=== PATIENT | female | born 1940 | race Caucasian/White ===

== ENCOUNTER 2017-12-11 12:42 | Inpatient (IN) | payer OTHER, MEDICARE ==
[~2017-12-11] VITALS: Ht 165.1 cm; Wt 97.8 kg
[2017-12-11] VITALS (19 sets, daily range): BP systolic 66–130; BP diastolic 40–60; PULSE 78–124; RESP 18–32; TEMP 94.6–96.1; O2SAT 88–100
[~2017-12-11 12:42] MED LIST: HYDR-3533 PO; HYDR200T3 PO; OYST500T77 PO; ST JTAB PO; TAB-TAB PO; UNKNOWN MED
[2017-12-11] MEDS ORDERED: SODIUM CHLOR 0.9% 1000 ML INJ 1,000 ML IV SCH ×2 (12:51→15:00)
[2017-12-11] MEDS ORDERED: SODIUM CHLORIDE 0.9% FLUSH 10 ML FLUSH IVF PRN (13:00)
[2017-12-11] MEDS ORDERED: METOCLOPRAMIDE HCL 10 MG/2 ML VIAL IV PUSH ONE (13:00)
[2017-12-11] MEDS ORDERED: MORPHINE SULFATE 4 MG/ML INJ IV PUSH ONE (13:00)
[2017-12-11] MEDS ORDERED: DIPHTH/TETANUS/ACEL PERTUSSIS (BOOSTER) 0.5 ML VIAL/PFS IM ONE (13:00)
[2017-12-11] MEDS ORDERED: fentaNYL CITRATE 250 MCG/5 ML AMP IV PUSH ONE (13:15)
[2017-12-11 13:23] LABS: AUTOMATED NEUTROPHIL # 15.9 TH/MM3 (1.8-7.7); BASOPHIL # 0.1 TH/MM3 (0-0.2); BASOPHIL % 0.3 % (0.0-2.0); EOSINOPHIL # 0.1 TH/MM3 (0-0.4); EOSINOPHIL % 0.7 % (0.0-4.0); HEMATOCRIT 31.2 % (35.0-46.0); HEMOGLOBIN 10.5 GM/DL (11.6-15.3); LYMPH % 19.4 % (9.0-44.0); MEAN CELL VOLUME 88.5 FL (80.0-100.0); MEAN CORPUSCULAR HEMOGLOBIN 29.7 PG (27.0-34.0); MEAN CORPUSCULAR HGB CONC 33.6 % (32.0-36.0); MEAN PLATELET VOLUME 8.4 FL (7.0-11.0); MONO % 3.3 % (0.0-8.0); MONOCYTE # 0.7 TH/MM3 (0-0.9); NEUT % 76.3 % (16.0-70.0); PLATELET COUNT 208 TH/MM3 (150-450); RED BLOOD COUNT 3.52 MIL/MM3 (4.00-5.30); RED CELL DISTRIBUTION WIDTH 13.6 % (11.6-17.2); WHITE BLOOD COUNT 20.8 TH/MM3 (4.0-11.0)
[2017-12-11 13:31] LABS: INTERNATIONAL NORMALIZED RATIO 1.1 RATIO; PROTHROMBIN TIME - PATIENT 11.4 SEC (9.8-11.6)
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
[2017-12-11 13:49] LABS: BICARBONATE 17.6 MEQ/L (21.0-32.0); CALCIUM 8.3 MG/DL (8.5-10.1); CREATININE 1.01 MG/DL (0.50-1.00)
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
[2017-12-11] MEDS ORDERED: IOHEXOL 350 MG/ML 10 ML VIAL (for RAD DIAG) IVCONTRAST ONE (13:56)
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
[2017-12-11] MEDS ORDERED: NOREPINEPHRINE-DEXTROSE DRIP 250 ML IV ONE (14:31)
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
[2017-12-11] MEDS ORDERED: MIDAZOLAM HCL 5 MG/ML VIAL (1 ML) ONE (14:43)
[2017-12-11] MEDS ORDERED: ROCURONIUM INJ 50 MG/5 ML VIAL ONE (14:43)
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
[2017-12-11] MEDS ORDERED: SODIUM BICARBONATE 8.4% INJ 50 MEQ/50 ML SYR ONE ×3 (16:44→18:27)
[2017-12-11] MEDS ORDERED: ALBUMIN 5% INJ 500 ML IV ONE (17:00)
--- NOTE | 2017-12-11 17:03 | ECHRPT ---
Indication: TRAUMA CONCLUSIONS Normal left ventricular size. The left ventricle is not well visualized. Moderate concentric left ventricular hypertrophy. The left ventricular systolic function is hyperdynamic with an estimated ejection fraction in the ra nge of 65- 70%. Mildly dilated descending thoracic aorta. Mitral annular calcification is present. Aortic valve sclerosis is present. Mild aortic valve regurgitation. There is trace tricuspid valve regurgitation. Mild pulmonary valve regurgitation. BP: / HR: Rhythm: MEASUREMENTS (Male / Female) Normal Values Technical Quality: 2D ECHO LV Diastolic Diameter PLAX 4.1 cm 4.2 - 5.9 / 3.9 - 5.3 cm LV Systolic Diameter PLAX 3.2 cm IVS Diastolic Thickness 1.1 cm 0.6 - 1.0 / 0.6 - 0.9 cm LVPW Diastolic Thickness 0.7 cm 0.6 - 1.0 / 0.6 - 0.9 cm LV Relative Wall Thickness 0.4 RV Internal Dim ED PLAX 1.9 cm M-MODE Aortic Root Diameter MM 3.3 cm AV Cusp Separation MM 2.0 cm DOPPLER Mitral E Point Velocity 60.7 cm/s Mitral A Point Velocity 74.0 cm/s Mitral E to A Ratio 0.8 TR Peak Velocity 337.0 cm/s TR Peak Gradient 45.4 mmHg Right Atrial Pressure 10.0 mmHg Pulmonary Artery Systolic Pressu 55.4 mmHg Right Ventricular Systolic Press 55.4 mmHg FINDINGS LEFT VENTRICLE Normal left ventricular size. The left ventricle is not well visualized. Moderate concentric left ventricular hypertrophy. The left ventricular systolic function is hyperdynamic with an estimated ejection fraction in the ra nge of 65- 70%. RIGHT VENTRICLE Normal right ventricular size and systolic function. LEFT ATRIUM The left atrial size is normal. RIGHT ATRIUM The right atrial size is normal. ATRIAL SEPTUM Normal atrial septal thickness without atrial level shunting by limited color doppler interrogation. AORTA The aortic root and proximal ascending aorta are normal in size on limited imaging. Mildly dilated descending thoracic aorta. MITRAL VALVE Mitral annular calcification is present. AORTIC VALVE Aortic valve sclerosis is present. Mild aortic valve regurgitation. TRICUSPID VALVE There is trace tricuspid valve regurgitation. PULMONARY VALVE Mild pulmonary valve regurgitation. VESSELS The inferior vena cava is normal in size. PERICARDIUM No pericardial effusion. Jose Golden MD, FACC (Electronically Signed) Final Date:11 December 2017 17:02
[2017-12-11] MEDS: VASOPRESSIN INJ 40 UNITS in DEXTROSE 5% IN WATER 100ML INJ 98 ML IV SCH ×2 (18:19)
[2017-12-11 18:25] LABS: ALBUMIN 1.7 GM/DL (3.4-5.0); CALCIUM 5.6 MG/DL (8.5-10.1); CREATININE 0.75 MG/DL (0.50-1.00); TOTAL BILIRUBIN ADULT 0.3 MG/DL (0.2-1.0); TOTAL PROTEIN 3.4 GM/DL (6.4-8.2)
[2017-12-11 18:28] LABS: CALCIUM-PROTEIN CORRECTED 7.3 MG/DL (8.5-10.1)
[2017-12-11] MEDS ORDERED: CALCIUM GLUCONATE 10% 1 GM/10 ML VIAL ONE (18:34)
[2017-12-11] MEDS ORDERED: CALCIUM GLUCONATE 10% 1 GM/10 ML VIAL IV PUSH ONE (18:40)
[2017-12-11] MEDS ORDERED: CALCIUM CHLORIDE 10% SOLN 1 GRAM/10 ML SYR IV ONE (18:40)
[2017-12-11] MEDS ORDERED: SODIUM BICARBONATE 8.4% INJ 50 MEQ/50 ML SYR IV ONE (18:40)
[2017-12-11] MEDS ORDERED: SODIUM CHLOR 0.9% 1000 ML INJ 1,000 ML IV ONE (18:45)
[2017-12-11] MEDS: SODIUM BICARBONATE 8.4% INJ 75 MEQ in SODIUM CHLOR 0.9% 1000 ML INJ 1,000 ML IV SCH (19:00)
[2017-12-11 19:11] LABS: AUTOMATED NEUTROPHIL # 8.4 TH/MM3 (1.8-7.7); BASOPHIL % 0.4 % (0.0-2.0); EOSINOPHIL % 0.2 % (0.0-4.0); HEMOGLOBIN 8.5 GM/DL (11.6-15.3); LYMPH % 7.7 % (9.0-44.0); LYMPHOCYTE # 0.8 TH/MM3 (1.0-4.8); MEAN CELL VOLUME 83.5 FL (80.0-100.0); MEAN CORPUSCULAR HEMOGLOBIN 28.3 PG (27.0-34.0); MEAN CORPUSCULAR HGB CONC 33.9 % (32.0-36.0); MEAN PLATELET VOLUME 7.2 FL (7.0-11.0); MONO % 5.3 % (0.0-8.0); MONOCYTE # 0.5 TH/MM3 (0-0.9); NEUT % 86.4 % (16.0-70.0); PLATELET COUNT 37 TH/MM3 (150-450); RED BLOOD COUNT 2.99 MIL/MM3 (4.00-5.30); RED CELL DISTRIBUTION WIDTH 19.1 % (11.6-17.2); WHITE BLOOD COUNT 9.8 TH/MM3 (4.0-11.0)
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
[2017-12-11] MEDS ORDERED: PHENYLEPHRINE HCL 10 MG/ML VIAL ONE (20:00)
[2017-12-11 20:08] LABS: BANDS 23 % (0-6); LYMPHOCYTES 2 % (9-44); METAMYELOCYTES 1 % (0-1); MONOCYTES 1 % (0-8); NEUTROPHIL # MANUAL DIFF 9.5 TH/MM3 (1.8-7.7); POLYS (SEG NEUTROPHILS) 73 % (16-70)
[2017-12-11 20:11] LABS: BURR CELLS 1+ (NORMAL); OVALOCYTES 1+ (NORMAL); TEARDROP RBCS 1+ (NORMAL)
[2017-12-11 20:44] LABS: INTERNATIONAL NORMALIZED RATIO 2.9 RATIO; PROTHROMBIN TIME - PATIENT 29.1 SEC (9.8-11.6)
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
[2017-12-11] MEDS ORDERED: PHENYLEPHRINE 40 MG in D5W 500 ML IV PRN (22:00)
[2017-12-11] MEDS ORDERED: NOREPINEPHRINE 4 MG/D5W 250 ML IV PRN (22:00)
[2017-12-11] MEDS ORDERED: SODIUM CHLOR 0.9% 1000 ML INJ 2,000 ML IV ONE (22:15)
[2017-12-11] MEDS ORDERED: NOREPINEPHRINE 8 MG/D5W 250 ML IV PRN ×2 (22:15)
[2017-12-11] MEDS ORDERED: PHENYLEPHRINE HCL 80 MG/D5W 492 ML ADMIX IV PRN ×2 (22:30)
[2017-12-11] MEDS ORDERED: SODIUM BICARBONATE 8.4% SOLN 50 MEQ/50 ML VIAL IV ONE (22:45)
[2017-12-11] MEDS ORDERED: NOREPINEPHRINE 16 MG/D5W 250 ML IV PRN ×2 (23:00)
[2017-12-11 23:09] LABS: HEMATOCRIT 26.3 % (35.0-46.0); HEMOGLOBIN 9.1 GM/DL (11.6-15.3); MEAN CELL VOLUME 87.8 FL (80.0-100.0); MEAN CORPUSCULAR HEMOGLOBIN 30.4 PG (27.0-34.0); MEAN CORPUSCULAR HGB CONC 34.6 % (32.0-36.0); MEAN PLATELET VOLUME 7.2 FL (7.0-11.0); PLATELET COUNT 311 TH/MM3 (150-450); RED CELL DISTRIBUTION WIDTH 15.6 % (11.6-17.2); WHITE BLOOD COUNT 8.8 TH/MM3 (4.0-11.0)
[2017-12-11] MEDS ORDERED: TERBUTALINE INJ 1 MG/ML AMP SQ PRN (23:15)
[2017-12-11] MEDS ORDERED: PHENYLEPHRINE HCL 160 MG/D5W 484 ML ADMIX IV PRN ×2 (23:15)
[2017-12-11] MEDS: MIDAZOLAM 50 MG/NS 50 ML DRIP Premix IV PRN (23:43)
[2017-12-12] VITALS (19 sets, daily range): BP systolic 75–159; BP diastolic 40–86; PULSE 91–182; RESP 25–36; TEMP 97–99.3; O2SAT 83–100
[2017-12-12] MEDS ORDERED: SODIUM BICARBONATE 8.4% SOLN 50 MEQ/50 ML VIAL IV SCH (02:00)
[2017-12-12 02:09] LABS: AUTOMATED NEUTROPHIL # 4.2 TH/MM3 (1.8-7.7); BASOPHIL % 0.2 % (0.0-2.0); EOSINOPHIL % 0.1 % (0.0-4.0); HEMATOCRIT 24.5 % (35.0-46.0); HEMOGLOBIN 8.2 GM/DL (11.6-15.3); LYMPH % 12.8 % (9.0-44.0); LYMPHOCYTE # 0.7 TH/MM3 (1.0-4.8); MEAN CELL VOLUME 90.2 FL (80.0-100.0); MEAN CORPUSCULAR HGB CONC 33.3 % (32.0-36.0); MEAN PLATELET VOLUME 7.1 FL (7.0-11.0); MONO % 5.4 % (0.0-8.0); MONOCYTE # 0.3 TH/MM3 (0-0.9); NEUT % 81.5 % (16.0-70.0); PLATELET COUNT 97 TH/MM3 (150-450); RED BLOOD COUNT 2.71 MIL/MM3 (4.00-5.30); RED CELL DISTRIBUTION WIDTH 15.1 % (11.6-17.2); WHITE BLOOD COUNT 5.2 TH/MM3 (4.0-11.0)
[2017-12-12 02:16] LABS: INTERNATIONAL NORMALIZED RATIO 1.5 RATIO; PROTHROMBIN TIME - PATIENT 15.1 SEC (9.8-11.6)
[2017-12-12 03:52] LABS: BANDS 26 % (0-6); LYMPHOCYTES 14 % (9-44); METAMYELOCYTES 2 % (0-1); MONOCYTES 2 % (0-8); NEUTROPHIL # MANUAL DIFF 4.4 TH/MM3 (1.8-7.7); POLYS (SEG NEUTROPHILS) 56 % (16-70)
[2017-12-12 06:30] LABS: INTERNATIONAL NORMALIZED RATIO 1.5 RATIO; PROTHROMBIN TIME - PATIENT 14.7 SEC (9.8-11.6)
[2017-12-12 08:05] LABS: BASOPHIL % 0.2 % (0.0-2.0); EOSINOPHIL % 0.2 % (0.0-4.0); HEMATOCRIT 34.8 % (35.0-46.0); HEMOGLOBIN 12.1 GM/DL (11.6-15.3); LYMPH % 10.2 % (9.0-44.0); LYMPHOCYTE # 0.7 TH/MM3 (1.0-4.8); MEAN CELL VOLUME 87.5 FL (80.0-100.0); MEAN CORPUSCULAR HEMOGLOBIN 30.4 PG (27.0-34.0); MEAN CORPUSCULAR HGB CONC 34.8 % (32.0-36.0); MEAN PLATELET VOLUME 7.2 FL (7.0-11.0); MONO % 2.8 % (0.0-8.0); MONOCYTE # 0.2 TH/MM3 (0-0.9); NEUT % 86.6 % (16.0-70.0); PLATELET COUNT 118 TH/MM3 (150-450); RED BLOOD COUNT 3.98 MIL/MM3 (4.00-5.30); RED CELL DISTRIBUTION WIDTH 14.5 % (11.6-17.2); WHITE BLOOD COUNT 6.9 TH/MM3 (4.0-11.0)
[2017-12-12 08:41] LABS: ALBUMIN 2.7 GM/DL (3.4-5.0); CALCIUM 5.4 MG/DL (8.5-10.1); CREATININE 1.62 MG/DL (0.50-1.00); TOTAL BILIRUBIN ADULT 0.9 MG/DL (0.2-1.0); TOTAL PROTEIN 5.2 GM/DL (6.4-8.2)
[2017-12-12 09:09] LABS: CALCIUM-PROTEIN CORRECTED 6.2 MG/DL (8.5-10.1)
--- NOTE | 2017-12-12 09:12 | EKG ---
Date Performed: 12/11/2017 Time Performed: 17:20:14 PTAGE: 77 years EKG: Atrial fibrillation. Incomplete RBBB Anterolateral T wave changes are nonspecific Abnormal ECG PREVIOUS TRACING : 05/25/2013 22.17 DOCTOR: Jose Golden Interpretating Date/Time 12/12/2017 09:11:32
[2017-12-12] MEDS ORDERED: CALCIUM GLUCONATE 10% 1 GM/10 ML VIAL IV PUSH ONE (09:15)
[2017-12-12] MEDS ORDERED: CALCIUM GLUCONATE 10% 1 GM/10 ML VIAL ONE (09:32)
[2017-12-12] MEDS ORDERED: POTASSIUM CHLOR 40 MEQ PREMIX 100 ML IV PRN ×2 (09:45)
[2017-12-12] MEDS ORDERED: BISACODYL 10 MG SUPP RECTAL PRN (09:45)
[2017-12-12] MEDS ORDERED: POTASSIUM PHOSPHATE MONOBASIC 500 MG TAB PO/TUBE PRN (09:45)
[2017-12-12] MEDS ORDERED: MAGNESIUM SULFATE INJ 2 GM in SODIUM CHLORIDE 0.9% INJ 96 ML IV PRN (09:45)
[2017-12-12] MEDS ORDERED: CHLORHEXIDINE GLUCONATE 2 % 1 PACK (2 CLOTHS) TOP PRN (09:45)
[2017-12-12] MEDS ORDERED: NURSING INFORMATION XX SCH (09:45)
[2017-12-12] MEDS ORDERED: GLUCAGON 1 MG/ML VIAL OTHER PRN (09:45)
[2017-12-12] MEDS ORDERED: LACTULOSE SYRUP 20 GM/30 ML CUP PO PRN (09:45)
[2017-12-12] MEDS ORDERED: MAGNESIUM SULFATE INJ 4 GM in SODIUM CHLORIDE 0.9% INJ 92 ML IV PRN (09:45)
[2017-12-12] MEDS ORDERED: POTASSIUM PHOSPHATE MONOBASIC 500 MG TAB PO PRN (09:45)
[2017-12-12] MEDS ORDERED: MAGNESIUM OXIDE 400 MG TAB PO PRN (09:45)
[2017-12-12] MEDS ORDERED: SODIUM PHOSPHATE INJ 30 MMOL in SODIUM CHLOR 0.9% 250 ML INJ 240 ML IV PRN (09:45)
[2017-12-12] MEDS ORDERED: SENNOSIDES 8.6 MG TAB PO PRN (09:45)
[2017-12-12] MEDS ORDERED: POTASSIUM PHOSPHATE INJ 30 MMOL in SODIUM CHLOR 0.9% 250 ML INJ 250 ML IV PRN (09:45)
[2017-12-12] MEDS: VASOPRESSIN INJ 40 UNITS in DEXTROSE 5% IN WATER 100ML INJ 98 ML IV SCH ×2 (10:04)
--- NOTE | 2017-12-12 11:05 | RADRPT ---
EXAM DATE: 12/12/2017 10:40 AM EDT AGE/SEX: 77 years / Female INDICATIONS: Follow-up for head injury. CLINICAL DATA: This is the patient's subsequent encounter. Patient reports that signs and symptoms h ave been present for 2 days and indicates a pain score of Nonresponsive. MEDICAL/SURGICAL HISTORY: Lupus. Hysterectomy. RADIATION DOSE: 66.03 CTDI (mGy) ;Tabletop exam ; Patient positioning COMPARISON: [facility] [place] BRAIN W/O CONTRAST, 12/11/2017. . TECHNIQUE: CT of the head without contrast. Using automated exposure control and adjustment of the mA and/or kV according to patient size, radiation dose was kept as low as reasonably achievable to ob tain optimal diagnostic quality images. FINDINGS: There is central and cortical atrophy with dilatation of ventricular and sulcal spaces. There is no parenchymal hemorrhage, acute infarction or mass lesion identified. There are no extra-axial fluid c ollections appreciated. Periventricular white matter changes are noted. The posterior fossa is unrem arkable with midline fourth ventricle. The portion of the orbits and paranasal sinuses visualized are unremarkable. CONCLUSION: Atrophy, otherwise negative for an acute process. There is no parenchymal hemorrhage. Juan R Dillard MD FACR Electronically signed by: Juan R Dillard MD 12/12/2017 11:03 AM EDT
[2017-12-12] MEDS: POTASSIUM CHLOR 20 MEQ PREMIX 100 ML IV PRN ×4 (11:30→15:00)
[2017-12-12] MEDS: MIDAZOLAM 50 MG/NS 50 ML DRIP Premix IV PRN (11:33)
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
[2017-12-12] MEDS ORDERED: CALCIUM GLUCONATE INJ 2 GM in SODIUM CHLORIDE 0.9% INJ 100 ML IV ONE (12:00)
[2017-12-12] MEDS: INSULIN ASPART SUPPLEMENTAL SCALE SQ SCH ×2 (12:00→17:49)
--- NOTE | 2017-12-12 12:10 | RADRPT ---
EXAM DATE: 12/12/2017 10:45 AM EDT AGE/SEX: 77 years / Female INDICATIONS: Follow-up for trauma. CLINICAL DATA: This is the patient's subsequent encounter. Patient reports that signs and symptoms h ave been present for 2 days and indicates a pain score of Nonresponsive. MEDICAL/SURGICAL HISTORY: Lupus. T-spine fractures, pelvic fractures. Hysterectomy. RADIATION DOSE: 10.13 CTDI (mGy) COMPARISON: [facility] [place], CT THORAX W CONTRAST, 12/11/2017. . TECHNIQUE: Multiple contiguous axial images were obtained through the chest without contrast. Image s were obtained in suspended respiration using multiple row detector helical technique. Using automa onur exposure control and adjustment of the mA and/or kV according to patient size, radiation dose was kept as low as reasonably achievable to obtain optimal diagnostic quality images. FINDINGS: There are fractures of T6, T7 and T11 with multiple bilateral lower rib fractures, similar in appeara nce to CT thoracic spine from December 11. Patient is intubated with endotracheal tube tip in proximal ri ght mainstem bronchus. This should be withdrawn about 3 cm. Over the last day there is some new perih ilar airspace consolidation and bibasilar consolidation has increased. There is placement of a right chest tube with decrease in size of right pleural effusion. Left pleural effusion has increased in si ze over the last day. There is no recurrent pneumothorax. There is development of anasarca to moderat e degree and ascites is now visualized in the upper abdomen. NG is coiled in stomach. CONCLUSION: 1. Intubation with ET tube tip in proximal right mainstem bronchus. This should be withdrawn about 3 cm. There is also a right central line with tip in superior vena cava. NG is coiled in stomach. Righ t chest tube is present without pneumothorax. 2. Increasing bilateral lung consolidation including basilar and dependent airspace disease and new consolidation anterior segment right upper lobe. 3. Decrease in right pleural effusion with chest tube placement. Increasing left pleural effusion an d basilar consolidation. 4. Development of anasarca and ascites in the upper abdomen. Electronically signed by: Addison Carmen MD 12/12/2017 12:09 PM EDT
--- NOTE | 2017-12-12 12:16 | RADRPT ---
EXAM DATE: 12/12/2017 10:47 AM EDT AGE/SEX: 77 years / Female INDICATIONS: Follow-up for trauma. CLINICAL DATA: This is the patient's subsequent encounter. Patient reports that signs and symptoms h ave been present for 2 days and indicates a pain score of Nonresponsive. MEDICAL/SURGICAL HISTORY: Lupus. T-spine fractures, pelvic fractures. Hysterectomy. RADIATION DOSE: 10.13 CTDI (mGy) ; Combined studies COMPARISON: [facility] [place], CT ABDOMEN & PELVIS W CONTRAST, 12/11/2017. . TECHNIQUE: Multiple contiguous axial images were obtained through the abdomen. Images were obtained using multiple row detector helical technique. Using dose reduction techniques, radiation dose was ke pt as low as reasonably achievable to obtain optimal diagnostic quality images. FINDINGS: Again seen are multiple thoracic spine fractures, including T6, T7 and T11 bilateral lower rib fractu res. Fracture of the right iliac bone and right sacral alar relatively stable since December 11. Indications previous exam a right chest tube has been placed with decrease in right pleural effusion. Increase in left effusion and basilar consolidation. There is development of mild to moderate anasarca since prior exam and ascites has developed, possibl y hemoperitoneum around the liver. The right-sided pelvic fracture is associated with development of a large hematoma on the right measuring up to 20.5 cm in length and 13.8 cm in diameter. There is some excretion of contrast into the gallbladder with multiple gallstones present. No definit e increase in the liver or spleen or adrenals or pancreas. There is some residual contrast in the kid neys. IVC is mildly flattened suggesting hypovolemia. There is previous anni fixation proximal right f emur. CONCLUSION: 1. Development of a large hematoma on the right centered around the right hemipelvis fractures measu ring up to 20.5 cm in length and 13.8 cm in diameter with development of mild to moderate ascites мария ecially around the liver and spleen which probably represents hemoperitoneum. 2. Development of mild to moderate anasarca. Increasing left effusion. Right chest tube with decreas e in right effusion. 3. Stable fractures of lower thoracic spine and bilateral lower ribs. Electronically signed by: Addison Carmen MD 12/12/2017 12:15 PM EDT
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
[2017-12-12 12:59] LABS: HEMATOCRIT 32.9 % (35.0-46.0); HEMOGLOBIN 11.5 GM/DL (11.6-15.3)
--- NOTE | 2017-12-12 13:28 | OTSOAPIP ---
TIME SESSION COMPLETED: AM TREATMENT TIME: 0 MINS. CHART REVIEWED. PATIENT ADMITTED WITH 1. COMMINUTED TYPE III C2 FRACTURE WITH MILD RETROPULSION. 2. C6 LEFT INFERIOR ARTICULAR FACET FRACTURE 3. [place] MILDLY TO MODERATELY DISPLACED T6-7 VERTEBRAL BODY FRACTURE WITH MILD TO MODERATE CANAL COMPROMISE. . 4. T11 INFERIOR VERTEBRAL BODY FRACTURE WITHOUT RETROPULSION PATIENT WILL NEED SURGICALLY CORRECTION WILL HOLD OCCUPATIONAL THERAPY AT THIS TIME. INTERDISCIPLINARY COMMUNICATION: CONSULTED WITH NURSING Therapist: CELI CARBONE/All Signature on file
--- NOTE | 2017-12-12 13:49 | MP ---
cc: Wayne Roberto MD DATE OF OPERATION: 12/11/2017 PREOPERATIVE DIAGNOSIS: Hemorrhagic shock, multiple traumatic injuries of the chest, abdomen and pelvis as well as spine. POSTOPERATIVE DIAGNOSIS: Hemorrhagic shock, multiple traumatic injuries of the chest, abdomen and pelvis as well as spine. OPERATIVE PROCEDURE: Intubation, placement of a triple lumen catheter and placement of the right chest tube. SURGEON: Wayne Roberto MD ANESTHESIA: General. ESTIMATED BLOOD LOSS: Minimal. INDICATIONS FOR PROCEDURE: This patient came hypotensive and somnolent to the ICU. It was clear that the patient was going to require a large amount of blood and blood products and was going to be intubated and ventilated. Therefore first intubation is carried out. The patient is sedated with some Versed and given a small amount of rocuronium in the face of her hypotension. The dentures were removed and then the patient is pre-bagged and pre-ventilated to 100% FIO2. With a bag mask, the curved blade is now inserted and vocal cords visualized. A size 8 mm endotracheal tube is placed and secured. Chest x-ray obtained. Bilateral breath sounds noted and end tidal CO2 was checked. The patient tolerated this part of the procedure well. The patient is now positioned and the right hemopneumothorax is attended. The area infiltrated with 1% Xylocaine. A small incision was made in the fifth intercostal space mid axillary line. This was deepened into the chest and then a 28-Romanian chest tube is placed and sutured in place with 0 silk connected to Pleur-Evac. About 450 mL of old blood obtained and the lung readily expands. Now, the right subclavian area was prepped and draped in usual fashion. The area infiltrated with 1% Xylocaine. A needle inserted in the right subclavian vein. Through the needle, a J-wire, dilator and triple lumen placed. The triple lumen was sutured in place with 2-0 silk and at the end of all the procedures, a chest x-ray obtained. The patient tolerated the procedures well. Wayne Roberto MD SJ/DL , 01:23 PM , 01:48 PM
[2017-12-12] MEDS: MORPHINE SULFATE 4 MG/ML INJ IV PUSH PRN ×3 (13:52→20:07)
[2017-12-12] MEDS ORDERED: FUROSEMIDE 20 MG/2 ML VIAL IV ONE (14:15)
[2017-12-12] MEDS ORDERED: SODIUM BICARBONATE 8.4% INJ 50 MEQ/50 ML SYR IV ONE (15:59)
[2017-12-12] MEDS: RESP: ALBUTEROL 2.5 MG/IPRATROPIUM 0.5 MG NEB (SCH) NEB ×2 (16:49→21:23)
[2017-12-12] MEDS: MAGNESIUM HYDROXIDE SUSP 30 ML CUP PO SCH ×2 (17:00→21:00)
[2017-12-12] MEDS: SODIUM BICARBONATE 8.4% INJ 75 MEQ in SODIUM CHLOR 0.9% 1000 ML INJ 1,000 ML IV SCH (17:03)
[2017-12-12] MEDS: DEXTROSE 50% IN WATER 50 ML SYRINGE IV PUSH PRN (17:49)
[2017-12-12 18:45] LABS: HEMATOCRIT 28.4 % (35.0-46.0); HEMOGLOBIN 9.8 GM/DL (11.6-15.3)
[2017-12-12] MEDS: CHLORHEXIDINE 0.12% (ORAL KIT) 15 ML CUP MT SCH (20:00)
[2017-12-12] MEDS: FAMOTIDINE 20 MG TAB PO SCH (21:00)
[2017-12-12] MEDS: DOCUSATE SODIUM 50 MG/SENNA 8.6 MG TAB PO SCH (21:00)
[2017-12-12 21:30] LABS: HEMATOCRIT 31.4 % (35.0-46.0); HEMOGLOBIN 10.9 GM/DL (11.6-15.3)
[2017-12-12] MEDS ORDERED: AMIODARONE 150 MG/D5W 97 ML BOLUS 10 MINUTES IV ONE ×2 (23:30)
[2017-12-12] MEDS ORDERED: AMIODARONE INJ 450 MG in D5W (EXCEL BAG) INJ 241 ML IV PRN (23:30)
[2017-12-12] MEDS: AMIODARONE INJ 450 MG in D5W (EXCEL BAG) INJ 241 ML IV PRN (23:49)
[2017-12-13] VITALS (17 sets, daily range): BP systolic 95–124; BP diastolic 54–78; PULSE 75–164; RESP 23–28; TEMP 97.2–99; O2SAT 87–100
[2017-12-13 01:39] LABS: AUTOMATED NEUTROPHIL # 12.2 TH/MM3 (1.8-7.7); BASOPHIL % 0.1 % (0.0-2.0); HEMATOCRIT 30.4 % (35.0-46.0); HEMOGLOBIN 10.4 GM/DL (11.6-15.3); LYMPH % 5.6 % (9.0-44.0); LYMPHOCYTE # 0.8 TH/MM3 (1.0-4.8); MEAN CELL VOLUME 85.1 FL (80.0-100.0); MEAN CORPUSCULAR HEMOGLOBIN 29.2 PG (27.0-34.0); MEAN CORPUSCULAR HGB CONC 34.3 % (32.0-36.0); MEAN PLATELET VOLUME 8.1 FL (7.0-11.0); MONOCYTE # 0.4 TH/MM3 (0-0.9); NEUT % 91.3 % (16.0-70.0); PLATELET COUNT 79 TH/MM3 (150-450); RED BLOOD COUNT 3.57 MIL/MM3 (4.00-5.30); RED CELL DISTRIBUTION WIDTH 14.5 % (11.6-17.2); WHITE BLOOD COUNT 13.4 TH/MM3 (4.0-11.0)
[2017-12-13 02:26] LABS: ALBUMIN 2.3 GM/DL (3.4-5.0); CALCIUM 5.7 MG/DL (8.5-10.1); CREATININE 1.55 MG/DL (0.50-1.00); MAGNESIUM 1.5 MG/DL (1.5-2.5); TOTAL BILIRUBIN ADULT 0.9 MG/DL (0.2-1.0); TOTAL PROTEIN 4.5 GM/DL (6.4-8.2)
[2017-12-13 02:28] LABS: CALCIUM-PROTEIN CORRECTED 6.9 MG/DL (8.5-10.1)
[2017-12-13] MEDS: RESP: ALBUTEROL 2.5 MG/IPRATROPIUM 0.5 MG NEB (SCH) NEB ×4 (02:40→21:22)
[2017-12-13 02:57] LABS: BANDS 24 % (0-6); CORRECTED NUCLEATED RBC 2 /100 WBC (0-0); LYMPHOCYTES 3 % (9-44); METAMYELOCYTES 2 % (0-1); MONOCYTES 2 % (0-8); NEUTROPHIL # MANUAL DIFF 12.7 TH/MM3 (1.8-7.7); NUCLEATED RED BLOOD CELL 2 (0-0); POLYS (SEG NEUTROPHILS) 69 % (16-70)
[2017-12-13 03:12] LABS: TEARDROP RBCS 1+ (NORMAL)
[2017-12-13] MEDS ORDERED: CALCIUM GLUCONATE INJ 2 GM in SODIUM CHLORIDE 0.9% INJ 100 ML IV ONE (03:15)
[2017-12-13] MEDS: METOPROLOL TARTRATE 5 MG/5 ML VIAL IV PUSH SCH ×4 (03:16→21:00)
[2017-12-13] MEDS: VASOPRESSIN INJ 40 UNITS in DEXTROSE 5% IN WATER 100ML INJ 98 ML IV SCH ×4 (03:24→21:08)
[2017-12-13] MEDS: CHLORHEXIDINE GLUCONATE 2 % 1 PACK (2 CLOTHS) TOP SCH (04:00)
--- NOTE | 2017-12-13 04:50 | RADRPT ---
EXAM DATE: 12/13/2017 4:42 AM EDT AGE/SEX: 77 years / Female INDICATIONS: Shortness of breath. CLINICAL DATA: This is the patient's subsequent encounter. Patient reports that signs and symptoms h ave been present for 2 days and indicates a pain score of Nonresponsive. MEDICAL/SURGICAL HISTORY: Non-responsive. Non-responsive. COMPARISON: [facility] [place], CHEST SINGLE AP, 12/11/2017. . FINDINGS: Single AP view the chest. Endotracheal tube and nasogastric tube, right-sided chest tube, and right s ubclavian central venous catheter remain in place. Lung volumes are low. Mild bilateral perihilar pul monary opacity no evidence of pneumothorax. CONCLUSION: 1. Low lung volumes with new perihilar opacity that may represent vascular crowding from the low vol umes or mild pulmonary edema. 2. No evidence of pneumothorax. 3. There has been apparent retraction of the endotracheal tube with the tip now approximately 5 cm a vanessa the gigi. Electronically signed by: Josué Galloway MD 12/13/2017 4:49 AM EDT
[2017-12-13 05:56] LABS: HEMOGLOBIN 10.3 GM/DL (11.6-15.3)
[2017-12-13] MEDS: INSULIN ASPART SUPPLEMENTAL SCALE SQ SCH ×4 (06:00→18:00)
[2017-12-13] MEDS ORDERED: DIGOXIN 0.5 MG/2 ML VIAL IV PUSH ONE (08:00)
[2017-12-13] MEDS: CHLORHEXIDINE 0.12% (ORAL KIT) 15 ML CUP MT SCH ×2 (08:00→20:00)
[2017-12-13] MEDS ORDERED: METOPROLOL TARTRATE 5 MG/5 ML VIAL IV PUSH ONE (08:00)
[2017-12-13] MEDS ORDERED: AMIODARONE INJ 450 MG in D5W (EXCEL BAG) INJ 241 ML IV PRN (08:15)
[2017-12-13 08:25] LABS: BICARBONATE 15.7 MEQ/L (21.0-32.0); CALCIUM 6.3 MG/DL (8.5-10.1); CREATININE 1.49 MG/DL (0.50-1.00)
[2017-12-13 08:50] LABS: CALCIUM-PROTEIN CORRECTED 7.6 MG/DL (8.5-10.1); TOTAL PROTEIN 4.4 GM/DL (6.4-8.2)
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
[2017-12-13] MEDS: MAGNESIUM HYDROXIDE SUSP 30 ML CUP PO SCH ×2 (09:12→21:00)
[2017-12-13] MEDS: DOCUSATE SODIUM 50 MG/SENNA 8.6 MG TAB PO SCH ×2 (09:12→21:00)
[2017-12-13] MEDS: FAMOTIDINE 20 MG TAB PO SCH ×2 (09:12→22:03)
--- NOTE | 2017-12-13 09:22 | RADRPT ---
EXAM DATE: 12/13/2017 8:34 AM EDT AGE/SEX: 77 years / Female INDICATIONS: Evaluate for fracture. CLINICAL DATA: This is the patient's subsequent encounter. Patient reports that signs and symptoms h ave been present for 1 day and indicates a pain score of Nonresponsive. MEDICAL/SURGICAL HISTORY: Non-responsive. Non-responsive. COMPARISON: No prior exams available for comparison. FINDINGS: Significant periarticular soft tissue swelling is noted. Cowd-xl-[id number] arthropathy is seen of the tibiotalar joint. There is joint space narrowing with mild subchondral sclerosis. Ankle mortise is we ll-maintained. Mild spurring is seen along the inferior surface of the medial malleolus. There is no evidence of acute fracture or dislocation. Spurs are identified at the Achilles tendon and plantar tendon attachment on the calcaneus. CONCLUSION: 1. Soft tissue swelling without evidence of acute fracture. 2. Mild to moderate arthropathy of the tibial talar joint 3. Calcaneal spurs. Electronically signed by: Romel Abad MD 12/13/2017 9:21 AM EDT
--- NOTE | 2017-12-13 09:24 | RADRPT ---
EXAM DATE: 12/13/2017 8:31 AM EDT AGE/SEX: 77 years / Female INDICATIONS: Evaluate for fracture. CLINICAL DATA: This is the patient's initial encounter. Patient reports that signs and symptoms have been present for 1 day and indicates a pain score of Nonresponsive. MEDICAL/SURGICAL HISTORY: Non-responsive. Non-responsive. COMPARISON: No prior exams available for comparison. FINDINGS: Soft tissue swelling is evident throughout the thigh and upper calf. Mild arthropathy of the patellofemoral joint is noted. Osseous structures are otherwise intact no evidence of acute fracture or dislocation. CONCLUSION: Soft tissue swelling without evidence of acute fracture. Mild patellofemoral arthropathy. Electronically signed by: Romel Abad MD 12/13/2017 9:22 AM EDT
--- NOTE | 2017-12-13 09:25 | RADRPT ---
EXAM DATE: 12/13/2017 8:33 AM EDT AGE/SEX: 77 years / Female INDICATIONS: Evaluate for fracture. CLINICAL DATA: This is the patient's initial encounter. Patient reports that signs and symptoms have been present for 1 day and indicates a pain score of Nonresponsive. MEDICAL/SURGICAL HISTORY: Non-responsive. Non-responsive. COMPARISON: No prior exams available for comparison. FINDINGS: Soft tissue swelling is evident throughout the lower thigh and upper calf. Bony structures are intact without evidence of acute fracture or dislocation. Significant patellofemoral degenerative disease is noted. Increased density in the suprapatellar burs a is characteristic of a joint effusion. CONCLUSION: Soft tissue swelling without evidence of acute fracture. Moderate patellofemoral degenerative joint disease. Suspect a small joint effusion. Electronically signed by: Romel Abad MD 12/13/2017 9:24 AM EDT
[2017-12-13] MEDS ORDERED: FUROSEMIDE 20 MG/2 ML VIAL IV PUSH ONE (10:15)
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
--- NOTE | 2017-12-13 11:05 | OTSOAPIP ---
TIME SESSION COMPLETED: TREATMENT TIME: MINS. CHART REVIEWED. S: PAIN: UNABLE TO RATE VENTILATED O: VIVIAN ARAUJO REQUESTS TO HOLD DUE TO UNSTABLE HR A: PATIENT RESPONSE TO TREATMENT:CONTINUE TO MONITOR P: EVALUATION WHEN STABLE _X_ PT WAS INSTRUCTED TO NOT GET OUT OF BED OR CHAIR WITHOUT ASSISTANCE. CALL SARAVIA WAS LEFT WITHIN REACH. DISABILITIES ELEMENTS SCORE - SELF-FEEDING ____ 4 = INDEPENDENT: EATS FROM A DISH AND DRINKS FROM A CUP OR GLASS PRESENTED IN THE CUSTOMARY MANNER ON TABLE OR TRAY. USES ORDINARY KNIFE, FORK, AND SPOON. ____ 3 = INDEPENDENT WITH DEVICE: USES AN ADAPTIVE OR ASSISTING DEVICE SUCH A STRAW, SPORK, OR ROCKING KNIFE OR REQUIRES MORE THAN A REASONABLE TIME TO EAT. ____ 2 = DEPENDENT - PARTIAL HELP REQUIRED: PERFORMS HALF OR MORE OF FEEDING TASKS BUT REQUIRES SUPERVISION (E.G., STANDBY, CUEING, OR COAXING), SETUP (APPLICATION OF ORTHOTICS), OR OTHER HELP. __X__ 1 = DEPENDENT - TOTAL HELP REQUIRED: EITHER PERFORMS LESS THAN HALF OF FEEDING TASKS, OR DOES NOT EAT OR DRINK FULL MEALS BY MOUTH AND RELIES AT LEAST IN PART ON OTHER MEANS OF ALIMENTATION, SUCH PARENTERAL OR GASTROSTOMY FEEDINGS. INTERDISCIPLINARY COMMUNICATION:VIVIAN ARAUJODEVELOPMENT TEAM LEAD RECOMMENDATION/ATTENTION CASE MANAGEMENT: EQUIPMENT: ___ 3-1 BEDSIDE COMMODE ___ DROP ARM COMMODE ___ SLIDING BOARD ___ SHOWER BENCH ___ NONE ___ OTHER: CONTINUED THERAPY: ___ OT AT REHAB ___ HOME WITH NO OT RECOMMENDED ___ HOME WITH HOME HEALTH OT ___ HOME WITH OUT PATIENT OT ___ REQUIRES SUPERVISION AT HOME FOR SAFETY ___ OTHER: Therapist: Elina Santiago OTR/L Signature on file
[2017-12-13] MEDS: DIGOXIN 0.5 MG/2 ML VIAL IV PUSH SCH ×2 (12:00→18:00)
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
[2017-12-13] MEDS: MIDAZOLAM 50 MG/50 ML INJ 50 ML IV PRN (13:57)
[2017-12-13 16:11] LABS: HEMATOCRIT 32.8 % (35.0-46.0); HEMOGLOBIN 11.4 GM/DL (11.6-15.3)
[2017-12-13 16:35] LABS: CALCIUM 6.5 MG/DL (8.5-10.1); CREATININE 1.45 MG/DL (0.50-1.00)
[2017-12-13 17:17] LABS: CALCIUM-PROTEIN CORRECTED 7.5 MG/DL (8.5-10.1)
[2017-12-13] MEDS: SODIUM BICARBONATE 8.4% INJ 75 MEQ in SODIUM CHLOR 0.9% 1000 ML INJ 1,000 ML IV SCH (18:23)
--- NOTE | 2017-12-13 19:00 | EKG ---
Date Performed: 12/12/2017 Time Performed: 23:13:22 PTAGE: 77 years EKG: Atrial fibrillation with uncontrolled ventricular response Possible inferior infarct - age undetermined Possible anterior infarct - age undetermined Lateral ST-T changes may be due to myocardi al ischemia Low QRS voltages in precordial leads when compared to prior EKG, patient now has rapid ve ntricular rate Abnormal ECG NO PREVIOUS TRACING DOCTOR: Zeenat Sandhu Interpretating Date/Time 12/13/2017 18:59:56
[2017-12-13 20:36] LABS: HEMATOCRIT 31.2 % (35.0-46.0); HEMOGLOBIN 10.6 GM/DL (11.6-15.3)
[2017-12-14] VITALS (18 sets, daily range): BP systolic 113–145; BP diastolic 53–67; PULSE 73–130; RESP 13–31; TEMP 97.3–98.2; O2SAT 92–99
[2017-12-14] LABS: HEMATOCRIT 30.2 % (35.0-46.0); HEMOGLOBIN 10.5 GM/DL (11.6-15.3)
[2017-12-14] MEDS: DIGOXIN 0.5 MG/2 ML VIAL IV PUSH SCH ×2 (00:07→08:20)
[2017-12-14] MEDS: METOPROLOL TARTRATE 5 MG/5 ML VIAL IV PUSH SCH ×3 (03:00→09:45)
[2017-12-14] MEDS: AMIODARONE INJ 450 MG in D5W (EXCEL BAG) INJ 241 ML IV PRN (03:02)
[2017-12-14] MEDS: CHLORHEXIDINE GLUCONATE 2 % 1 PACK (2 CLOTHS) TOP SCH (03:12)
[2017-12-14] MEDS: RESP: ALBUTEROL 2.5 MG/IPRATROPIUM 0.5 MG NEB (SCH) NEB ×4 (04:16→19:29)
--- NOTE | 2017-12-14 04:23 | RADRPT ---
EXAM DATE: 12/14/2017 4:04 AM EDT AGE/SEX: 77 years / Female INDICATIONS: Short of breath. CLINICAL DATA: This is the patient's subsequent encounter. Patient reports that signs and symptoms h ave been present for 4 - 6 days and indicates a pain score of Nonresponsive. MEDICAL/SURGICAL HISTORY: Non-responsive. Non-responsive. COMPARISON: [facility] [place], CHEST SINGLE AP, 12/13/2017. . FINDINGS: The ET tube, NG tube and right subclavian line are well placed. There is a right-sided chest tube. A pneumothorax is not seen. The heart size is enlarged. There is increased density at the left base wit h silhouetting of the left hemidiaphragm. The patient is status post vertebroplasty at T12. CONCLUSION: Cardiomegaly. Left lower lobe consolidation or atelectasis. Electronically signed by: Carlo Alcantar MD 12/14/2017 4:21 AM EDT
[2017-12-14 05:38] LABS: BASOPHIL % 0.1 % (0.0-2.0); EOSINOPHIL # 0.1 TH/MM3 (0-0.4); EOSINOPHIL % 0.6 % (0.0-4.0); HEMATOCRIT 29.3 % (35.0-46.0); HEMOGLOBIN 10.3 GM/DL (11.6-15.3); LYMPH % 5.7 % (9.0-44.0); LYMPHOCYTE # 0.8 TH/MM3 (1.0-4.8); MEAN CELL VOLUME 86.3 FL (80.0-100.0); MEAN CORPUSCULAR HEMOGLOBIN 30.3 PG (27.0-34.0); MEAN CORPUSCULAR HGB CONC 35.1 % (32.0-36.0); MEAN PLATELET VOLUME 9.3 FL (7.0-11.0); MONOCYTE # 0.3 TH/MM3 (0-0.9); NEUT % 91.6 % (16.0-70.0); PLATELET COUNT 66 TH/MM3 (150-450); RED CELL DISTRIBUTION WIDTH 14.6 % (11.6-17.2); WHITE BLOOD COUNT 14.2 TH/MM3 (4.0-11.0)
[2017-12-14] MEDS: INSULIN ASPART SUPPLEMENTAL SCALE SQ SCH ×5 (06:00→23:35)
[2017-12-14 06:21] LABS: ALBUMIN 2.3 GM/DL (3.4-5.0); BICARBONATE 18.3 MEQ/L (21.0-32.0); CALCIUM 6.6 MG/DL (8.5-10.1); CALCIUM-PROTEIN CORRECTED 7.8 MG/DL (8.5-10.1); CREATININE 1.23 MG/DL (0.50-1.00); MAGNESIUM 2.3 MG/DL (1.5-2.5); TOTAL BILIRUBIN ADULT 1.6 MG/DL (0.2-1.0); TOTAL PROTEIN 4.7 GM/DL (6.4-8.2)
[2017-12-14 07:55] LABS: BANDS 12 % (0-6); CORRECTED NUCLEATED RBC 4 /100 WBC (0-0); LYMPHOCYTES 2 % (9-44); MONOCYTES 3 % (0-8); NEUTROPHIL # MANUAL DIFF 13.5 TH/MM3 (1.8-7.7); NUCLEATED RED BLOOD CELL 4 (0-0); POLYS (SEG NEUTROPHILS) 83 % (16-70)
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
[2017-12-14] MEDS: MAGNESIUM HYDROXIDE SUSP 30 ML CUP PO SCH ×2 (08:12→21:00)
[2017-12-14] MEDS: DOCUSATE SODIUM 50 MG/SENNA 8.6 MG TAB PO SCH ×2 (08:12→21:00)
[2017-12-14] MEDS: CHLORHEXIDINE 0.12% (ORAL KIT) 15 ML CUP MT SCH ×2 (08:12→20:11)
[2017-12-14] MEDS: FAMOTIDINE 20 MG TAB PO SCH ×2 (08:20→21:00)
--- NOTE | 2017-12-14 09:03 | HHI.NSPN ---
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 (%) (Auto) 0.6 % Basophils (%) (Auto) 0.1 % Neutrophils # (Auto) 13.0 TH/MM3 Lymphocytes # (Auto) 0.8 TH/MM3 Monocytes # (Auto) 0.3 TH/MM3 Eosinophils # (Auto) 0.1 TH/MM3 Basophils # (Auto) 0.0 TH/MM3 CBC Comment AUTO DIFF Differential Total Cells Counted 100 Neutrophils % (Manual) 83 % Band Neutrophils % 12 % Lymphocytes % 2 % Monocytes % 3 % Neutrophils # (Manual) 13.5 TH/MM3 Nucleated Red Blood Cells 4 /100 WBC Differential Comment FINAL DIFF MANUAL Platelet Estimate LOW Platelet Morphology Comment NORMAL Red Cell Morphology Comment NORMAL Blood Urea Nitrogen 27 MG/DL Creatinine 1.23 MG/DL Random Glucose 123 MG/DL Total Protein 4.7 GM/DL Albumin 2.3 GM/DL Calcium Level 6.6 MG/DL Magnesium Level 2.3 MG/DL Alkaline Phosphatase 99 U/L Aspartate Amino Transf (AST/SGOT) 1754 U/L Alanine Aminotransferase (ALT/SGPT) 1933 U/L Total Bilirubin 1.6 MG/DL Sodium Level 153 MEQ/L Potassium Level 3.6 MEQ/L Chloride Level 120 MEQ/L Carbon Dioxide Level 18.3 MEQ/L Anion Gap 15 MEQ/L Estimat Glomerular Filtration Rate 42 ML/MIN Protein Corrected Calcium 7.8 MG/DL (Pravin Salmeron) Medical Decision Making Impression and Plan Impression: 1. Comminuted type III C2 fracture with mild retropulsion. 2. C6 left inferior articular facet fracture 3. Oblique mildly to moderately displaced T6-7 vertebral body fracture with mild to moderate canal compromise. Patiently reportedly moving lower extremities prior to intubation and sedation. 4. T11 inferior vertebral body fracture without retropulsion 5. Previous T12 kyphoplasty Patient is still critical. She did not follow any commands but moved all extremities to noxious stimulation with the LUE being purposefully. She was also moving the BUE spontaneously. Past 24 hrs: 99.0 T max. Tachycardia yesterday morning. Reviewed labs for today. Increase in leukocytosis. Essentially stable haemoglobin level. Drop in platelet count. Sodium 153. Hypokalemia. Slight improvement in renal function. Improvement in transaminases. CT brain w/o acute findings, atrophy noted. Plan: Discussed patient & plan of care w/family. Primary & critical care management per Trauma Surgery. Continue intubation and ventilatory support MRI cervical and thoracic spine when stable for transport and study. Neuro checks. Bedrest & log roll only due to thoracic spine instability at fracture site. She will eventually require halo brace and thoracic fusion with instrumentation when clinically stable to undergo the procedure. (Pravin Salmeron) Attending Statement The exam, history, and the medical decision-making described in the above note were completed with the assistance of the mid-level provider. I reviewed and agree with the findings presented. I attest that I had a [id number] encounter with the patient on the same day, and personally performed and documented my assessment and findings in the medical record. Patient remains intubated and sedated on 12/14/2017. Atrial fibrillation with RVR. Now on amiodarone. On small dose vasopressin today. Continues occasional eye-opening, moving all extremities spontaneous, mostly nonpurposeful upper extremities per nursing staff. Continue bedrest, logroll. Cervical collar for cervical fractures. Patient remains in critical condition. She will need surgical stabilization of the thoracic fracture and halo placement for cervical fracture when medically stable. (Andry Vee MD) Pravin Salmeron Dec 14, 2017 09:03 Andry Vee MD Dec 14, 2017 22:41
[2017-12-14] MEDS: LACTATED RINGER'S 1000 ML INJ 1,000 ML IV SCH ×2 (10:01→21:30)
[2017-12-14] MEDS: AMIODARONE 200 MG TAB PO SCH ×2 (10:08→21:00)
--- NOTE | 2017-12-14 10:47 | OTSOAPIP ---
TIME SESSION COMPLETED: 1030 TREATMENT TIME: 0 MINS. CHART REVIEWED. S: PAIN: NA O: PATIENT HAS NOW CONVERTED TO AFIB, [facility] REQUESTS TO HOLD. A: PATIENT RESPONSE TO TREATMENT:NOT APPLICABLE P: HOLD EVAL _X_ PT WAS INSTRUCTED TO NOT GET OUT OF BED OR CHAIR WITHOUT ASSISTANCE. CALL SARAVIA WAS LEFT WITHIN REACH. DISABILITIES ELEMENTS SCORE - SELF-FEEDING ____ 4 = INDEPENDENT: EATS FROM A DISH AND DRINKS FROM A CUP OR GLASS PRESENTED IN THE CUSTOMARY MANNER ON TABLE OR TRAY. USES ORDINARY KNIFE, FORK, AND SPOON. ____ 3 = INDEPENDENT WITH DEVICE: USES AN ADAPTIVE OR ASSISTING DEVICE SUCH A STRAW, SPORK, OR ROCKING KNIFE OR REQUIRES MORE THAN A REASONABLE TIME TO EAT. ____ 2 = DEPENDENT - PARTIAL HELP REQUIRED: PERFORMS HALF OR MORE OF FEEDING TASKS BUT REQUIRES SUPERVISION (E.G., STANDBY, CUEING, OR COAXING), SETUP (APPLICATION OF ORTHOTICS), OR OTHER HELP. ____ 1 = DEPENDENT - TOTAL HELP REQUIRED: EITHER PERFORMS LESS THAN HALF OF FEEDING TASKS, OR DOES NOT EAT OR DRINK FULL MEALS BY MOUTH AND RELIES AT LEAST IN PART ON OTHER MEANS OF ALIMENTATION, SUCH PARENTERAL OR GASTROSTOMY FEEDINGS. INTERDISCIPLINARY COMMUNICATION:RN Therapist: Elina Santiago OTR/L Signature on file
[2017-12-14] MEDS ORDERED: VASOPRESSIN 20 UNITS/ML VIAL ONE (10:57)
[2017-12-14] MEDS: VASOPRESSIN 40 U/D5W 100 ML Titrate, Post Cardiac Surgery IV PRN ×2 (11:19)
[2017-12-14] MEDS ORDERED: AMIODARONE 150 MG/D5W 97 ML BOLUS 10 MINUTES IV ONE ×4 (11:30→21:45)
--- NOTE | 2017-12-14 11:42 | RADRPT ---
EXAM DATE: 12/14/2017 11:36 AM EDT AGE/SEX: 77 years / Female INDICATIONS: Bilateral leg swelling. CLINICAL DATA: This is the patient's initial encounter. Patient reports that signs and symptoms have been present for 1 day and indicates a pain score of Nonresponsive. MEDICAL/SURGICAL HISTORY: . Lupus. Chemotherapy. Hysterectomy. Right arm surgery. Intubated. COMPARISON: . TECHNIQUE: Venous ultrasound of both lower extremities was performed from the inguinal ligament to t he proximal calf. Real-time, color Doppler and spectral tracing, compression and augmentation techni ques were used. FINDINGS: Right Leg: Normal compression of the deep venous system from the inguinal region to the proximal kristyn f. No echogenic clot is seen. Normal response of the venous system to augmentation and respiration. Left Leg: Good visualization of the left deep venous system without thrombosis. 3.4 cm popliteal cys t. CONCLUSION: 1. Negative for deep venous thrombosis. 2. 3.4 cm popliteal cyst on the left Electronically signed by: Juan R Dillard MD 12/14/2017 11:40 AM EDT
[2017-12-14] MEDS: MIDAZOLAM 50 MG/50 ML INJ 50 ML IV PRN (14:53)
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
[2017-12-14] MEDS: DEXTROSE 50% IN WATER 50 ML SYRINGE IV PUSH PRN ×2 (17:30→17:53)
[2017-12-14] MEDS: AMIODARONE INJ 450 MG in SODIUM CHLOR 0.9% (EXCEL) INJ 241 ML IV PRN (19:51)
[2017-12-14] MEDS ORDERED: ESMOLOL DRIP INJ PREMIX 250 ML IV PRN (20:30)
[2017-12-14] MEDS ORDERED: ESMOLOL HCL 100 MG/10 ML VIAL IV PUSH ONE (20:30)
[2017-12-14] MEDS: ATENOLOL 25 MG TAB PO SCH (21:59)
[2017-12-15] VITALS (15 sets, daily range): BP systolic 95–122; BP diastolic 52–59; PULSE 63–68; RESP 20–28; TEMP 98.6–100.1; O2SAT 89–98
[2017-12-15] MEDS: VASOPRESSIN 40 U/D5W 100 ML Titrate, Post Cardiac Surgery IV PRN ×4 (00:39→17:59)
[2017-12-15] MEDS: CHLORHEXIDINE GLUCONATE 2 % 1 PACK (2 CLOTHS) TOP SCH (03:08)
[2017-12-15] MEDS: RESP: ALBUTEROL 2.5 MG/IPRATROPIUM 0.5 MG NEB (SCH) NEB ×4 (03:17→19:50)
--- NOTE | 2017-12-15 03:55 | RADRPT ---
EXAM DATE: 12/15/2017 3:42 AM EDT AGE/SEX: 77 years / Female INDICATIONS: Shortness of breath CLINICAL DATA: This is the patient's subsequent encounter. Patient reports that signs and symptoms h ave been present for 4 - 6 days and indicates a pain score of Nonresponsive. MEDICAL/SURGICAL HISTORY: . Lupus. Chemotherapy None. COMPARISON: [facility] [place], CHEST SINGLE AP, 12/14/2017. . FINDINGS: A single AP view of the chest demonstrates bibasilar densities. Right-sided chest tube stable in posi tion. No pneumothorax. Endotracheal tube, nasogastric tube and right subclavian central line are stab le position.. The cardiomediastinal contours are unremarkable. Osseous structures are intact. CONCLUSION: Stable chest. No right-sided pneumothorax. Electronically signed by: Rodrigue Cobb MD 12/15/2017 3:54 AM EDT
[2017-12-15] MEDS: INSULIN ASPART SUPPLEMENTAL SCALE SQ SCH ×4 (06:00→23:49)
[2017-12-15 06:05] LABS: AUTOMATED NEUTROPHIL # 14.6 TH/MM3 (1.8-7.7); BASOPHIL % 0.2 % (0.0-2.0); EOSINOPHIL # 0.1 TH/MM3 (0-0.4); EOSINOPHIL % 0.5 % (0.0-4.0); HEMATOCRIT 27.4 % (35.0-46.0); HEMOGLOBIN 9.3 GM/DL (11.6-15.3); LYMPH % 4.8 % (9.0-44.0); LYMPHOCYTE # 0.8 TH/MM3 (1.0-4.8); MEAN CELL VOLUME 89.4 FL (80.0-100.0); MEAN CORPUSCULAR HEMOGLOBIN 30.2 PG (27.0-34.0); MEAN CORPUSCULAR HGB CONC 33.8 % (32.0-36.0); MEAN PLATELET VOLUME 9.5 FL (7.0-11.0); MONO % 4.2 % (0.0-8.0); MONOCYTE # 0.7 TH/MM3 (0-0.9); NEUT % 90.3 % (16.0-70.0); PLATELET COUNT 56 TH/MM3 (150-450); RED BLOOD COUNT 3.06 MIL/MM3 (4.00-5.30); RED CELL DISTRIBUTION WIDTH 14.5 % (11.6-17.2); WHITE BLOOD COUNT 16.1 TH/MM3 (4.0-11.0)
[2017-12-15 06:52] LABS: BICARBONATE 20.9 MEQ/L (21.0-32.0); CALCIUM 6.6 MG/DL (8.5-10.1); CALCIUM-PROTEIN CORRECTED 7.8 MG/DL (8.5-10.1); CREATININE 1.06 MG/DL (0.50-1.00); MAGNESIUM 2.3 MG/DL (1.5-2.5); TOTAL BILIRUBIN ADULT 1.7 MG/DL (0.2-1.0); TOTAL PROTEIN 4.7 GM/DL (6.4-8.2)
[2017-12-15] MEDS: CHLORHEXIDINE 0.12% (ORAL KIT) 15 ML CUP MT SCH ×2 (08:00→20:00)
[2017-12-15 08:16] LABS: BANDS 15 % (0-6); CORRECTED NUCLEATED RBC 5 /100 WBC (0-0); LYMPHOCYTES 8 % (9-44); METAMYELOCYTES 1 % (0-1); MONOCYTES 3 % (0-8); NEUTROPHIL # MANUAL DIFF 14.3 TH/MM3 (1.8-7.7); NUCLEATED RED BLOOD CELL 5 (0-0); POLYS (SEG NEUTROPHILS) 73 % (16-70)
[2017-12-15] MEDS: DIGOXIN 0.5 MG/2 ML VIAL IV PUSH SCH (08:46)
[2017-12-15] MEDS: AMIODARONE 200 MG TAB PO SCH ×2 (08:47→20:14)
[2017-12-15] MEDS: FAMOTIDINE 20 MG TAB PO SCH ×2 (08:47→20:14)
[2017-12-15] MEDS: ATENOLOL 25 MG TAB PO SCH (08:47)
[2017-12-15] MEDS: DOCUSATE SODIUM 50 MG/SENNA 8.6 MG TAB PO SCH ×2 (08:47→20:14)
[2017-12-15] MEDS: MAGNESIUM HYDROXIDE SUSP 30 ML CUP PO SCH ×2 (08:47→20:15)
[2017-12-15] MEDS ORDERED: FUROSEMIDE 20 MG/2 ML VIAL IV PUSH ONE (09:45)
[2017-12-15] MEDS ORDERED: POTASSIUM CHLORIDE 25 MEQ EFFERVESCENT TAB PO ONE (10:00)
--- NOTE | 2017-12-15 10:20 | PD.CARD.PN ---
Subjective Subjective Remarks Intubated. Sedated. Objective Medications Item Value Date Time Atenolol 12.5 mg 12/15/17 2100 (Tenormin) Q12HR/PO Amiodarone HCl 250 ml @ 33.33 mls/hr 12/14/17 1845 450 mg/Sodium TITRATE PRN/IV 12/14/171950 Chloride Vasopressin 40 100 ml @ 1.5 mls/hr 12/14/17 1200 units/Dextrose TITRATE PRN/IV 12/15/17 0039 Amiodarone HCl 200 mg 12/14/17 1000 (Cordarone) Q12HR/PO 12/15/17 0847 Digoxin 0.25 mg 12/14/17 0900 (Lanoxin Inj) DAILY/IV PUSH 12/15/17 0846 Current Medications Medications (Trade) Dose Ordered Sig/Karrie Route Start Time Stop Time Status Last Admin (NS Flush) 2 ml UNSCH PRN IVF 12/11/17 13:00 (Brethine Inj) 1 mg UNSCH PRN SQ 12/11/17 23:15 Potassium Chloride 100 ml @ 50 mls/hr Q2H PRN IV 12/12/17 09:45 Potassium Chloride 100 ml @ 50 mls/hr Q2H PRN IV 12/12/17 09:45 12/12/17 15:00 (K-Lyte Cl Eff) 50 meq UNSCH PRN PO 12/12/17 09:45 Potassium Chloride 100 ml @ 25 mls/hr UNSCH PRN IV 12/12/17 09:45 12/14/17 00:41 Potassium Chloride 100 ml @ 50 mls/hr Q2H PRN IV 12/12/17 09:45 Magnesium Sulfate 4 gm/Sodium Chloride 100 ml @ 50 mls/hr UNSCH PRN IV 12/12/17 09:45 (Mag-Ox) 800 mg UNSCH PRN PO 12/12/17 09:45 Magnesium Sulfate 2 gm/Sodium Chloride 100 ml @ 50 mls/hr UNSCH PRN IV 12/12/17 09:45 12/13/17 01:29 (K-Phos) 2,000 mg Q4H PRN PO 12/12/17 09:45 Sodium Phosphate 30 mmol/Sodium Chloride 250 ml @ 42 mls/hr UNSCH PRN IV 12/12/17 09:45 (K-Phos) 2,000 mg UNSCH PRN PO/TUBE 12/12/17 09:45 Potassium Phosphate 30 mmol/ Sodium Chloride 260 ml @ 42 mls/hr UNSCH PRN IV 12/12/17 09:45 (Pepcid) 10 mg BID PO 12/12/17 21:00 12/15/17 08:47 (Zandra-Colace) 1 tab BID PO 12/12/17 21:00 12/13/17 09:12 (Milk Of Magnesia Liq) 30 ml Q12HR PO 12/12/17 09:45 12/13/17 09:12 (Senokot) 17.2 mg Q12H PRN PO 12/12/17 09:45 (Dulcolax Supp) 10 mg DAILY PRN RECTAL 12/12/17 09:45 (Lactulose Liq) 30 ml DAILY PRN PO 12/12/17 09:45 (Peridex 0.12% Liq) 15 ml BID@08,20 MT 12/12/17 20:00 12/15/17 08:00 ([facility] [facility]) 1 Q361D XX 12/12/17 09:45 (Chlorhexidine 2% Cloth) 3 pack Taper DAILY@04 TOP 12/13/17 04:00 12/09/18 03:59 12/13/17 04:00 (Chlorhexidine 2% Cloth) 3 pack UNSCH PRN TOP 12/12/17 09:45 (NovoLOG SUPPLEMENTAL SCALE) 1 Q6HR SQ 12/12/17 12:00 12/14/17 23:35 (D50w (Syr) Inj) 50 ml UNSCH PRN IV PUSH 12/12/17 09:45 12/14/17 17:53 (Glucagon Inj) 1 mg UNSCH PRN OTHER 12/12/17 09:45 (Morphine Inj) 2 mg Q2H PRN IV PUSH 12/12/17 09:45 12/12/17 20:07 (Duoneb Neb) 1 ampule Q6HR NEB NEB 12/12/17 16:00 12/15/17 07:18 (Duoneb Neb) 1 ampule Q2HR NEB PRN NEB 12/12/17 11:30 Midazolam HCl 50 ml @ 2 mls/hr TITRATE PRN IV 12/12/17 13:00 12/14/17 14:53 (Lanoxin Inj) 0.25 mg DAILY IV PUSH 12/14/17 09:00 12/15/17 08:46 (Cordarone) 200 mg Q12HR PO 12/14/17 10:00 12/15/17 08:47 Vasopressin 40 units/Dextrose 100 ml @ 1.5 mls/hr TITRATE PRN IV 12/14/17 12:00 12/15/17 00:39 Amiodarone HCl 450 mg/Sodium Chloride 250 ml @ 33.33 mls/ hr TITRATE PRN IV 12/14/17 18:45 12/14/17 19:51 (Free Water) 200 ml Q6HR G-TUBE 12/15/17 12:00 (Tenormin) 12.5 mg Q12HR PO 12/15/17 21:00 Vital Signs / I&O Vital Signs Date Time Temp Pulse Resp B/P (MAP) Pulse Ox O2 Delivery O2 Flow Rate FiO2 12/15/17 08:00 99.0 67 24 122/59 (80) 95 12/15/17 08:00 45 12/15/17 07:18 89 40 12/15/17 06:00 65 12/15/17 04:02 93 40 12/15/17 04:00 40 12/15/17 04:00 67 12/15/17 04:00 98.6 67 28 113/56 (75) 95 12/15/17 02:00 64 12/15/17 01:05 93 40 12/15/17 00:39 67 112/57 12/15/17 00:00 98.6 68 22 110/55 (73) 93 12/15/17 00:00 67 12/15/17 00:00 40 12/14/17 22:00 89 124/58 12/14/17 22:00 85 12/14/17 20:00 98.2 90 28 118/56 (76) 98 Arterial Line 12/14/17 20:00 40 12/14/17 20:00 89 12/14/17 19:51 140 136/64 12/14/17 19:30 99 40 12/14/17 19:00 97 Mechanical Ventilator 40 12/14/17 18:00 110 12/14/17 16:00 40 12/14/17 16:00 97.9 120 26 130/67 (88) 98 12/14/17 16:00 120 12/14/17 15:29 96 40 12/14/17 14:00 123 12/14/17 12:18 131 121/71 12/14/17 12:00 130 12/14/17 12:00 40 12/14/17 12:00 97.5 118 13 126/59 (81) 96 12/14/17 11:19 130 77/50 I/O 12/14/17 12/14/17 12/14/17 12/15/17 12/15/17 12/15/17 07:00 15:00 23:00 07:00 15:00 23:00 Intake Total 240 ml 950 ml 1413 ml 505 ml 621 ml Output Total 2070 ml 2080.0 ml 1080 ml 0 ml Balance -1830 ml 950 ml -667.0 ml -575 ml 621 ml Intake IV Total 240 ml 950 ml 1350 ml 621 ml Tube Feeding 63 ml 505 ml Output Urine Total 2000 ml 2050 ml 1000 ml Gastric Drainage Total 50 ml 0 ml 0 ml Tube Feeding Residual Discard 0 ml 0 ml 0 ml Chest Tube Drainage Total 20 ml 30 ml 80 ml # Bowel Movements 3 2 1 Physical Exam GENERAL: Well developed, well nourished. Intubated. Sedated. HEENT: Jugular venous pressure is normal. CHEST: Lungs clear to auscultation anteriorly. CARDIAC: Regular rate and rhythm without S3, S4, or murmur. ABDOMEN: Soft, aggressive palpation not done. EXTREMITIES: No clubbing, cyanosis, or edema. Laboratory Laboratory Tests Test 12/15/17 04:21 12/15/17 05:35 Blood Gas Puncture Site RT RADIAL Blood Gas Patient Temperature 98.6 Blood Gas HCO3 19 mmol/L Blood Gas Base Excess -3.4 mmol/L Blood Gas Oxygen Saturation 93 % Arterial Blood pH 7.49 Arterial Blood Partial Pressure CO2 26 mmHg Arterial Blood Partial Pressure O2 75 mmHg Arterial Blood Oxygen Content 12.6 Vol % Arterial Blood Carboxyhemoglobin 1.3 % Arterial Blood Methemoglobin 1.3 % Blood Gas Hemoglobin 9.6 G/DL Oxygen Delivery Device VENTILATOR Blood Gas Ventilator Setting PRVC/AC Blood Gas Inspired Oxygen 40 % White Blood Count 16.1 TH/MM3 Red Blood Count 3.06 MIL/MM3 Hemoglobin 9.3 GM/DL Hematocrit 27.4 % Mean Corpuscular Volume 89.4 FL Mean Corpuscular Hemoglobin 30.2 PG Mean Corpuscular Hemoglobin Concent 33.8 % Red Cell Distribution Width 14.5 % Platelet Count 56 TH/MM3 Mean Platelet Volume 9.5 FL Neutrophils (%) (Auto) 90.3 % Lymphocytes (%) (Auto) 4.8 % Monocytes (%) (Auto) 4.2 % Eosinophils (%) (Auto) 0.5 % Basophils (%) (Auto) 0.2 % Neutrophils # (Auto) 14.6 TH/MM3 Lymphocytes # (Auto) 0.8 TH/MM3 Monocytes # (Auto) 0.7 TH/MM3 Eosinophils # (Auto) 0.1 TH/MM3 Basophils # (Auto) 0.0 TH/MM3 CBC Comment AUTO DIFF Differential Total Cells Counted 100 Neutrophils % (Manual) 73 % Band Neutrophils % 15 % Lymphocytes % 8 % Monocytes % 3 % Neutrophils # (Manual) 14.3 TH/MM3 Metamyelocytes 1 % Nucleated Red Blood Cells 5 /100 WBC Differential Comment FINAL DIFF MANUAL Platelet Estimate LOW Platelet Morphology Comment NORMAL Blood Urea Nitrogen 27 MG/DL Creatinine 1.06 MG/DL Random Glucose 118 MG/DL Total Protein 4.7 GM/DL Albumin 2.0 GM/DL Calcium Level 6.6 MG/DL Magnesium Level 2.3 MG/DL Alkaline Phosphatase 113 U/L Aspartate Amino Transf (AST/SGOT) 895 U/L Alanine Aminotransferase (ALT/SGPT) 1649 U/L Total Bilirubin 1.7 MG/DL Sodium Level 156 MEQ/L Potassium Level 3.6 MEQ/L Chloride Level 125 MEQ/L Carbon Dioxide Level 20.9 MEQ/L Anion Gap 10 MEQ/L Estimat Glomerular Filtration Rate 50 ML/MIN Protein Corrected Calcium 7.8 MG/DL Digoxin Level 1.7 NG/ML Imaging Last 24 hours Impressions Chest X-Ray 12/15/17 0600 Signed Impressions: CONCLUSION: Stable chest. No right-sided pneumothorax. Assessment and Plan Problem List: (1) Atrial fibrillation with RVR ICD Codes: I48.91 - Unspecified atrial fibrillation Status: Acute Plan: Stable overnight. Remains in NSR on IV Amiodarone, IV digoxin, oral atenolol. Recommend no changes for now. Observe for bradyarrhythmias. Code Status alternative code Discussed Condition With family member at bedside Edmundo Clark MD Dec 15, 2017 10:20
[2017-12-15] MEDS: AMIODARONE INJ 450 MG in SODIUM CHLOR 0.9% (EXCEL) INJ 241 ML IV PRN (10:48)
[2017-12-15] MEDS: FREE WATER G-TUBE SCH ×3 (12:00→23:49)
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
--- NOTE | 2017-12-15 13:11 | HHI.NSPN ---
History Chief Complaint: Unable to obtain due to patient's clinical condition. Interval History Patient remains intubated. Examination is performed off sedation this morning. Patient's family at bedside. She is not responding well to them. Remains on amiodarone for A. fib with RVR. Exam Results Vital Signs Date Time Temp Pulse Resp B/P (MAP) Pulse Ox O2 Delivery O2 Flow Rate FiO2 12/15/17 12:26 97 45 12/15/17 12:00 99.0 64 23 107/54 (71) 12/14/17 19:00 Mechanical Ventilator 12/11/17 18:00 40.00 Intake and Output 12/15/17 12/15/17 12/16/17 08:00 16:00 00:00 Intake Total 505 ml 871 ml Output Total 1080.0 ml 0 ml Balance -575.0 ml 871 ml Physical Examination Patient is intubated. Off sedation for examination. Cervical collar in place She is at bedrest, on her back with head of bed slightly elevated with flexion at the hips. Minimal left eye opening to voice and sternal rub. Pupils are 3 mm minimally reactive. She does not focus or follow with her eyes. No attempt to verbalize. Not following commands. Mild grimacing to deep pain in the upper extremities but no upper extremity movement. No response to deep pain lower extremities. Craig's response absent bilateral Plantar responses are mildly extensor Lab, Micro, Other Results Laboratory Tests Test 12/15/17 04:21 12/15/17 05:35 Blood Gas Puncture Site RT RADIAL Blood Gas Patient Temperature 98.6 Blood Gas HCO3 19 mmol/L Blood Gas Base Excess -3.4 mmol/L Blood Gas Oxygen Saturation 93 % Arterial Blood pH 7.49 Arterial Blood Partial Pressure CO2 26 mmHg Arterial Blood Partial Pressure O2 75 mmHg Arterial Blood Oxygen Content 12.6 Vol % Arterial Blood Carboxyhemoglobin 1.3 % Arterial Blood Methemoglobin 1.3 % Blood Gas Hemoglobin 9.6 G/DL Oxygen Delivery Device VENTILATOR Blood Gas Ventilator Setting PRVC/AC Blood Gas Inspired Oxygen 40 % White Blood Count 16.1 TH/MM3 Red Blood Count 3.06 MIL/MM3 Hemoglobin 9.3 GM/DL Hematocrit 27.4 % Mean Corpuscular Volume 89.4 FL Mean Corpuscular Hemoglobin 30.2 PG Mean Corpuscular Hemoglobin Concent 33.8 % Red Cell Distribution Width 14.5 % Platelet Count 56 TH/MM3 Mean Platelet Volume 9.5 FL Neutrophils (%) (Auto) 90.3 % Lymphocytes (%) (Auto) 4.8 % Monocytes (%) (Auto) 4.2 % Eosinophils (%) (Auto) 0.5 % Basophils (%) (Auto) 0.2 % Neutrophils # (Auto) 14.6 TH/MM3 Lymphocytes # (Auto) 0.8 TH/MM3 Monocytes # (Auto) 0.7 TH/MM3 Eosinophils # (Auto) 0.1 TH/MM3 Basophils # (Auto) 0.0 TH/MM3 CBC Comment AUTO DIFF Differential Total Cells Counted 100 Neutrophils % (Manual) 73 % Band Neutrophils % 15 % Lymphocytes % 8 % Monocytes % 3 % Neutrophils # (Manual) 14.3 TH/MM3 Metamyelocytes 1 % Nucleated Red Blood Cells 5 /100 WBC Differential Comment FINAL DIFF MANUAL Platelet Estimate LOW Platelet Morphology Comment NORMAL Blood Urea Nitrogen 27 MG/DL Creatinine 1.06 MG/DL Random Glucose 118 MG/DL Total Protein 4.7 GM/DL Albumin 2.0 GM/DL Calcium Level 6.6 MG/DL Magnesium Level 2.3 MG/DL Alkaline Phosphatase 113 U/L Aspartate Amino Transf (AST/SGOT) 895 U/L Alanine Aminotransferase (ALT/SGPT) 1649 U/L Total Bilirubin 1.7 MG/DL Sodium Level 156 MEQ/L Potassium Level 3.6 MEQ/L Chloride Level 125 MEQ/L Carbon Dioxide Level 20.9 MEQ/L Anion Gap 10 MEQ/L Estimat Glomerular Filtration Rate 50 ML/MIN Protein Corrected Calcium 7.8 MG/DL Digoxin Level 1.7 NG/ML Medical Decision Making Impression and Plan Impression: 1. Comminuted type III C2 fracture with mild retropulsion without significant canal compromise. This extends into the lateral mass. 2. Left C6 inferior articular facet fracture 3. CT scan thoracic spine reveals acute mildly to moderately displaced oblique fracture through the T6 and T7 vertebral bodies with approximately 7 mm retropulsion of these superior versus inferior T7 vertebral body with mild to moderate canal compromise. 4. Acute T11 inferior vertebral fracture without retropulsion. Previous T12 kyphoplasty. 5. Possible encephalopathy Plan: Findings were discussed with the family at bedside. 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 There is also concern for thoracic and possibly cervical myelopathy based on her minimal extremity responses noted on examination off sedation today. She is still not clinically stable to proceed with any surgical intervention. We will proceed with follow-up CT scan of the head, cervical spine, and thoracic spine. I have advised the family that there is a possibility of myelopathy or cord injury related to the cervical and thoracic spine fractures. Unfortunately she has not been medically stable enough to proceed with surgical intervention for decompression and stabilization. Andry Vee MD Dec 15, 2017 13:11
[2017-12-15] MEDS ORDERED: ATENOLOL 25 MG TAB PO SCH (21:00)
--- NOTE | 2017-12-15 21:57 | RADRPT ---
EXAM DATE: 12/15/2017 9:52 PM EDT AGE/SEX: 77 years / Female INDICATIONS: Altered mental status; patient not waking up post op. CLINICAL DATA: This is the patient's initial encounter. Patient reports that signs and symptoms have been present for 1 day and indicates a pain score of Nonresponsive. MEDICAL/SURGICAL HISTORY: Carcinoma, uterine. Hysterectomy. RADIATION DOSE: 31.99 CTDI (mGy) COMPARISON: [facility] – [place], CT BRAIN W/O CONTRAST, 12/12/2017. . TECHNIQUE: CT of the head without contrast. Using automated exposure control and adjustment of the mA and/or kV according to patient size, radiation dose was kept as low as reasonably achievable to ob tain optimal diagnostic quality images. FINDINGS: Cerebrum: The ventricles are normal for age. No evidence of midline shift, mass lesion, hemorrhage or acute infarction. No extraaxial fluid collections are seen. Posterior Fossa: The cerebellum and brainstem are intact. The 4th ventricle is midline. The cerebe llopontine angle is unremarkable. Extracranial: The visualized portion of the orbits is intact. Skull: The calvaria is intact. No evidence of skull fracture. CONCLUSION: 1. No acute intracranial abnormalities. Opacified left sphenoid sinus. Electronically signed by: Addison Carmen MD 12/15/2017 9:56 PM EDT
--- NOTE | 2017-12-15 22:03 | RADRPT ---
EXAM DATE: 12/15/2017 9:57 PM EDT AGE/SEX: 77 years / Female INDICATIONS: Follow up fracture. CLINICAL DATA: This is the patient's subsequent encounter. Patient reports that signs and symptoms h ave been present for 2 days and indicates a pain score of Nonresponsive. MEDICAL/SURGICAL HISTORY: Carcinoma, uterine. Hysterectomy. RADIATION DOSE: 21.70 CTDI (mGy) COMPARISON: [facility] – [place], CT CERVICAL SPINE W/O CONTRAST, 12/11/2017. . TECHNIQUE: Contiguous axial images were obtained using helical multirow detector technique. The vol umetric data was post-processed with multiplanar reconstruction in oblique axial, sagittal, and coron al planes. Using automated exposure control and adjustment of the mA and/or kV according to patient s ize, radiation dose was kept as low as reasonably achievable to obtain optimal diagnostic quality rita ges. FINDINGS: Comparison is December 11. There is a comminuted fracture of C2 which is unchanged in appearance since . Nondisplaced fracture left C6 facet is stable. No new fracture. No significant bony canal sten osis. CONCLUSION: 1. C2 fracture and left C6 facet fracture stable in appearance since December 11. Electronically signed by: Addison Carmen MD 12/15/2017 10:02 PM EDT
--- NOTE | 2017-12-15 22:10 | RADRPT ---
EXAM DATE: 12/15/2017 10:00 PM EDT AGE/SEX: 77 years / Female INDICATIONS: Follow up fracture. CLINICAL DATA: This is the patient's subsequent encounter. Patient reports that signs and symptoms h ave been present for 2 days and indicates a pain score of Nonresponsive. MEDICAL/SURGICAL HISTORY: Carcinoma, uterine. Hysterectomy. RADIATION DOSE: 35.86 CTDI (mGy) COMPARISON: [facility] [place], CT THORACIC SPINE W CONTRAST, 12/11/2017. . TECHNIQUE: Contiguous axial images were acquired using a multirow detector CT scanner without contra st. Multiplanar reconstruction in the sagittal and coronal planes was performed. Using automated exp osure control and adjustment of the mA and/or kV according to patient size, radiation dose was kept a s low as reasonably achievable to obtain optimal diagnostic quality images. FINDINGS: There is again noted a fracture through T6 and T7 obliquely with mild displacement. Finding is simila r to December 11 exam. T11 vertebral body fractures also stable. Bilateral lower rib fractures are again noted. Basilar lung consolidation has increased and left pleural effusion has increased. Stable kypho plasty at T12. CONCLUSION: 1. Stable CT appearance of fractures of T6, T7 and T12 with mild displacement compared with December 11. Electronically signed by: Addison Carmen MD 12/15/2017 10:09 PM EDT
[2017-12-15] MEDS: DEXTROSE 50% IN WATER 50 ML SYRINGE IV PUSH PRN (23:33)
[2017-12-16] VITALS (16 sets, daily range): BP systolic 90–174; BP diastolic 53–73; PULSE 68–72; RESP 21–31; TEMP 98.4–100.4; O2SAT 93–100
[2017-12-16] MEDS: AMIODARONE INJ 450 MG in SODIUM CHLOR 0.9% (EXCEL) INJ 241 ML IV PRN ×2 (02:18→13:48)
[2017-12-16] MEDS: RESP: ALBUTEROL 2.5 MG/IPRATROPIUM 0.5 MG NEB (SCH) NEB ×3 (03:31→15:47)
[2017-12-16] MEDS: CHLORHEXIDINE GLUCONATE 2 % 1 PACK (2 CLOTHS) TOP SCH (03:44)
[2017-12-16 05:17] LABS: AUTOMATED NEUTROPHIL # 10.9 TH/MM3 (1.8-7.7); BASOPHIL % 0.2 % (0.0-2.0); EOSINOPHIL % 0.3 % (0.0-4.0); HEMATOCRIT 25.9 % (35.0-46.0); HEMOGLOBIN 8.6 GM/DL (11.6-15.3); LYMPH % 4.9 % (9.0-44.0); LYMPHOCYTE # 0.6 TH/MM3 (1.0-4.8); MEAN CORPUSCULAR HEMOGLOBIN 29.9 PG (27.0-34.0); MEAN CORPUSCULAR HGB CONC 33.3 % (32.0-36.0); MEAN PLATELET VOLUME 10.5 FL (7.0-11.0); MONOCYTE # 0.5 TH/MM3 (0-0.9); NEUT % 90.6 % (16.0-70.0); PLATELET COUNT 62 TH/MM3 (150-450); RED BLOOD COUNT 2.88 MIL/MM3 (4.00-5.30); RED CELL DISTRIBUTION WIDTH 14.9 % (11.6-17.2); WHITE BLOOD COUNT 12.1 TH/MM3 (4.0-11.0)
--- NOTE | 2017-12-16 05:37 | RADRPT ---
EXAM DATE: 12/16/2017 5:27 AM EDT AGE/SEX: 77 years / Female INDICATIONS: Short of breath. CLINICAL DATA: This is the patient's subsequent encounter. Patient reports that signs and symptoms h ave been present for 4 - 6 days and indicates a pain score of Nonresponsive. MEDICAL/SURGICAL HISTORY: . Lupus. Chemotherapy. None. COMPARISON: [facility] – [place], CHEST SINGLE AP, 12/15/2017. . FINDINGS: A single AP view of the chest demonstrates left basilar density. Right-sided chest tube without pneum othorax. Nasogastric tube and endotracheal tube unchanged. Cardiomegaly. Osseous structures are intac t. CONCLUSION: Right-sided chest tube without definite pneumothorax. Left basilar density. Electronically signed by: Rodrigue Cobb MD 12/16/2017 5:35 AM EDT
[2017-12-16 05:47] LABS: ALBUMIN 1.9 GM/DL (3.4-5.0); ALKALINE PHOSPHATASE 114 U/L (45-117); ALT (GPT) 1247 U/L (10-53); AST (GOT) 525 U/L (15-37); BICARBONATE 19.6 MEQ/L (21.0-32.0); BLOOD UREA NITROGEN 28 MG/DL (7-18); CHLORIDE 128 MEQ/L (98-107); CREATININE 1.06 MG/DL (0.50-1.00); GLOMERULAR FILTRATION RATE 50 ML/MIN (>89); GLUCOSE,RANDOM 92 MG/DL (74-106); MAGNESIUM 2.4 MG/DL (1.5-2.5); TOTAL BILIRUBIN ADULT 1.9 MG/DL (0.2-1.0); TOTAL PROTEIN 4.9 GM/DL (6.4-8.2)
[2017-12-16 05:51] LABS: SODIUM (NA) 157 MEQ/L (136-145)
[2017-12-16] MEDS: INSULIN ASPART SUPPLEMENTAL SCALE SQ SCH ×3 (05:54→17:51)
[2017-12-16] MEDS: FREE WATER G-TUBE SCH ×3 (05:55→17:51)
[2017-12-16 06:19] LABS: BANDS 13 % (0-6); CORRECTED NUCLEATED RBC 40 /100 WBC (0-0); LYMPHOCYTES 9 % (9-44); METAMYELOCYTES 1 % (0-1); MONOCYTES 3 % (0-8); MYELOCYTES 1 % (0-0); NEUTROPHIL # MANUAL DIFF 10.6 TH/MM3 (1.8-7.7); NUCLEATED RED BLOOD CELL 40 (0-0); POLYS (SEG NEUTROPHILS) 73 % (16-70)
[2017-12-16] MEDS: CHLORHEXIDINE 0.12% (ORAL KIT) 15 ML CUP MT SCH ×2 (08:00→20:20)
[2017-12-16] MEDS: MAGNESIUM HYDROXIDE SUSP 30 ML CUP PO SCH ×2 (08:51→20:19)
[2017-12-16] MEDS: AMIODARONE 200 MG TAB PO SCH ×2 (08:51→20:19)
[2017-12-16] MEDS: DOCUSATE SODIUM 50 MG/SENNA 8.6 MG TAB PO SCH ×2 (08:51→20:19)
[2017-12-16] MEDS: FAMOTIDINE 20 MG TAB PO SCH ×2 (08:51→20:19)
[2017-12-16] MEDS: DIGOXIN 0.5 MG/2 ML VIAL IV PUSH SCH (08:51)
[2017-12-16] MEDS ORDERED: ATENOLOL 50 MG TAB PO SCH (09:00)
[2017-12-16] MEDS ORDERED: PILL SPLITTER OTHER PRN (09:00)
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
--- NOTE | 2017-12-16 10:16 | PD.CARD.PN ---
Subjective Subjective Remarks Intubated. Sedated. Objective Medications Item Value Date Time Atenolol 12.5 mg 12/16/17 0900 (Tenormin) Q12HR/PO 12/16/17 0902 Amiodarone HCl 250 ml @ 33.33 mls/hr 12/14/17 1845 450 mg/Sodium TITRATE PRN/IV 12/16/17 0218 Chloride Amiodarone HCl 200 mg 12/14/17 1000 (Cordarone) Q12HR/PO 12/16/17 0851 Digoxin 0.25 mg 12/14/17 0900 (Lanoxin Inj) DAILY/IV PUSH 12/16/17 0851 Current Medications Medications (Trade) Dose Ordered Sig/Karrie Route Start Time Stop Time Status Last Admin (NS Flush) 2 ml UNSCH PRN IVF 12/11/17 13:00 (Brethine Inj) 1 mg UNSCH PRN SQ 12/11/17 23:15 Potassium Chloride 100 ml @ 50 mls/hr Q2H PRN IV 12/12/17 09:45 Potassium Chloride 100 ml @ 50 mls/hr Q2H PRN IV 12/12/17 09:45 12/12/17 15:00 (K-Lyte Cl Eff) 50 meq UNSCH PRN PO 12/12/17 09:45 Potassium Chloride 100 ml @ 25 mls/hr UNSCH PRN IV 12/12/17 09:45 12/14/17 00:41 Potassium Chloride 100 ml @ 50 mls/hr Q2H PRN IV 12/12/17 09:45 Magnesium Sulfate 4 gm/Sodium Chloride 100 ml @ 50 mls/hr UNSCH PRN IV 12/12/17 09:45 (Mag-Ox) 800 mg UNSCH PRN PO 12/12/17 09:45 Magnesium Sulfate 2 gm/Sodium Chloride 100 ml @ 50 mls/hr UNSCH PRN IV 12/12/17 09:45 12/13/17 01:29 (K-Phos) 2,000 mg Q4H PRN PO 12/12/17 09:45 Sodium Phosphate 30 mmol/Sodium Chloride 250 ml @ 42 mls/hr UNSCH PRN IV 12/12/17 09:45 (K-Phos) 2,000 mg UNSCH PRN PO/TUBE 12/12/17 09:45 Potassium Phosphate 30 mmol/ Sodium Chloride 260 ml @ 42 mls/hr UNSCH PRN IV 12/12/17 09:45 (Pepcid) 10 mg BID PO 12/12/17 21:00 12/16/17 08:51 (Zandra-Colace) 1 tab BID PO 12/12/17 21:00 12/13/17 09:12 (Milk Of Magnesia Liq) 30 ml Q12HR PO 12/12/17 09:45 12/13/17 09:12 (Senokot) 17.2 mg Q12H PRN PO 12/12/17 09:45 (Dulcolax Supp) 10 mg DAILY PRN RECTAL 12/12/17 09:45 (Lactulose Liq) 30 ml DAILY PRN PO 12/12/17 09:45 (Peridex 0.12% Liq) 15 ml BID@08,20 MT 12/12/17 20:00 12/16/17 08:00 ([facility] [place] Nursing Information) 1 Q361D XX 12/12/17 09:45 (Chlorhexidine 2% Cloth) 3 pack Taper DAILY@04 TOP 12/13/17 04:00 12/09/18 03:59 12/13/17 04:00 (Chlorhexidine 2% Cloth) 3 pack UNSCH PRN TOP 12/12/17 09:45 (NovoLOG SUPPLEMENTAL SCALE) 1 Q6HR SQ 12/12/17 12:00 12/14/17 23:35 (D50w (Syr) Inj) 50 ml UNSCH PRN IV PUSH 12/12/17 09:45 12/15/17 23:33 (Glucagon Inj) 1 mg UNSCH PRN OTHER 12/12/17 09:45 (Morphine Inj) 2 mg Q2H PRN IV PUSH 12/12/17 09:45 12/12/17 20:07 (Duoneb Neb) 1 ampule Q6HR NEB NEB 12/12/17 16:00 12/16/17 07:20 (Duoneb Neb) 1 ampule Q2HR NEB PRN NEB 12/12/17 11:30 Midazolam HCl 50 ml @ 2 mls/hr TITRATE PRN IV 12/12/17 13:00 12/14/17 14:53 (Lanoxin Inj) 0.25 mg DAILY IV PUSH 12/14/17 09:00 12/16/17 08:51 (Cordarone) 200 mg Q12HR PO 12/14/17 10:00 12/16/17 08:51 Vasopressin 40 units/Dextrose 100 ml @ 1.5 mls/hr TITRATE PRN IV 12/14/17 12:00 12/15/17 17:59 Amiodarone HCl 450 mg/Sodium Chloride 250 ml @ 33.33 mls/ hr TITRATE PRN IV 12/14/17 18:45 12/16/17 02:18 (Free Water) 200 ml Q6HR G-TUBE 12/15/17 12:00 12/16/17 05:55 (Tenormin) 12.5 mg Q12HR PO 12/16/17 09:00 12/16/17 09:02 (Pill Splitter) 1 ea UNSCH PRN OTHER 12/16/17 09:00 Vital Signs / I&O Vital Signs Date Time Temp Pulse Resp B/P (MAP) Pulse Ox O2 Delivery O2 Flow Rate FiO2 12/16/17 09:20 72 114/54 12/16/17 08:00 45 12/16/17 08:00 100.4 72 31 101/58 (72) 95 12/16/17 08:00 72 12/16/17 07:20 97 40 12/16/17 06:00 69 12/16/17 04:00 40 12/16/17 04:00 68 12/16/17 04:00 100.4 68 21 119/58 (78) 97 12/16/17 03:31 97 40 12/16/17 02:18 67 107/55 12/16/17 02:00 68 12/16/17 00:03 94 40 12/16/17 00:00 69 12/16/17 00:00 40 12/16/17 00:00 100.2 72 28 174/73 (106) 97 12/15/17 22:00 67 12/15/17 20:00 40 12/15/17 20:00 67 12/15/17 20:00 100.1 66 20 113/56 (75) 97 12/15/17 19:50 98 40 12/15/17 19:00 97 Mechanical Ventilator 40 12/15/17 17:59 65 135/61 12/15/17 16:00 63 12/15/17 16:00 99.1 63 24 95/52 (66) 96 6/16/18 16:00 40 12/15/17 15:23 97 45 12/15/17 12:26 97 45 12/15/17 12:00 99.0 64 23 107/54 (71) 12/15/17 12:00 64 12/15/17 10:48 66 124/61 I/O 12/15/17 12/15/17 12/15/17 12/16/17 12/16/17 12/16/17 07:00 15:00 23:00 07:00 15:00 23:00 Intake Total 505 ml 871 ml 1158 ml 1145 ml Output Total 1080 ml 0 ml 2305.0 ml 1640 ml 0 ml Balance -575 ml 871 ml -1147.0 ml -495 ml 0 ml Intake IV Total 871 ml 250 ml Tube Feeding 505 ml 538 ml 495 ml Other 620 ml 400 ml Output Urine Total 1000 ml 2225 ml 1530 ml Gastric Drainage Total 0 ml 0 ml Tube Feeding Residual Discard 0 ml 0 ml 0 ml 0 ml 0 ml Chest Tube Drainage Total 80 ml 80 ml 110 ml # Bowel Movements 1 2 2 Physical Exam GENERAL: Well developed, well nourished. Intubated. Sedated. HEENT: Jugular venous pressure is normal. CHEST: Lungs clear to auscultation anteriorly. CARDIAC: Regular rate and rhythm without S3, S4, or murmur. ABDOMEN: Soft, aggressive palpation not done. EXTREMITIES: SCD's in place. Laboratory Laboratory Tests Test 12/16/17 04:50 12/16/17 05:06 White Blood Count 12.1 TH/MM3 Red Blood Count 2.88 MIL/MM3 Hemoglobin 8.6 GM/DL Hematocrit 25.9 % Mean Corpuscular Volume 90.0 FL Mean Corpuscular Hemoglobin 29.9 PG Mean Corpuscular Hemoglobin Concent 33.3 % Red Cell Distribution Width 14.9 % Platelet Count 62 TH/MM3 Mean Platelet Volume 10.5 FL Neutrophils (%) (Auto) 90.6 % Lymphocytes (%) (Auto) 4.9 % Monocytes (%) (Auto) 4.0 % Eosinophils (%) (Auto) 0.3 % Basophils (%) (Auto) 0.2 % Neutrophils # (Auto) 10.9 TH/MM3 Lymphocytes # (Auto) 0.6 TH/MM3 Monocytes # (Auto) 0.5 TH/MM3 Eosinophils # (Auto) 0.0 TH/MM3 Basophils # (Auto) 0.0 TH/MM3 CBC Comment AUTO DIFF Differential Total Cells Counted 100 Neutrophils % (Manual) 73 % Band Neutrophils % 13 % Lymphocytes % 9 % Monocytes % 3 % Neutrophils # (Manual) 10.6 TH/MM3 Metamyelocytes 1 % Myelocytes 1 % Nucleated Red Blood Cells 40 /100 WBC Differential Comment FINAL DIFF MANUAL Platelet Estimate LOW Platelet Morphology Comment ENLARGED Blood Urea Nitrogen 28 MG/DL Creatinine 1.06 MG/DL Random Glucose 92 MG/DL Total Protein 4.9 GM/DL Albumin 1.9 GM/DL Calcium Level 8.0 MG/DL Magnesium Level 2.4 MG/DL Alkaline Phosphatase 114 U/L Aspartate Amino Transf (AST/SGOT) 525 U/L Alanine Aminotransferase (ALT/SGPT) 1247 U/L Total Bilirubin 1.9 MG/DL Sodium Level 157 MEQ/L Potassium Level 4.2 MEQ/L Chloride Level 128 MEQ/L Carbon Dioxide Level 19.6 MEQ/L Anion Gap 9 MEQ/L Estimat Glomerular Filtration Rate 50 ML/MIN Blood Gas Puncture Site LT RADIAL Blood Gas Patient Temperature 98.6 Blood Gas HCO3 18 mmol/L Blood Gas Base Excess -5.2 mmol/L Blood Gas Oxygen Saturation 93 % Arterial Blood pH 7.47 Arterial Blood Partial Pressure CO2 25 mmHg Arterial Blood Partial Pressure O2 71 mmHg Arterial Blood Oxygen Content 15.1 Vol % Arterial Blood Carboxyhemoglobin 1.7 % Arterial Blood Methemoglobin 1.0 % Blood Gas Hemoglobin 11.5 G/DL Oxygen Delivery Device VENTILATOR Blood Gas Ventilator Setting SEE COMMENT Blood Gas Inspired Oxygen 40 % Imaging Last 24 hours Impressions Chest X-Ray 12/16/17 0600 Signed Impressions: CONCLUSION: Right-sided chest tube without definite pneumothorax. Left basilar density. Assessment and Plan Problem List: (1) Atrial fibrillation with RVR ICD Codes: I48.91 - Unspecified atrial fibrillation Status: Acute Plan: Stable overnight. Remains in NSR on IV/oral Amiodarone, IV digoxin, oral atenolol. Recommend no changes for now except decrease digoxin dosing. Code Status alternative code Edmundo Clark MD Dec 16, 2017 10:16
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
[2017-12-16] MEDS: VASOPRESSIN 40 U/D5W 100 ML Titrate, Post Cardiac Surgery IV PRN ×2 (12:29)
--- NOTE | 2017-12-16 15:50 | RADRPT ---
EXAM DATE: 12/16/2017 3:33 PM EDT AGE/SEX: 77 years / Female INDICATIONS: Altered mental status. Trauma. CLINICAL DATA: This is the patient's subsequent encounter. Patient reports that signs and symptoms h ave been present for 4 - 6 days and indicates a pain score of 0/10. MEDICAL/SURGICAL HISTORY: None. Fusion, thoracic. Hip and shoulder replacement. COMPARISON: [facility] [place]/O [place], 12/15/2017. . TECHNIQUE: Multiplanar, multisequence examination of the brain was performed without contrast. FINDINGS: Cerebrum: The ventricles are normal for age. No evidence of midline shift, mass lesion, hemorrhage or acute infarction. No extraaxial fluid collections are seen. The pituitary gland and suprasellar cistern are normal in configuration. White Matter: No significant signal abnormalities are seen in the white matter. Posterior Fossa: Normal morphology to the cerebellum and brainstem. On the diffusion-weighted images, there are 3 small focal areas of restricted diffusion without T2 shine through involving the lateral right cerebellar hemisphere. No evidence of blood products on susceptibility-weighted images. No mazin dence of cerebral data.. The 4th ventricle is midline. The cerebellopontine angle is unremarkable. The cerebellar tonsils are normal in position. Extracranial: Opacified left sphenoid sinus. CONCLUSION: 1. There are 3 tiny areas of restricted diffusion involving the right cerebellar hemisphere without associated blood products. All 3 of these areas measure less than 2 mm in size Tiny infarcts is suspe cted. 2. No acute findings in the supratentorial brain. Ischemic atrophy of the supratentorial brain. 3. Left sphenoid sinus disease. Electronically signed by: Rocky Mcgee MD 12/16/2017 3:49 PM EDT
[2017-12-16] MEDS ORDERED: Vancomycin Consult Pharmacy 1 EA OTHER SCH (16:00)
--- NOTE | 2017-12-16 16:13 | RADRPT ---
EXAM DATE: 12/16/2017 3:10 PM EDT AGE/SEX: 77 years / Female INDICATIONS: Trauma. CLINICAL DATA: This is the patient's initial encounter. Patient reports that signs and symptoms have been present for 4 - 6 days and indicates a pain score of 0/10. MEDICAL/SURGICAL HISTORY: Non-responsive. Fusion, thoracic. Hip and shoulder replacement. COMPARISON: No prior exams available for comparison. TECHNIQUE: Multiplanar, multisequence MRI examination of the cervical spine was performed without co ntrast. FINDINGS: There is a minimally displaced comminuted fracture of the body of C2. There is no significant retropu lsion or canal stenosis at this level. There is prevertebral soft tissue swelling and edema. There is minimal focal edema at the left C6 facet fracture seen on CT. There is no significant overall canal stenosis within the cervical spine. There is mild degenerative disc disease but without significant disc protrusion. No cord impingement or cord edema. CONCLUSION: 1. When comparison is made with recent CT there is no significant change in C2 body fracture and lef t C6 facet fracture. There is no canal stenosis, cord impingement or cord signal abnormality to sugge st cord contusion or edema. Remainder of the cervical spine is within normal alignment. Electronically signed by: Addison Carmen MD 12/16/2017 4:12 PM EDT
--- NOTE | 2017-12-16 16:21 | RADRPT ---
EXAM DATE: 12/16/2017 3:05 PM EDT AGE/SEX: 77 years / Female INDICATIONS: Trauma. CLINICAL DATA: This is the patient's initial encounter. Patient reports that signs and symptoms have been present for 4 - 6 days and indicates a pain score of 0/10. MEDICAL/SURGICAL HISTORY: None. Fusion, thoracic. Hip and shoulder replacement. COMPARISON: No prior exams available for comparison. TECHNIQUE: Multiplanar, multisequence MRI of the thoracic spine was performed. FINDINGS: Overall, there is mild cord compression at 3 separate levels in the thoracic spine. MRI confirms obliquely oriented fractures through T6 and the posterosuperior corner of T7 with mild d isplacement posteriorly. This displacement posteriorly results in a moderate canal stenosis at T6-7 w ith mild cord compression. At T7-8 there is a focal central disc protrusion which could be traumatic also resulting in moderate canal stenosis and mild cord compression. There is a fracture through the T11 vertebral body which is acute and T12 vertebral body which is old with kyphoplasty. At T11-12 retropulsion results in a focal moderate canal stenosis and mild cord co mpression with deflection of the cord posteriorly. There is mild to moderate degenerative disc disease in the remainder of the thoracic cord. CONCLUSION: 1. Acute fracture at T6 and T7 with mild posterior displacement results in moderate canal stenosis f rom retropulsion at T6-7 and mild cord compression. 2. At T7-8 focal central disc protrusion also results in moderate canal stenosis and mild cord compr ession. 3. Acute fracture at T11 and prior fracture T12 result in retropulsion at T11-12 with moderate keith l stenosis and mild cord compression with deflection of the cord posteriorly. Electronically signed by: Addison Carmen MD 12/16/2017 4:20 PM EDT
[2017-12-16] MEDS: PIPERACIL-TAZO 3.375 GM PREMIX 50 ML IV SCH ×2 (16:25→22:52)
[2017-12-16] MEDS ORDERED: ALBUMIN 5% INJ 500 ML IV ONE (17:00)
[2017-12-16] MEDS ORDERED: VANCOMYCIN 1,500 MG/NS 500 ML IV ONE ×2 (17:00)
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
--- NOTE | 2017-12-16 21:36 | MG ---
cc: Stephan Bell MD DATE OF STUDY: 12/16/2017. ELECTROENCEPHALOGRAM RECORD NUMBER: [id number]. DESCRIPTION: 5-6 Hz theta 20-40 microvolts with admixed delta and beta frequencies occurring. Tiny, sharp transient epoch 9 delta spindles suggestive of stage II sleep. Limited driving with photic stimulation. Single 12-lead EKG showed sinus rhythm. Good EEG variability and reactivity. Rhythmic Delta towards the end. INTERPRETATION: Mild encephalopathy in sleep state. Clinical correlation. MD EMELIA Lorenzo/ISABELL , 09:11 PM , 09:34 PM
[2017-12-17] VITALS (24 sets, daily range): BP systolic 83–135; BP diastolic 41–65; PULSE 62–69; RESP 20–31; TEMP 97.9–98.8; O2SAT 96–100
[2017-12-17] MEDS: CHLORHEXIDINE GLUCONATE 2 % 1 PACK (2 CLOTHS) TOP SCH (03:54)
--- NOTE | 2017-12-17 04:05 | RADRPT ---
EXAM DATE: 12/17/2017 3:44 AM EDT AGE/SEX: 77 years / Female INDICATIONS: Shortness of breath. CLINICAL DATA: This is the patient's subsequent encounter. Patient reports that signs and symptoms h ave been present for 4 - 6 days and indicates a pain score of Nonresponsive. MEDICAL/SURGICAL HISTORY: Lupus. Carcinoma, uterine. Arthritis. Fusion, thoracic. Hysterecto my. [place] [facility] [place]. . FINDINGS: The endotracheal tube, nasogastric and right-sided chest during good position. Infiltrate remains the right lung base. Small left pleural effusion. Tortuous aorta. Right humerus is patent CONCLUSION: Small infiltrate right lung base. Chest tube in good position. Small left pleural effusion unchanged Electronically signed by: Jose Barrientos MD 12/17/2017 4:04 AM EDT
[2017-12-17 05:07] LABS: AUTOMATED NEUTROPHIL # 11.6 TH/MM3 (1.8-7.7); BASOPHIL % 0.1 % (0.0-2.0); EOSINOPHIL % 0.1 % (0.0-4.0); HEMATOCRIT 22.7 % (35.0-46.0); HEMOGLOBIN 7.4 GM/DL (11.6-15.3); LYMPH % 5.2 % (9.0-44.0); LYMPHOCYTE # 0.7 TH/MM3 (1.0-4.8); MEAN CELL VOLUME 91.1 FL (80.0-100.0); MEAN CORPUSCULAR HEMOGLOBIN 29.8 PG (27.0-34.0); MEAN CORPUSCULAR HGB CONC 32.7 % (32.0-36.0); MEAN PLATELET VOLUME 10.5 FL (7.0-11.0); MONO % 3.9 % (0.0-8.0); MONOCYTE # 0.5 TH/MM3 (0-0.9); NEUT % 90.7 % (16.0-70.0); PLATELET COUNT 42 TH/MM3 (150-450); RED CELL DISTRIBUTION WIDTH 15.3 % (11.6-17.2); WHITE BLOOD COUNT 12.8 TH/MM3 (4.0-11.0)
[2017-12-17] MEDS: PIPERACIL-TAZO 3.375 GM PREMIX 50 ML IV SCH (05:21)
[2017-12-17] MEDS: FREE WATER G-TUBE SCH ×4 (05:21→17:18)
[2017-12-17 05:37] LABS: ALBUMIN 2.3 GM/DL (3.4-5.0); AST (GOT) 200 U/L (15-37); BICARBONATE 17.6 MEQ/L (21.0-32.0); BLOOD UREA NITROGEN 36 MG/DL (7-18); CALCIUM 8.4 MG/DL (8.5-10.1); CHLORIDE 133 MEQ/L (98-107); CREATININE 1.07 MG/DL (0.50-1.00); GLOMERULAR FILTRATION RATE 50 ML/MIN (>89); GLUCOSE,RANDOM 108 MG/DL (74-106); MAGNESIUM 2.5 MG/DL (1.5-2.5)
[2017-12-17 05:45] LABS: SODIUM (NA) 163 MEQ/L (136-145)
[2017-12-17 05:54] LABS: ALKALINE PHOSPHATASE 84 U/L (45-117); ALT (GPT) 720 U/L (10-53); DIGOXIN 1.6 NG/ML (0.8-2.0); RANDOM VANCOMYCIN 12.5 COMMENT; TOTAL BILIRUBIN ADULT 2.8 MG/DL (0.2-1.0)
[2017-12-17] MEDS: SODIUM CHLOR 0.45% 1000 ML INJ 1,000 ML IV SCH (06:00)
[2017-12-17] MEDS: INSULIN ASPART SUPPLEMENTAL SCALE SQ SCH ×4 (06:00→17:27)
[2017-12-17] MEDS: VASOPRESSIN 40 U/D5W 100 ML Titrate, Post Cardiac Surgery IV PRN ×2 (06:07)
[2017-12-17 06:48] LABS: BANDS 28 % (0-6); CORRECTED NUCLEATED RBC 31 /100 WBC (0-0); LYMPHOCYTES 7 % (9-44); MONOCYTES 2 % (0-8); MYELOCYTES 1 % (0-0); NEUTROPHIL # MANUAL DIFF 11.6 TH/MM3 (1.8-7.7); NUCLEATED RED BLOOD CELL 31 (0-0); POLYS (SEG NEUTROPHILS) 62 % (16-70); TOXIC GRANULATION 1+ (NORMAL)
[2017-12-17] MEDS: CHLORHEXIDINE 0.12% (ORAL KIT) 15 ML CUP MT SCH ×2 (07:27→20:36)
[2017-12-17] MEDS: DOCUSATE SODIUM 50 MG/SENNA 8.6 MG TAB PO SCH ×2 (07:28→20:30)
[2017-12-17] MEDS: MAGNESIUM HYDROXIDE SUSP 30 ML CUP PO SCH ×2 (07:28→20:29)
[2017-12-17] MEDS: RESP: ALBUTEROL 2.5 MG/IPRATROPIUM 0.5 MG NEB (PRN) NEB (08:14)
[2017-12-17] MEDS: DIGOXIN 0.5 MG/2 ML VIAL IV PUSH SCH (08:26)
[2017-12-17] MEDS: FAMOTIDINE 20 MG TAB PO SCH ×2 (08:26→20:29)
[2017-12-17] MEDS: AMIODARONE 200 MG TAB PO SCH ×2 (08:26→20:29)
--- NOTE | 2017-12-17 09:21 | HHI.PR ---
Review/Management Diagnosis/Plan: (1) Posttraumatic encephalopathy ICD Codes: F07.81 - Postconcussional syndrome Status: Acute Plan: Posttraumatic encephalopathy; related to metabolic disturbances including hypernatremia, elevated liver enzymes, recent trauma, hypotension related watershed injury. In addition, new infarcts have been found Patient has atrial fibrillation is not on anticoagulation secondary to bleed Recommendations Imaging studies reviewed with patient's daughter and brother at bedside Treatment of hypernatremia Nutritional support Follow exam Patient is critically ill. Patient's family displays understanding Discussed with RN (2) Acute embolic stroke within last 8 weeks Status: Acute Plan: Couple tiny strokes in the right cerebellum; concerned about a possible tiny infarct in the left caudate region as well This may explain some of her right-sided weakness Strokes may be cardioembolic, versus traumatic. As its occur in the cerebellum the carotids are not the etiology Unfortunately due to her bleed requiring blood transfusions it does not appear she can be on any blood thinners at the present time This was discussed with the patient's daughter and brother at bedside (3) Atrial fibrillation with RVR ICD Codes: I48.91 - Unspecified atrial fibrillation Status: Chronic (4) Multiple fractures of ribs of both sides ICD Codes: S22.43XA - Multiple fractures of ribs, bilateral, initial encounter for closed fracture Status: Acute (5) Pelvic hematoma Status: Acute Subjective Subjective Comments No acute events reported Active Medications Current Medications Medications (Trade) Dose Ordered Sig/Karrie Route Start Time Stop Time Status Last Admin (NS Flush) 2 ml UNSCH PRN IVF 12/11/17 13:00 (Brethine Inj) 1 mg UNSCH PRN SQ 12/11/17 23:15 Potassium Chloride 100 ml @ 50 mls/hr Q2H PRN IV 12/12/17 09:45 Potassium Chloride 100 ml @ 50 mls/hr Q2H PRN IV 12/12/17 09:45 12/12/17 15:00 (K-Lyte Cl Eff) 50 meq UNSCH PRN PO 12/12/17 09:45 Potassium Chloride 100 ml @ 25 mls/hr UNSCH PRN IV 12/12/17 09:45 12/14/17 00:41 Potassium Chloride 100 ml @ 50 mls/hr Q2H PRN IV 12/12/17 09:45 Magnesium Sulfate 4 gm/Sodium Chloride 100 ml @ 50 mls/hr UNSCH PRN IV 12/12/17 09:45 (Mag-Ox) 800 mg UNSCH PRN PO 12/12/17 09:45 Magnesium Sulfate 2 gm/Sodium Chloride 100 ml @ 50 mls/hr UNSCH PRN IV 12/12/17 09:45 12/13/17 01:29 (K-Phos) 2,000 mg Q4H PRN PO 12/12/17 09:45 Sodium Phosphate 30 mmol/Sodium Chloride 250 ml @ 42 mls/hr UNSCH PRN IV 12/12/17 09:45 (K-Phos) 2,000 mg UNSCH PRN PO/TUBE 12/12/17 09:45 Potassium Phosphate 30 mmol/ Sodium Chloride 260 ml @ 42 mls/hr UNSCH PRN IV 12/12/17 09:45 (Pepcid) 10 mg BID PO 12/12/17 21:00 12/17/17 08:26 (Zandra-Colace) 1 tab BID PO 12/12/17 21:00 12/16/17 20:19 (Milk Of Magnesia Liq) 30 ml Q12HR PO 12/12/17 09:45 12/16/17 20:19 (Senokot) 17.2 mg Q12H PRN PO 12/12/17 09:45 (Dulcolax Supp) 10 mg DAILY PRN RECTAL 12/12/17 09:45 (Lactulose Liq) 30 ml DAILY PRN PO 12/12/17 09:45 (Peridex 0.12% Liq) 15 ml BID@08,20 MT 12/12/17 20:00 12/17/17 07:27 ([facility]) 1 Q361D XX 12/12/17 09:45 (Chlorhexidine 2% Cloth) 3 pack Taper DAILY@04 TOP 12/13/17 04:00 12/09/18 03:59 12/13/17 04:00 (Chlorhexidine 2% Cloth) 3 pack UNSCH PRN TOP 12/12/17 09:45 (NovoLOG SUPPLEMENTAL SCALE) 1 Q6HR SQ 12/12/17 12:00 12/14/17 23:35 (D50w (Syr) Inj) 50 ml UNSCH PRN IV PUSH 12/12/17 09:45 12/15/17 23:33 (Glucagon Inj) 1 mg UNSCH PRN OTHER 12/12/17 09:45 (Morphine Inj) 2 mg Q2H PRN IV PUSH 12/12/17 09:45 12/12/17 20:07 (Duoneb Neb) 1 ampule Q2HR NEB PRN NEB 12/12/17 11:30 12/17/17 08:14 Midazolam HCl 50 ml @ 2 mls/hr TITRATE PRN IV 12/12/17 13:00 12/14/17 14:53 (Cordarone) 200 mg Q12HR PO 12/14/17 10:00 12/17/17 08:26 Vasopressin 40 units/Dextrose 100 ml @ 1.5 mls/hr TITRATE PRN IV 12/14/17 12:00 12/17/17 06:07 Amiodarone HCl 450 mg/Sodium Chloride 250 ml @ 33.33 mls/ hr TITRATE PRN IV 12/14/17 18:45 12/16/17 13:48 (Free Water) 200 ml Q6HR G-TUBE 12/15/17 12:00 12/17/17 05:21 (Tenormin) 12.5 mg Q12HR PO 12/16/17 09:00 Future Hold 12/16/17 09:02 (Pill Splitter) 1 ea UNSCH PRN OTHER 12/16/17 09:00 (Lanoxin Inj) 0.125 mg DAILY IV PUSH 12/17/17 09:00 12/17/17 08:26 Pharmacy Profile Note 0 ml @ 0 mls/hr UNSCH OTHER 12/16/17 16:00 Sodium Chloride 1,000 ml @ 50 mls/hr Q20H IV 12/17/17 06:00 12/17/17 06:00 Piperacillin Sod/ Tazobactam Sod 50 ml @ 100 mls/hr Q6H IV 12/17/17 11:00 Vancomycin HCl 1250 mg/Sodium Chloride 262.5 ml @ 250 mls/hr Q24H IV 12/17/17 10:00 ([facility] Ordered Lab Info) SPECIFIC LAB TO BE DRAWN:VANCO TROUGH DATE TO... ONCE ONCE .XX 12/20/17 09:45 12/20/17 09:46 Allergies Allergies Coded Allergies No Known Allergies (Unverified Allergy, Unknown, 12/11/17) Review of Systems All other ROS: Unable to obtain Exam I&O / VS 12/17/17 12/17/17 12/18/17 15:00 23:00 07:00 Intake Total 440 ml Output Total 0 ml Balance 440 ml Packed Cells 400 ml Blood Product IV Normal Saline Flush 40 ml Tube Feeding Residual Discard 0 ml Vital Signs Date Time Temp Pulse Resp B/P (MAP) Pulse Ox O2 Delivery O2 Flow Rate FiO2 12/17/17 09:13 98.4 65 28 90/42 99 12/17/17 08:45 98.6 65 28 83/44 99 12/17/17 08:18 100 40 12/17/17 08:15 98.8 63 24 83/41 99 12/17/17 08:12 98.8 63 24 84/43 99 12/17/17 08:00 65 12/17/17 08:00 98.8 62 24 84/43 (57) 99 12/17/17 08:00 40 12/17/17 07:00 98 Mechanical Ventilator 40 12/17/17 06:07 65 98/44 12/17/17 06:00 64 12/17/17 04:00 98.2 63 29 98/51 (67) 99 12/17/17 04:00 64 12/17/17 04:00 40 12/17/17 02:00 64 12/17/17 00:00 98.2 65 20 104/51 (68) 99 12/17/17 00:00 40 12/17/17 00:00 65 12/16/17 22:00 68 12/16/17 20:00 68 12/16/17 20:00 40 12/16/17 20:00 98.4 68 24 94/54 (67) 99 12/16/17 20:00 97 Mechanical Ventilator 40 12/16/17 19:30 98 40 12/16/17 16:00 68 12/16/17 16:00 99.7 68 25 95/55 (68) 100 12/16/17 15:47 93 40 12/16/17 15:39 100 100 18 13:48 69 116/56 12/16/17 12:29 68 90/53 18 12:23 69 90/53 12/16/17 12:00 69 12/16/17 12:00 99.7 69 27 90/53 (65) 96 12/16/17 10:17 95 40 12/16/17 09:20 70 114/54 Exam Comments Intubated off sedation grimaces partially opens eyes not following motor requests nonverbal no gaze deviation pupils approximately 2 mm sluggish ocular socks appear to be intact localized with her upper extremities reduce and lower extremities right Objective Micro and Labs Laboratory Tests Test 12/17/17 04:48 12/17/17 04:50 Blood Gas Puncture Site RT RADIAL Blood Gas Patient Temperature 98.6 Blood Gas HCO3 17 Blood Gas Base Excess -6.0 Blood Gas Oxygen Saturation 93 Arterial Blood pH 7.46 Arterial Blood Partial Pressure CO2 24 Arterial Blood Partial Pressure O2 74 Arterial Blood Oxygen Content 16.6 Arterial Blood Carboxyhemoglobin 1.8 Arterial Blood Methemoglobin 1.1 Blood Gas Hemoglobin 12.6 Oxygen Delivery Device VENTILATOR Blood Gas Ventilator Setting PRVC8/500/0.8/+8 Blood Gas Inspired Oxygen 40 White Blood Count 12.8 Red Blood Count 2.50 Hemoglobin 7.4 Hematocrit 22.7 Mean Corpuscular Volume 91.1 Mean Corpuscular Hemoglobin 29.8 Mean Corpuscular Hemoglobin Concent 32.7 Red Cell Distribution Width 15.3 Platelet Count 42 Mean Platelet Volume 10.5 Neutrophils (%) (Auto) 90.7 Lymphocytes (%) (Auto) 5.2 Monocytes (%) (Auto) 3.9 Eosinophils (%) (Auto) 0.1 Basophils (%) (Auto) 0.1 Neutrophils # (Auto) 11.6 Lymphocytes # (Auto) 0.7 Monocytes # (Auto) 0.5 Eosinophils # (Auto) 0.0 Basophils # (Auto) 0.0 CBC Comment AUTO DIFF Differential Total Cells Counted 100 Neutrophils % (Manual) 62 Band Neutrophils % 28 Lymphocytes % 7 Monocytes % 2 Neutrophils # (Manual) 11.6 Myelocytes 1 Nucleated Red Blood Cells 31 Differential Comment FINAL DIFF MANUAL Toxic Granulation 1+ Platelet Estimate LOW Platelet Morphology Comment NORMAL Blood Urea Nitrogen 36 Creatinine 1.07 Random Glucose 108 Total Protein 5.0 Albumin 2.3 Calcium Level 8.4 Magnesium Level 2.5 Alkaline Phosphatase 84 Aspartate Amino Transf (AST/SGOT) 200 Alanine Aminotransferase (ALT/SGPT) 720 Total Bilirubin 2.8 Sodium Level 163 Potassium Level 3.7 Chloride Level 133 Carbon Dioxide Level 17.6 Anion Gap 12 Estimat Glomerular Filtration Rate 50 Ammonia LESS THAN 10 Random Vancomycin Level 12.5 Digoxin Level 1.6 Date/Time Source Procedure Growth Status 12/17/17 04:55 Blood Peripheral Aerobic Blood Culture Pending Received 12/17/17 04:55 Blood Peripheral Anaerobic Blood Culture Pending Received 12/15/17 10:03 Sputum Endotracheal Gram Stain - Final Resulted 12/15/17 10:03 Sputum Culture - Preliminary Gram Negative Rhett Resulted 12/15/17 10:06 Urine Catheterized Urine Urine Culture - Preliminary NO GROWTH IN 24 HOURS. Resulted Problem Qualifiers (1) Multiple fractures of ribs of both sides: Qualified Codes: S22.43XA - Multiple fractures of ribs, bilateral, initial encounter for closed fracture Stephan Bell MD Dec 17, 2017 09:21
[2017-12-17] MEDS ORDERED: SODIUM CHLOR 0.9% 250 ML INJ 250 ML IV ONE (09:45)
[2017-12-17] MEDS: VANCOMYCIN INJ 1,250 MG in SODIUM CHLOR 0.9% 250 ML INJ 250 ML IV SCH (09:54)
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
[2017-12-17] MEDS: PIPERACIL-TAZO 2.25 GM PREMIX 50 ML IV SCH ×3 (10:50→22:41)
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
[2017-12-17 13:32] LABS: HEMATOCRIT 32.1 % (35.0-46.0); HEMOGLOBIN 10.7 GM/DL (11.6-15.3)
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
[2017-12-18] VITALS (12 sets, daily range): BP systolic 92–129; BP diastolic 48–57; PULSE 68–86; RESP 25–30; TEMP 99–100.2; O2SAT 94–98
[2017-12-18 03:55] LABS: AUTOMATED NEUTROPHIL # 13.7 TH/MM3 (1.8-7.7); BASOPHIL % 0.1 % (0.0-2.0); EOSINOPHIL % 0.1 % (0.0-4.0); HEMATOCRIT 33.9 % (35.0-46.0); HEMOGLOBIN 11.3 GM/DL (11.6-15.3); LYMPH % 3.4 % (9.0-44.0); LYMPHOCYTE # 0.5 TH/MM3 (1.0-4.8); MEAN CELL VOLUME 88.1 FL (80.0-100.0); MEAN CORPUSCULAR HEMOGLOBIN 29.4 PG (27.0-34.0); MEAN CORPUSCULAR HGB CONC 33.3 % (32.0-36.0); MEAN PLATELET VOLUME 10.3 FL (7.0-11.0); MONOCYTE # 0.4 TH/MM3 (0-0.9); NEUT % 93.4 % (16.0-70.0); PLATELET COUNT 49 TH/MM3 (150-450); RED BLOOD COUNT 3.84 MIL/MM3 (4.00-5.30); RED CELL DISTRIBUTION WIDTH 15.7 % (11.6-17.2); WHITE BLOOD COUNT 14.7 TH/MM3 (4.0-11.0)
--- NOTE | 2017-12-18 03:58 | RADRPT ---
EXAM DATE: 12/18/2017 3:48 AM EDT AGE/SEX: 77 years / Female INDICATIONS: Trauma. CLINICAL DATA: This is the patient's subsequent encounter. Patient reports that signs and symptoms h ave been present for 1 week and indicates a pain score of Nonresponsive. MEDICAL/SURGICAL HISTORY: . Lupus. Carcinoma, uterine. Arthritis . Fusion, thoracic. Hysterec ankita COMPARISON: [facility], CHEST SINGLE AP, 12/17/2017. . FINDINGS: The endotracheal tube, nasogastric tube and right chest tube are all in good position. Bilateral pleu ral effusions are again noted. The liver remains quite tortuous. Arthritic disease both shoulders. CONCLUSION: Bilateral pleural effusions with pulmonary vascular congestion, unchanged. Electronically signed by: Jose Barrientos MD 12/18/2017 3:57 AM EDT
[2017-12-18] MEDS: CHLORHEXIDINE GLUCONATE 2 % 1 PACK (2 CLOTHS) TOP SCH (04:00)
[2017-12-18] MEDS: PIPERACIL-TAZO 2.25 GM PREMIX 50 ML IV SCH ×4 (04:05→22:46)
[2017-12-18] MEDS: SODIUM CHLOR 0.45% 1000 ML INJ 1,000 ML IV SCH (04:06)
[2017-12-18 04:21] LABS: ALBUMIN 2.1 GM/DL (3.4-5.0); ALKALINE PHOSPHATASE 98 U/L (45-117); ALT (GPT) 437 U/L (10-53); AST (GOT) 102 U/L (15-37); BICARBONATE 16.5 MEQ/L (21.0-32.0); BLOOD UREA NITROGEN 39 MG/DL (7-18); CALCIUM 8.2 MG/DL (8.5-10.1); CHLORIDE 136 MEQ/L (98-107); CREATININE 1.13 MG/DL (0.50-1.00); GLOMERULAR FILTRATION RATE 47 ML/MIN (>89); GLUCOSE,RANDOM 103 MG/DL (74-106); MAGNESIUM 2.5 MG/DL (1.5-2.5); TOTAL BILIRUBIN ADULT 3.4 MG/DL (0.2-1.0)
[2017-12-18 04:23] LABS: SODIUM (NA) 165 MEQ/L (136-145)
[2017-12-18 04:47] LABS: BANDS 34 % (0-6); CORRECTED NUCLEATED RBC 17 /100 WBC (0-0); LYMPHOCYTES 4 % (9-44); MONOCYTES 3 % (0-8); MYELOCYTES 3 % (0-0); NEUTROPHIL # MANUAL DIFF 13.7 TH/MM3 (1.8-7.7); NUCLEATED RED BLOOD CELL 17 (0-0); POLYS (SEG NEUTROPHILS) 56 % (16-70); TOXIC GRANULATION 2+ (NORMAL)
[2017-12-18 04:48] LABS: DOHLE BODIES PRESENT (NONE SEEN)
[2017-12-18] MEDS: POTASSIUM CHLOR 20 MEQ PREMIX 100 ML IV PRN ×2 (04:50→06:50)
[2017-12-18] MEDS: FREE WATER G-TUBE SCH ×5 (05:03→20:48)
[2017-12-18] MEDS: INSULIN ASPART SUPPLEMENTAL SCALE SQ SCH ×5 (05:04→23:00)
[2017-12-18] MEDS: CHLORHEXIDINE 0.12% (ORAL KIT) 15 ML CUP MT SCH ×2 (07:59→20:00)
[2017-12-18] MEDS: MAGNESIUM HYDROXIDE SUSP 30 ML CUP PO SCH ×2 (07:59→20:47)
[2017-12-18] MEDS: DEXTROSE 5% IN WATE 1000ML INJ 1,000 ML IV SCH (07:59)
[2017-12-18] MEDS: DOCUSATE SODIUM 50 MG/SENNA 8.6 MG TAB PO SCH ×2 (07:59→20:48)
[2017-12-18] MEDS: VANCOMYCIN INJ 1,250 MG in SODIUM CHLOR 0.9% 250 ML INJ 250 ML IV SCH (09:31)
[2017-12-18] MEDS: AMIODARONE 200 MG TAB PO SCH ×2 (09:31→20:47)
[2017-12-18] MEDS: FAMOTIDINE 20 MG TAB PO SCH ×2 (09:31→20:47)
[2017-12-18] MEDS: DIGOXIN 0.5 MG/2 ML VIAL IV PUSH SCH (09:32)
[2017-12-18] MEDS ORDERED: LACTATED RINGER'S 1000 ML INJ 1,000 ML IV ONE ×3 (10:00→19:15)
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
[2017-12-18] MEDS: MORPHINE SULFATE 4 MG/ML INJ IV PUSH PRN (10:57)
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
--- NOTE | 2017-12-18 16:19 | HHI.PR ---
Review/Management Diagnosis/Plan: (1) Posttraumatic encephalopathy ICD Codes: F07.81 - Postconcussional syndrome Status: Acute Plan: Posttraumatic encephalopathy; related to metabolic disturbances including hypernatremia, elevated liver enzymes, recent trauma, hypotension related watershed injury. In addition, new infarcts have been found Patient has atrial fibrillation is not on anticoagulation secondary to bleed Recommendations Critical care following Repeat CT brain scan noncontrast Treatment of hypernatremia Nutritional support Follow exam Patient is critically ill (2) Acute embolic stroke within last 8 weeks Status: Acute Plan: Couple tiny strokes in the right cerebellum; concerned about a possible tiny infarct in the left caudate region as well This may explain some of her right-sided weakness Strokes may be cardioembolic, versus traumatic. As its occur in the cerebellum the carotids are not the etiology Unfortunately due to her bleed requiring blood transfusions it does not appear she can be on any blood thinners at the present time This was discussed with the patient's daughter and brother at bedside (3) Atrial fibrillation with RVR ICD Codes: I48.91 - Unspecified atrial fibrillation Status: Chronic (4) Multiple fractures of ribs of both sides ICD Codes: S22.43XA - Multiple fractures of ribs, bilateral, initial encounter for closed fracture Status: Acute (5) Pelvic hematoma Status: Acute Subjective Subjective Comments No acute events reported Active Medications Current Medications Medications (Trade) Dose Ordered Sig/Karrie Route Start Time Stop Time Status Last Admin (NS Flush) 2 ml UNSCH PRN IVF 12/11/17 13:00 (Brethine Inj) 1 mg UNSCH PRN SQ 12/11/17 23:15 Potassium Chloride 100 ml @ 50 mls/hr Q2H PRN IV 12/12/17 09:45 Potassium Chloride 100 ml @ 50 mls/hr Q2H PRN IV 12/12/17 09:45 12/12/17 15:00 (K-Lyte Cl Eff) 50 meq UNSCH PRN PO 12/12/17 09:45 Potassium Chloride 100 ml @ 25 mls/hr UNSCH PRN IV 12/12/17 09:45 12/14/17 00:41 Potassium Chloride 100 ml @ 50 mls/hr Q2H PRN IV 12/12/17 09:45 12/18/17 06:50 Magnesium Sulfate 4 gm/Sodium Chloride 100 ml @ 50 mls/hr UNSCH PRN IV 12/12/17 09:45 (Mag-Ox) 800 mg UNSCH PRN PO 12/12/17 09:45 Magnesium Sulfate 2 gm/Sodium Chloride 100 ml @ 50 mls/hr UNSCH PRN IV 12/12/17 09:45 12/13/17 01:29 (K-Phos) 2,000 mg Q4H PRN PO 12/12/17 09:45 Sodium Phosphate 30 mmol/Sodium Chloride 250 ml @ 42 mls/hr UNSCH PRN IV 12/12/17 09:45 (K-Phos) 2,000 mg UNSCH PRN PO/TUBE 12/12/17 09:45 Potassium Phosphate 30 mmol/ Sodium Chloride 260 ml @ 42 mls/hr UNSCH PRN IV 12/12/17 09:45 (Pepcid) 10 mg BID PO 12/12/17 21:00 12/18/17 09:31 (Zandra-Colace) 1 tab BID PO 12/12/17 21:00 12/16/17 20:19 (Milk Of Magnesia Liq) 30 ml Q12HR PO 12/12/17 09:45 12/16/17 20:19 (Senokot) 17.2 mg Q12H PRN PO 12/12/17 09:45 (Dulcolax Supp) 10 mg DAILY PRN RECTAL 12/12/17 09:45 (Lactulose Liq) 30 ml DAILY PRN PO 12/12/17 09:45 (Peridex 0.12% Liq) 15 ml BID@08,20 MT 12/12/17 20:00 12/18/17 07:59 ([facility] Nursing Information) 1 Q361D XX 12/12/17 09:45 (Chlorhexidine 2% Cloth) Taper DAILY@04 TOP 12/13/17 04:00 12/09/18 03:59 12/13/17 04:00 (Chlorhexidine 2% Cloth) 3 pack UNSCH PRN TOP 12/12/17 09:45 (NovoLOG SUPPLEMENTAL SCALE) 1 Q6HR SQ 12/12/17 12:00 12/14/17 23:35 (D50w (Syr) Inj) 50 ml UNSCH PRN IV PUSH 12/12/17 09:45 12/15/17 23:33 (Glucagon Inj) 1 mg UNSCH PRN OTHER 12/12/17 09:45 (Morphine Inj) 2 mg Q2H PRN IV PUSH 12/12/17 09:45 12/18/17 10:57 (Duoneb Neb) 1 ampule Q2HR NEB PRN NEB 12/12/17 11:30 12/17/17 08:14 Midazolam HCl 50 ml @ 2 mls/hr TITRATE PRN IV 12/12/17 13:00 12/14/17 14:53 (Cordarone) 200 mg Q12HR PO 12/14/17 10:00 12/18/17 09:31 Vasopressin 40 units/Dextrose 100 ml @ 1.5 mls/hr TITRATE PRN IV 12/14/17 12:00 12/17/17 06:07 (Free Water) 200 ml Q6HR G-TUBE 12/15/17 12:00 12/18/17 11:18 (Tenormin) 12.5 mg Q12HR PO 12/16/17 09:00 Future Hold 12/16/17 09:02 (Pill Splitter) 1 ea UNSCH PRN OTHER 12/16/17 09:00 (Lanoxin Inj) 0.125 mg DAILY IV PUSH 12/17/17 09:00 12/18/17 09:32 Pharmacy Profile Note 0 ml @ 0 mls/hr UNSCH OTHER 12/16/17 16:00 Piperacillin Sod/ Tazobactam Sod 50 ml @ 100 mls/hr Q6H IV 12/17/17 11:00 12/18/17 16:03 Vancomycin HCl 1250 mg/Sodium Chloride 262.5 ml @ 250 mls/hr Q24H IV 12/17/17 10:00 12/18/17 09:31 ([facility] Ordered Lab Info) SPECIFIC LAB TO BE DRAWN:VANCO TROUGH DATE TO... ONCE ONCE .XX 12/20/17 09:45 12/20/17 09:46 Dextrose 1,000 ml @ 50 mls/hr Q20H IV 12/18/17 06:45 12/18/17 07:59 Allergies Allergies Coded Allergies No Known Allergies (Unverified Allergy, Unknown, 12/11/17) Review of Systems All other ROS: Unable to obtain Exam I&O / VS 12/18/17 12/18/17 12/19/17 15:00 23:00 07:00 Intake Total 500 ml 500 ml Balance 500 ml 500 ml Intake IV Total 500 ml 500 ml Vital Signs Date Time Temp Pulse Resp B/P (MAP) Pulse Ox O2 Delivery O2 Flow Rate FiO2 12/18/17 15:24 97 40 12/18/17 12:00 99.3 80 30 95/51 (66) 97 12/18/17 12:00 40 12/18/17 11:30 40 12/18/17 11:29 98 40 12/18/17 08:00 40 12/18/17 08:00 100.2 78 30 94/50 (65) 98 12/18/17 07:30 97 40 12/18/17 07:00 99 Mechanical Ventilator 40 12/18/17 04:10 98 40 12/18/17 04:00 99.9 71 25 104/51 (68) 98 12/18/17 04:00 40 12/18/17 00:00 99.0 68 26 92/48 (63) 98 12/18/17 00:00 40 12/17/17 23:23 98 40 12/17/17 20:28 99 40 12/17/17 20:00 40 12/17/17 20:00 98.2 69 21 110/52 (71) 99 12/17/17 19:00 99 Mechanical Ventilator 40 12/17/17 17:18 96 40 Exam Comments Intubated grimaces partially opens eyes not following motor requests nonverbal no gaze deviation pupils approximately 2 mm no gaze deviation, localized better with the left side with some right-sided hemiparesis; further sensory cerebellar gait testing limited secondary mental status intubated state Objective Micro and Labs Laboratory Tests Test 12/18/17 02:40 12/18/17 04:32 12/18/17 11:18 White Blood Count 14.7 Red Blood Count 3.84 Hemoglobin 11.3 Hematocrit 33.9 Mean Corpuscular Volume 88.1 Mean Corpuscular Hemoglobin 29.4 Mean Corpuscular Hemoglobin Concent 33.3 Red Cell Distribution Width 15.7 Platelet Count 49 Mean Platelet Volume 10.3 Neutrophils (%) (Auto) 93.4 Lymphocytes (%) (Auto) 3.4 Monocytes (%) (Auto) 3.0 Eosinophils (%) (Auto) 0.1 Basophils (%) (Auto) 0.1 Neutrophils # (Auto) 13.7 Lymphocytes # (Auto) 0.5 Monocytes # (Auto) 0.4 Eosinophils # (Auto) 0.0 Basophils # (Auto) 0.0 CBC Comment AUTO DIFF Differential Total Cells Counted 100 Neutrophils % (Manual) 56 Band Neutrophils % 34 Lymphocytes % 4 Monocytes % 3 Neutrophils # (Manual) 13.7 Myelocytes 3 Nucleated Red Blood Cells 17 Differential Comment FINAL DIFF MANUAL Toxic Granulation 2+ Dohle Bodies PRESENT Platelet Estimate LOW Platelet Morphology Comment ENLARGED Blood Urea Nitrogen 39 Creatinine 1.13 Random Glucose 103 Total Protein 5.0 Albumin 2.1 Calcium Level 8.2 Magnesium Level 2.5 Alkaline Phosphatase 98 Aspartate Amino Transf (AST/SGOT) 102 Alanine Aminotransferase (ALT/SGPT) 437 Total Bilirubin 3.4 Sodium Level 165 Potassium Level 3.4 Chloride Level 136 Carbon Dioxide Level 16.5 Anion Gap 13 Estimat Glomerular Filtration Rate 47 Blood Gas Puncture Site LT RADIAL Blood Gas Patient Temperature 98.6 Blood Gas HCO3 17 Blood Gas Base Excess -5.5 Blood Gas Oxygen Saturation 95 Arterial Blood pH 7.51 Arterial Blood Partial Pressure CO2 22 Arterial Blood Partial Pressure O2 82 Arterial Blood Oxygen Content 14.5 Arterial Blood Carboxyhemoglobin 2.0 Arterial Blood Methemoglobin 1.1 Blood Gas Hemoglobin 10.8 Oxygen Delivery Device VENTILATOR Blood Gas Ventilator Setting PRVC/ AC Blood Gas Inspired Oxygen 40 Stool C. difficile Toxin (PCR) NEGATIVE Stl C. difficile Toxin Epiderm 027 PRESUMPTIVE NEGATIVE Date/Time Source Procedure Growth Status 12/17/17 04:55 Blood Peripheral Aerobic Blood Culture - Preliminary NO GROWTH IN 1 DAY Resulted 12/17/17 04:55 Blood Peripheral Anaerobic Blood Culture - Preliminary NO GROWTH IN 1 DAY Resulted 12/15/17 10:03 Sputum Endotracheal Gram Stain - Final Complete 12/15/17 10:03 Sputum Culture - Final Citrobacter Freundii Complete 12/15/17 10:06 Urine Catheterized Urine Urine Culture - Final NO GROWTH IN 48 HOURS. Complete Problem Qualifiers (1) Multiple fractures of ribs of both sides: Qualified Codes: S22.43XA - Multiple fractures of ribs, bilateral, initial encounter for closed fracture Stephan Bell MD Dec 18, 2017 16:18
--- NOTE | 2017-12-18 17:46 | RADRPT ---
EXAM DATE: 12/18/2017 5:42 PM EDT AGE/SEX: 77 years / Female INDICATIONS: Trauma. CLINICAL DATA: This is the patient's initial encounter. Patient reports that signs and symptoms have been present for 1 day and indicates a pain score of Nonresponsive. MEDICAL/SURGICAL HISTORY: . Carcinoma, uterine. Hysterectomy. COMPARISON: [facility] [place], US LEG BILATERAL VENOUS DOPPLER, 12/14/2017. . TECHNIQUE: Venous ultrasound of both lower extremities was performed from the inguinal ligament to t he proximal calf. Real-time, color Doppler and spectral tracing, compression and augmentation techni ques were used. FINDINGS: Right Leg: Normal compression of the deep venous system from the inguinal region to the proximal kristyn f. No echogenic clot is seen. Normal response of the venous system to augmentation and respiration. Left Leg: Normal compression of the deep venous system from the inguinal region to the proximal calf . No echogenic clot is seen. Normal response of the venous system to augmentation and respiration. Other: Redemonstration of left popliteal fossa fluid collection measuring 3.4 x 1.2 x 0.8 cm. CONCLUSION: 1. No sonographic evidence for lower extremity DVT. 2. Redemonstration of left popliteal fossa fluid collection consistent with Molina's cyst. Electronically signed by: Chris Powers MD 12/18/2017 5:44 PM EDT
[2017-12-18] MEDS ORDERED: LACTATED RINGER'S 1000 ML INJ 500 ML IV ONE (18:00)
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
[2017-12-18 18:54] LABS: BICARBONATE 16.1 MEQ/L (21.0-32.0); CALCIUM 8.1 MG/DL (8.5-10.1); CREATININE 1.07 MG/DL (0.50-1.00)
[2017-12-18] MEDS: DESMOPRESSIN ACETATE 4 MCG/ML VIAL IV PUSH SCH (20:48)
[2017-12-19] VITALS (19 sets, daily range): BP systolic 95–132; BP diastolic 51–72; PULSE 70–141; RESP 28–35; TEMP 98.2–99.3; O2SAT 97–100
[2017-12-19] MEDS: FREE WATER G-TUBE SCH ×6 (02:00→21:35)
[2017-12-19] MEDS: DEXTROSE 5% IN WATE 1000ML INJ 1,000 ML IV SCH ×2 (02:11→17:30)
[2017-12-19] MEDS: CHLORHEXIDINE GLUCONATE 2 % 1 PACK (2 CLOTHS) TOP SCH (04:00)
[2017-12-19 04:35] LABS: AUTOMATED NEUTROPHIL # 16.1 TH/MM3 (1.8-7.7); BASOPHIL % 0.1 % (0.0-2.0); EOSINOPHIL # 0.1 TH/MM3 (0-0.4); EOSINOPHIL % 0.3 % (0.0-4.0); HEMATOCRIT 36.7 % (35.0-46.0); HEMOGLOBIN 12.1 GM/DL (11.6-15.3); LYMPH % 5.1 % (9.0-44.0); LYMPHOCYTE # 0.9 TH/MM3 (1.0-4.8); MEAN CELL VOLUME 90.1 FL (80.0-100.0); MEAN CORPUSCULAR HEMOGLOBIN 29.6 PG (27.0-34.0); MEAN CORPUSCULAR HGB CONC 32.8 % (32.0-36.0); MEAN PLATELET VOLUME 11.2 FL (7.0-11.0); MONO % 2.6 % (0.0-8.0); MONOCYTE # 0.4 TH/MM3 (0-0.9); NEUT % 91.9 % (16.0-70.0); PLATELET COUNT 34 TH/MM3 (150-450); RED BLOOD COUNT 4.07 MIL/MM3 (4.00-5.30); RED CELL DISTRIBUTION WIDTH 16.1 % (11.6-17.2); WHITE BLOOD COUNT 17.5 TH/MM3 (4.0-11.0)
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
[2017-12-19 05:11] LABS: ALBUMIN 1.8 GM/DL (3.4-5.0); ALKALINE PHOSPHATASE 123 U/L (45-117); ALT (GPT) 283 U/L (10-53); AST (GOT) 81 U/L (15-37); BICARBONATE 16.3 MEQ/L (21.0-32.0); BLOOD UREA NITROGEN 43 MG/DL (7-18); CALCIUM 7.8 MG/DL (8.5-10.1); CHLORIDE 136 MEQ/L (98-107); GLOMERULAR FILTRATION RATE 48 ML/MIN (>89); GLUCOSE,RANDOM 119 MG/DL (74-106); MAGNESIUM 2.4 MG/DL (1.5-2.5); RANDOM VANCOMYCIN 17.8 COMMENT; TOTAL BILIRUBIN ADULT 4.3 MG/DL (0.2-1.0); TOTAL PROTEIN 4.9 GM/DL (6.4-8.2)
[2017-12-19 05:20] LABS: BANDS 4 % (0-6); CORRECTED NUCLEATED RBC 4 /100 WBC (0-0); LYMPHOCYTES 1 % (9-44); MONOCYTES 1 % (0-8); NEUTROPHIL # MANUAL DIFF 17.2 TH/MM3 (1.8-7.7); NUCLEATED RED BLOOD CELL 4 (0-0); POLYS (SEG NEUTROPHILS) 94 % (16-70)
[2017-12-19 05:28] LABS: SODIUM (NA) 166 MEQ/L (136-145)
[2017-12-19] MEDS: PIPERACIL-TAZO 2.25 GM PREMIX 50 ML IV SCH ×4 (05:38→23:42)
[2017-12-19] MEDS: INSULIN ASPART SUPPLEMENTAL SCALE SQ SCH ×4 (05:39→23:42)
[2017-12-19] MEDS ORDERED: LACTATED RINGER'S 1000 ML INJ 1,000 ML IV ONE (06:30)
[2017-12-19] MEDS: RESP: ALBUTEROL 2.5 MG/IPRATROPIUM 0.5 MG NEB (PRN) NEB (07:26)
[2017-12-19] MEDS: MAGNESIUM HYDROXIDE SUSP 30 ML CUP PO SCH ×2 (07:52→21:35)
[2017-12-19] MEDS: DESMOPRESSIN ACETATE 4 MCG/ML VIAL IV PUSH SCH ×2 (07:53→21:34)
[2017-12-19] MEDS: FAMOTIDINE 20 MG TAB PO SCH ×2 (07:54→21:35)
[2017-12-19] MEDS: CHLORHEXIDINE 0.12% (ORAL KIT) 15 ML CUP MT SCH ×2 (07:54→20:06)
[2017-12-19] MEDS: DOCUSATE SODIUM 50 MG/SENNA 8.6 MG TAB PO SCH ×2 (07:54→21:35)
[2017-12-19] MEDS: DIGOXIN 0.5 MG/2 ML VIAL IV PUSH SCH (07:54)
[2017-12-19] MEDS: AMIODARONE 200 MG TAB PO SCH ×2 (07:54→21:34)
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
[2017-12-19] MEDS: VANCOMYCIN INJ 1,250 MG in SODIUM CHLOR 0.9% 250 ML INJ 250 ML IV SCH (10:56)
[2017-12-19 11:03] LABS: BICARBONATE 17.7 MEQ/L (21.0-32.0); CALCIUM 7.9 MG/DL (8.5-10.1); CREATININE 1.06 MG/DL (0.50-1.00)
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
[2017-12-19] MEDS ORDERED: AMIODARONE HCL 150 MG/3 ML VIAL ONE (15:54)
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
[2017-12-19] MEDS ORDERED: AMIODARONE 150 MG/D5W 97 ML BOLUS 10 MINUTES IV ONE ×2 (16:15)
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
[2017-12-19] MEDS ORDERED: DIGOXIN 0.5 MG/2 ML VIAL IV PUSH ONE (17:00)
[2017-12-19 17:29] LABS: BICARBONATE 15.9 MEQ/L (21.0-32.0); CALCIUM 7.9 MG/DL (8.5-10.1)
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
[2017-12-19 23:26] LABS: BICARBONATE 15.3 MEQ/L (21.0-32.0); CALCIUM 7.6 MG/DL (8.5-10.1); CREATININE 0.95 MG/DL (0.50-1.00)
[2017-12-20] VITALS (18 sets, daily range): BP systolic 84–127; BP diastolic 47–84; PULSE 78–114; RESP 31–36; TEMP 98.8–100.9; O2SAT 95–99
[2017-12-20] MEDS: FREE WATER G-TUBE SCH ×6 (02:43→21:49)
[2017-12-20] MEDS: CHLORHEXIDINE GLUCONATE 2 % 1 PACK (2 CLOTHS) TOP SCH (04:25)
[2017-12-20] MEDS: PIPERACIL-TAZO 2.25 GM PREMIX 50 ML IV SCH ×2 (05:51→09:52)
[2017-12-20] MEDS: INSULIN ASPART SUPPLEMENTAL SCALE SQ SCH ×3 (06:08→18:00)
[2017-12-20 06:19] LABS: ALBUMIN 1.5 GM/DL (3.4-5.0); ALKALINE PHOSPHATASE 121 U/L (45-117); ALT (GPT) 189 U/L (10-53); AST (GOT) 86 U/L (15-37); BICARBONATE 13.4 MEQ/L (21.0-32.0); BLOOD UREA NITROGEN 45 MG/DL (7-18); CALCIUM 7.5 MG/DL (8.5-10.1); CHLORIDE 136 MEQ/L (98-107); CREATININE 1.05 MG/DL (0.50-1.00); GLOMERULAR FILTRATION RATE 51 ML/MIN (>89); GLUCOSE,RANDOM 125 MG/DL (74-106); MAGNESIUM 2.6 MG/DL (1.5-2.5); TOTAL BILIRUBIN ADULT 4.9 MG/DL (0.2-1.0); TOTAL PROTEIN 4.5 GM/DL (6.4-8.2)
[2017-12-20 06:27] LABS: SODIUM (NA) 165 MEQ/L (136-145)
--- NOTE | 2017-12-20 06:34 | RADRPT ---
EXAM DATE: 12/20/2017 5:36 AM EDT AGE/SEX: 77 years / Female INDICATIONS: Shortness of breath. CLINICAL DATA: This is the patient's subsequent encounter. Patient reports that signs and symptoms h ave been present for 4 - 6 days and indicates a pain score of Nonresponsive. MEDICAL/SURGICAL HISTORY: Non-responsive. Non-responsive. COMPARISON: [facility] – [place], CHEST SINGLE AP, 12/19/2017. . FINDINGS: The endotracheal tube and nasogastric tube are both in good position. Right-sided chest tube in good position. Bilateral perihilar vascular congestion. No visible pneumothorax. Bilateral pleural effusio ns left greater than right. CONCLUSION: Small lung volumes. Tubes and catheters in good position. Electronically signed by: Jose Barrientos MD 12/20/2017 6:33 AM EDT
[2017-12-20 06:58] LABS: AUTOMATED NEUTROPHIL # 15.1 TH/MM3 (1.8-7.7); BASOPHIL % 0.1 % (0.0-2.0); EOSINOPHIL # 0.1 TH/MM3 (0-0.4); EOSINOPHIL % 0.4 % (0.0-4.0); HEMATOCRIT 36.9 % (35.0-46.0); HEMOGLOBIN 12.3 GM/DL (11.6-15.3); LYMPH % 2.9 % (9.0-44.0); LYMPHOCYTE # 0.5 TH/MM3 (1.0-4.8); MEAN CELL VOLUME 89.5 FL (80.0-100.0); MEAN CORPUSCULAR HEMOGLOBIN 29.8 PG (27.0-34.0); MEAN CORPUSCULAR HGB CONC 33.3 % (32.0-36.0); MEAN PLATELET VOLUME 12.2 FL (7.0-11.0); MONO % 2.7 % (0.0-8.0); MONOCYTE # 0.4 TH/MM3 (0-0.9); NEUT % 93.9 % (16.0-70.0); PLATELET COUNT 37 TH/MM3 (150-450); RED BLOOD COUNT 4.12 MIL/MM3 (4.00-5.30); RED CELL DISTRIBUTION WIDTH 15.7 % (11.6-17.2); WHITE BLOOD COUNT 16.1 TH/MM3 (4.0-11.0)
[2017-12-20] MEDS: DEXTROSE 5% IN WATE 1000ML INJ 1,000 ML IV SCH ×2 (07:45→20:47)
[2017-12-20] MEDS: CHLORHEXIDINE 0.12% (ORAL KIT) 15 ML CUP MT SCH ×2 (08:00→20:47)
[2017-12-20] MEDS: MAGNESIUM HYDROXIDE SUSP 30 ML CUP PO SCH ×2 (08:33→21:33)
[2017-12-20] MEDS: DOCUSATE SODIUM 50 MG/SENNA 8.6 MG TAB PO SCH ×2 (08:34→21:33)
[2017-12-20] MEDS: DESMOPRESSIN ACETATE 4 MCG/ML VIAL IV PUSH SCH ×2 (08:43→21:48)
[2017-12-20] MEDS: AMIODARONE 200 MG TAB PO SCH ×2 (08:43→21:49)
[2017-12-20] MEDS: DIGOXIN 0.125 MG TAB PO SCH (08:43)
[2017-12-20] MEDS: FAMOTIDINE 20 MG TAB PO SCH ×2 (08:43→21:49)
[2017-12-20] MEDS: VANCOMYCIN INJ 1,250 MG in SODIUM CHLOR 0.9% 250 ML INJ 250 ML IV SCH (08:44)
[2017-12-20] MEDS ORDERED: ACETAMINOPHEN 325 MG TAB PO PRN (09:30)
[2017-12-20 09:35] LABS: BANDS 14 % (0-6); CORRECTED NUCLEATED RBC 3 /100 WBC (0-0); LYMPHOCYTES 3 % (9-44); MONOCYTES 1 % (0-8); NEUTROPHIL # MANUAL DIFF 15.5 TH/MM3 (1.8-7.7); NUCLEATED RED BLOOD CELL 3 (0-0); POLYS (SEG NEUTROPHILS) 82 % (16-70)
[2017-12-20 09:36] LABS: TOXIC GRANULATION 1+ (NORMAL)
[2017-12-20 09:37] LABS: ACANTHOCYTES OCC (NORMAL); OVALOCYTES 1+ (NORMAL)
[2017-12-20] MEDS ORDERED: PHARMACY ORDERED LAB ONE (09:45)
[2017-12-20] MEDS: MORPHINE SULFATE 4 MG/ML INJ IV PUSH PRN (09:52)
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
[2017-12-20] MEDS: METOPROLOL TARTRATE 25 MG TAB PO SCH ×2 (14:00→21:49)
[2017-12-20 14:02] LABS: BICARBONATE 13.4 MEQ/L (21.0-32.0); CALCIUM 6.6 MG/DL (8.5-10.1); CREATININE 1.12 MG/DL (0.50-1.00)
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
[2017-12-20 14:23] LABS: CALCIUM-PROTEIN CORRECTED 9.3 MG/DL (8.5-10.1); TOTAL PROTEIN 2.6 GM/DL (6.4-8.2)
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
[2017-12-20] MEDS ORDERED: ASP: Other exception documentation: ( ) PRN (16:00)
[2017-12-20] MEDS ORDERED: PHARMACY INFORMATION XX PRN ×2 (16:00)
[2017-12-20] MEDS: MEROPENEM INJ 1,000 MG in SODIUM CHLORIDE 0.9% INJ 100 ML IV SCH (17:13)
[2017-12-20] MEDS ORDERED: DEXTROSE 5% IN WATE 1000ML INJ 1,000 ML IV ONE (17:45)
[2017-12-20] MEDS ORDERED: ALBUMIN 5% INJ 500 ML IV ONE (17:45)
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
--- NOTE | 2017-12-20 18:14 | EKG ---
Date Performed: 12/20/2017 Time Performed: 11:10:04 PTAGE: 77 years EKG: Atrial fibrillation with rapid ventricular response. Inferior and anterior T wave changes a re nonspecific Low QRS voltages in precordial leads Abnormal ECG NO PREVIOUS TRACING When compared to the prior EKG,the heart has improved though still ra pid ventricular rate DOCTOR: Zeenat Sandhu Interpretating Date/Time 12/20/2017 18:12:17
[2017-12-20] MEDS ORDERED: VASOPRESSIN 20 UNITS/ML VIAL ONE (18:50)
[2017-12-20 19:05] LABS: BICARBONATE 13.2 MEQ/L (21.0-32.0); CALCIUM 7.2 MG/DL (8.5-10.1); CREATININE 1.34 MG/DL (0.50-1.00); TROPONIN I 0.12 NG/ML (0.02-0.05)
[2017-12-20] MEDS: VASOPRESSIN 40 U/D5W 100 ML Shock/septic shock, do NOT titrate until taper off IV SCH ×2 (19:05)
[2017-12-20 23:52] LABS: BICARBONATE 12.9 MEQ/L (21.0-32.0); CALCIUM 7.5 MG/DL (8.5-10.1); CREATININE 1.46 MG/DL (0.50-1.00)
[2017-12-21] VITALS (18 sets, daily range): BP systolic 81–103; BP diastolic 45–55; PULSE 74–120; RESP 33–38; TEMP 97–98.4; O2SAT 94–96
[2017-12-21] MEDS: INSULIN ASPART SUPPLEMENTAL SCALE SQ SCH ×4 (00:51→18:00)
[2017-12-21] MEDS: FREE WATER G-TUBE SCH ×2 (02:12→05:47)
[2017-12-21] MEDS: CHLORHEXIDINE GLUCONATE 2 % 1 PACK (2 CLOTHS) TOP SCH (04:00)
--- NOTE | 2017-12-21 04:13 | RADRPT ---
EXAM DATE: 12/21/2017 4:00 AM EDT AGE/SEX: 77 years / Female INDICATIONS: Short of breath. CLINICAL DATA: This is the patient's subsequent encounter. Patient reports that signs and symptoms h ave been present for 1 week and indicates a pain score of Nonresponsive. MEDICAL/SURGICAL HISTORY: Non-responsive. Non-responsive. [place] [facility] [place]. . FINDINGS: A single AP semierect portable view the chest was obtained and again demonstrates an endotracheal tub e in place with the tip approximately 3 cm above the gigi. The nasogastric tube remains in place wi th the tip in the stomach. The right sided chest tube remains in place with no pneumothorax. There ar e no confluent infiltrates. The left costophrenic angle appears mildly blunted. The heart size is at the upper limits of normal. The study remains mid inspiratory. CONCLUSION: 1. Stable appearance with right-sided chest tube and no pneumothorax. 2. The patient remains intubated. 3. Mid inspiratory exam with crowding of the lung vasculature. Electronically signed by: Rommel Ordonez MD 12/21/2017 4:12 AM EDT
[2017-12-21] MEDS: MEROPENEM INJ 1,000 MG in SODIUM CHLORIDE 0.9% INJ 100 ML IV SCH ×2 (05:47→16:43)
[2017-12-21] MEDS: METOPROLOL TARTRATE 25 MG TAB PO SCH ×3 (05:48→20:03)
[2017-12-21] MEDS: CHLORHEXIDINE 0.12% (ORAL KIT) 15 ML CUP MT SCH ×2 (08:00→20:02)
--- NOTE | 2017-12-21 08:25 | HHI.PR ---
Review/Management Diagnosis/Plan: (1) Posttraumatic encephalopathy ICD Codes: F07.81 - Postconcussional syndrome Status: Acute Plan: Posttraumatic encephalopathy; related to metabolic disturbances including hypernatremia, elevated liver enzymes, recent trauma, hypotension related watershed injury. In addition, new infarcts have been found Patient has atrial fibrillation is not on anticoagulation secondary to bleed Recommendations Neuro unchanged; medically getting worse Repeat CT brain scan noncontrast; pending. 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 As its occur in the cerebellum the carotids are not the etiology Unfortunately due to her bleed requiring blood transfusions it does not appear she can be on any blood thinners at the present time This was discussed with the patient's daughter and brother at bedside (3) Atrial fibrillation with RVR ICD Codes: I48.91 - Unspecified atrial fibrillation Status: Chronic (4) Multiple fractures of ribs of both sides ICD Codes: S22.43XA - Multiple fractures of ribs, bilateral, initial encounter for closed fracture Status: Acute (5) Pelvic hematoma Status: Acute Subjective Subjective Comments Hypotensive, intubated Active Medications Current Medications Medications (Trade) Dose Ordered Sig/Karrie Route Start Time Stop Time Status Last Admin (NS Flush) 2 ml UNSCH PRN IVF 12/11/17 13:00 12/18/17 20:47 (Brethine Inj) 1 mg UNSCH PRN SQ 12/11/17 23:15 Potassium Chloride 100 ml @ 50 mls/hr Q2H PRN IV 12/12/17 09:45 Potassium Chloride 100 ml @ 50 mls/hr Q2H PRN IV 12/12/17 09:45 12/12/17 15:00 (K-Lyte Cl Eff) 50 meq UNSCH PRN PO 12/12/17 09:45 Potassium Chloride 100 ml @ 25 mls/hr UNSCH PRN IV 12/12/17 09:45 12/14/17 00:41 Potassium Chloride 100 ml @ 50 mls/hr Q2H PRN IV 12/12/17 09:45 12/18/17 06:50 Magnesium Sulfate 4 gm/Sodium Chloride 100 ml @ 50 mls/hr UNSCH PRN IV 12/12/17 09:45 (Mag-Ox) 800 mg UNSCH PRN PO 12/12/17 09:45 Magnesium Sulfate 2 gm/Sodium Chloride 100 ml @ 50 mls/hr UNSCH PRN IV 12/12/17 09:45 12/13/17 01:29 (K-Phos) 2,000 mg Q4H PRN PO 12/12/17 09:45 Sodium Phosphate 30 mmol/Sodium Chloride 250 ml @ 42 mls/hr UNSCH PRN IV 12/12/17 09:45 (K-Phos) 2,000 mg UNSCH PRN PO/TUBE 12/12/17 09:45 Potassium Phosphate 30 mmol/ Sodium Chloride 260 ml @ 42 mls/hr UNSCH PRN IV 12/12/17 09:45 (Pepcid) 10 mg BID PO 12/12/17 21:00 12/20/17 21:49 (Zandra-Colace) 1 tab BID PO 12/12/17 21:00 12/19/17 21:35 (Milk Of Magnesia Liq) 30 ml Q12HR PO 12/12/17 09:45 12/19/17 21:35 (Senokot) 17.2 mg Q12H PRN PO 12/12/17 09:45 (Dulcolax Supp) 10 mg DAILY PRN RECTAL 12/12/17 09:45 (Lactulose Liq) 30 ml DAILY PRN PO 12/12/17 09:45 (Peridex 0.12% Liq) 15 ml BID@08,20 MT 12/12/17 20:00 12/21/17 08:00 [place] 1 Q361D XX 12/12/17 09:45 (Chlorhexidine 2% Cloth) Taper DAILY@04 TOP 12/13/17 04:00 12/09/18 03:59 12/21/17 04:00 (Chlorhexidine 2% Cloth) 3 pack UNSCH PRN TOP 12/12/17 09:45 (NovoLOG SUPPLEMENTAL SCALE) 1 Q6HR SQ 12/12/17 12:00 12/14/17 23:35 (D50w (Syr) Inj) 50 ml UNSCH PRN IV PUSH 12/12/17 09:45 12/15/17 23:33 (Glucagon Inj) 1 mg UNSCH PRN OTHER 12/12/17 09:45 (Morphine Inj) 2 mg Q2H PRN IV PUSH 12/12/17 09:45 12/20/17 09:52 (Duoneb Neb) 1 ampule Q2HR NEB PRN NEB 12/12/17 11:30 12/19/17 07:26 Midazolam HCl 50 ml @ 2 mls/hr TITRATE PRN IV 12/12/17 13:00 12/14/17 14:53 (Cordarone) 200 mg Q12HR PO 12/14/17 10:00 12/20/17 21:49 (Pill Splitter) 1 ea UNSCH PRN OTHER 12/16/17 09:00 Pharmacy Profile Note 0 ml @ 0 mls/hr UNSCH OTHER 12/16/17 16:00 Vancomycin HCl 1250 mg/Sodium Chloride 262.5 ml @ 250 mls/hr Q24H IV 12/17/17 10:00 12/20/17 08:44 Dextrose 1,000 ml @ 80 mls/hr [id number] IV 12/18/17 06:45 12/20/17 20:47 (Free Water) 300 ml Q4H G-TUBE 12/18/17 18:00 12/21/17 05:47 (Ddavp Inj) 2 mcg Q12HR IV PUSH 12/18/17 21:00 12/20/17 21:48 (Lanoxin) 0.125 mg DAILY PO 12/20/17 09:00 12/20/17 08:43 [place] [place] Info) SPECIFIC LAB TO BE JEAN-PIERRE... ONCE ONCE .XX 12/22/17 09:45 12/22/17 09:46 (Tylenol) 650 mg Q6H PRN PO 12/20/17 09:30 12/20/17 17:11 (Lopressor) 12.5 mg Q8HR PO 12/20/17 14:00 (ASP Crit: Other exception documentation) 1 UNSCH X1 PRN .XX 12/20/17 16:00 12/21/17 15:59 ([facility] 1 UNSCH X1 PRN XX 6/21/18 16:00 12/21/17 15:59 Meropenem 1000 mg/ Sodium Chloride 100 ml @ 200 mls/hr Q12H IV 12/20/17 17:00 12/21/17 05:47 ([facility]) 1 UNSCH X1 PRN XX 12/20/17 16:00 12/21/17 15:59 Vasopressin 40 units/Dextrose 100 ml @ 3 mls/hr Q24H IV 12/20/17 19:00 12/20/17 19:05 Allergies Allergies Coded Allergies No Known Allergies (Unverified Allergy, Unknown, 12/11/17) Review of Systems All other ROS: Unable to obtain Exam I&O / VS Vital Signs Date Time Temp Pulse Resp B/P (MAP) Pulse Ox O2 Delivery O2 Flow Rate FiO2 12/21/17 08:00 30 12/21/17 08:00 98.4 103 37 81/45 (57) 95 12/21/17 08:00 103 12/21/17 07:46 95 30 12/21/17 06:00 79 12/21/17 04:07 96 30 12/21/17 04:00 74 12/21/17 04:00 97.7 74 34 97/54 (68) 96 12/21/17 04:00 30 12/21/17 02:00 79 12/21/17 00:00 97.0 82 33 103/52 (69) 96 12/21/17 00:00 82 12/21/17 00:00 30 12/20/17 22:57 96 30 12/20/17 22:00 90 12/20/17 20:00 30 12/20/17 20:00 98.8 78 33 84/47 (59) 95 12/20/17 20:00 78 12/20/17 19:32 96 30 12/20/17 19:05 103 78/45 12/20/17 18:00 82 12/20/17 16:13 95 30 12/20/17 16:00 100.8 100 35 84/48 (60) 96 12/20/17 16:00 100 12/20/17 16:00 30 12/20/17 14:00 112 12/20/17 12:00 114 12/20/17 12:00 30 12/20/17 12:00 100.9 114 36 97/57 (70) 97 12/20/17 11:57 97 30 12/20/17 10:00 108 Exam Comments Intubated grimaces partially opens eyes not following motor requests nonverbal no gaze deviation pupils approximately 2 mm no gaze deviation, localized better with the left side with some right-sided hemiparesis; further sensory cerebellar gait testing limited secondary mental status intubated state Objective Micro and Labs Laboratory Tests Test 12/20/17 12:44 12/20/17 17:16 12/20/17 23:02 12/21/17 05:25 Blood Urea Nitrogen 54 55 63 Creatinine 1.12 1.34 1.46 Random Glucose 123 216 124 Total Protein 2.6 4.0 Calcium Level 6.6 7.2 7.5 Sodium Level 162 155 153 Potassium Level 4.5 3.7 3.9 Chloride Level 135 128 126 Carbon Dioxide Level 13.4 13.2 12.9 Anion Gap 14 14 14 Estimat Glomerular Filtration Rate 47 38 35 Protein Corrected Calcium 9.3 9.0 Troponin I 0.12 Blood Gas Puncture Site LT RADIAL Blood Gas Patient Temperature 98.6 Blood Gas HCO3 12 Blood Gas Base Excess -11.6 Blood Gas Oxygen Saturation 92 Arterial Blood pH 7.44 Arterial Blood Partial Pressure CO2 18 Arterial Blood Partial Pressure O2 75 Arterial Blood Oxygen Content 14.3 Arterial Blood Carboxyhemoglobin 2.8 Arterial Blood Methemoglobin 1.5 Blood Gas Hemoglobin 11.0 Oxygen Delivery Device VENT Blood Gas Ventilator Setting PRVC/AC Blood Gas Inspired Oxygen 30 Date/Time Source Procedure Growth Status 12/20/17 17:16 Blood Peripheral Aerobic Blood Culture Pending Received 12/20/17 17:16 Blood Peripheral Anaerobic Blood Culture Pending Received 12/15/17 10:03 Sputum Endotracheal Gram Stain - Final Complete 12/15/17 10:03 Sputum Culture - Final Citrobacter Freundii Complete 12/15/17 10:06 Urine Catheterized Urine Urine Culture - Final NO GROWTH IN 48 HOURS. Complete Problem Qualifiers (1) Multiple fractures of ribs of both sides: Qualified Codes: S22.43XA - Multiple fractures of ribs, bilateral, initial encounter for closed fracture Stephan Bell MD Dec 21, 2017 08:25
[2017-12-21] MEDS: DEXTROSE 5% IN WATE 1000ML INJ 1,000 ML IV SCH (08:45)
[2017-12-21] MEDS ORDERED: SODIUM BICARBONATE 8.4% INJ 50 MEQ/50 ML SYR IV PUSH ONE (09:45)
[2017-12-21] MEDS ORDERED: LACTATED RINGER'S 1000 ML INJ 1,000 ML IV ONE (09:45)
[2017-12-21] MEDS ORDERED: SODIUM CHLOR 0.9% 1000 ML INJ 1,000 ML IV ONE (09:45)
[2017-12-21] MEDS ORDERED: SODIUM CHLOR 0.9% 1000 ML INJ 1,000 ML IV SCH (09:45)
[2017-12-21] MEDS ORDERED: ALBUMIN 5% INJ 500 ML IV ONE (10:00)
[2017-12-21] MEDS: MAGNESIUM HYDROXIDE SUSP 30 ML CUP PO SCH ×2 (10:08→20:02)
[2017-12-21] MEDS: DOCUSATE SODIUM 50 MG/SENNA 8.6 MG TAB PO SCH ×2 (10:08→20:03)
[2017-12-21] MEDS: DIGOXIN 0.125 MG TAB PO SCH (10:08)
[2017-12-21] MEDS: FAMOTIDINE 20 MG TAB PO SCH ×2 (10:08→20:02)
[2017-12-21] MEDS: AMIODARONE 200 MG TAB PO SCH ×2 (10:08→20:02)
[2017-12-21] MEDS: VANCOMYCIN INJ 1,250 MG in SODIUM CHLOR 0.9% 250 ML INJ 250 ML IV SCH (10:08)
[2017-12-21 11:46] LABS: AUTOMATED NEUTROPHIL # 15.7 TH/MM3 (1.8-7.7); BASOPHIL # 0.1 TH/MM3 (0-0.2); BASOPHIL % 0.3 % (0.0-2.0); EOSINOPHIL % 0.1 % (0.0-4.0); HEMATOCRIT 31.6 % (35.0-46.0); HEMOGLOBIN 10.4 GM/DL (11.6-15.3); LYMPH % 2.4 % (9.0-44.0); LYMPHOCYTE # 0.4 TH/MM3 (1.0-4.8); MEAN CELL VOLUME 90.6 FL (80.0-100.0); MEAN CORPUSCULAR HEMOGLOBIN 29.7 PG (27.0-34.0); MEAN CORPUSCULAR HGB CONC 32.7 % (32.0-36.0); MEAN PLATELET VOLUME 13.6 FL (7.0-11.0); MONOCYTE # 0.3 TH/MM3 (0-0.9); NEUT % 95.2 % (16.0-70.0); PLATELET COUNT 37 TH/MM3 (150-450); RED BLOOD COUNT 3.49 MIL/MM3 (4.00-5.30); RED CELL DISTRIBUTION WIDTH 16.4 % (11.6-17.2); WHITE BLOOD COUNT 16.5 TH/MM3 (4.0-11.0)
[2017-12-21 12:00] LABS: CREATININE 1.51 MG/DL (0.50-1.00)
[2017-12-21 12:01] LABS: ALBUMIN 1.5 GM/DL (3.4-5.0); CALCIUM-PROTEIN CORRECTED 8.8 MG/DL (8.5-10.1); MAGNESIUM 3.1 MG/DL (1.5-2.5); TOTAL BILIRUBIN ADULT 8.1 MG/DL (0.2-1.0); TOTAL PROTEIN 3.9 GM/DL (6.4-8.2)
[2017-12-21 12:02] LABS: BICARBONATE 11.4 MEQ/L (21.0-32.0)
[2017-12-21] MEDS ORDERED: DEXT 5%-NACL 0.9% 500 ML INJ 500 ML IV SCH (12:45)
[2017-12-21 14:01] LABS: BANDS 12 % (0-6); CORRECTED NUCLEATED RBC 6 /100 WBC (0-0); LYMPHOCYTES 3 % (9-44); MONOCYTES 5 % (0-8); NEUTROPHIL # MANUAL DIFF 15.2 TH/MM3 (1.8-7.7); NUCLEATED RED BLOOD CELL 6 (0-0); POLYS (SEG NEUTROPHILS) 80 % (16-70)
[2017-12-21 14:02] LABS: TOXIC GRANULATION 1+ (NORMAL)
[2017-12-21 14:03] LABS: ACANTHOCYTES 1+ (NORMAL); OVALOCYTES 1+ (NORMAL)
--- NOTE | 2017-12-21 15:05 | HHI.NSPN ---
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 STK-MED ONCE .ROUTE ; Start 12/14/17 at 10: 57; Stop 12/14/17 at 10:58; Status DC Vasopressin 40 units/Dextrose 100 ml @ 1.5 mls/hr TITRATE PRN IV Blood Pressure Management Last administered on 12/17/17at 06:07; Start 12/14/17 at 12: 00; Stop 12/20/17 at 19:02; Status DC Amiodarone HCl 150 mg/Dextrose 100 ml @ 600 mls/hr NOW ONCE IV Last administered on 12/14/17at 12:18; Start 12/14/17 at 11:30; Stop 12/14/17 at 11:39 ; Status DC Sodium Bicarbonate (Sodium Bicarbonate 8.4% Inj) 50 meq STK-MED ONCE IV ; Start 12/12/17 at 15:59; Stop 12/14/17 at 16:00; Status DC Amiodarone HCl 450 mg/Sodium Chloride 250 ml @ 33.33 mls/ hr TITRATE PRN IV Per Protocol Last administered on 12/16/17at 13:48; Start 12/14/17 at 18:45; Stop 12/17/17 at 10:18; Status DC Esmolol HCl/ Sodium Chloride 250 ml @ 28.65 mls/ hr TITRATE PRN IV Blood Pressure Management; Start 12/14/17 at 20:30; Stop 12/15/17 at 09:41; Status DC Esmolol HCl (Brevibloc Bolus Inj) 96 mg BOLUS ONCE IV PUSH ; Start 12/14/17 at 20:30; Stop 12/15/17 at 09:41; Status DC Amiodarone HCl 150 mg/Dextrose 100 ml @ 600 mls/hr NOW ONCE IV Last administered on 12/14/17at 22:00; Start 12/14/17 at 21:45; Stop 12/14/17 at 21:54 ; Status DC Water (Free Water) 200 ml Q6HR G-TUBE Last administered on 12/18/17at 11:18; Start 12/15/17 at 12:00; Stop 12/18/17 at 17:51; Status DC Atenolol (Tenormin) 12.5 mg Q12HR PO Last administered on 12/15/17at 20:14; Start 12/15/17 at 21:00; Stop 12/16/17 at 08:58; Status DC Furosemide (Lasix Inj) 20 mg ONCE ONCE IV PUSH Last administered on 12/15/17at 10:19; Start 12/15/17 at 09:45; Stop 12/15/17 at 09:47; Status DC Potassium Bicarb/ Potassium Chloride (K-Lyte Cl Eff) 25 meq ONCE ONCE PO Last administered on 12/15/17at 10:18; Start 12/15/17 at 10:00; Stop 12/15/17 at 10:16; Status DC Atenolol (Tenormin) 12.5 mg Q12HR PO Last administered on 12/16/17at 09:02; Start 12/16/17 at 09:00; Stop 12/20/17 at 11:23; Status DC Miscellaneous (Pill Splitter) 1 ea UNSCH PRN OTHER SEE LABEL COMMENTS; Start at 09:00; Stop 12/25/17 at 14:15; Status DC Digoxin (Lanoxin Inj) 0.125 mg DAILY IV PUSH Last administered on 12/19/17at 07: 54; Start 12/17/17 at 09:00; Stop 12/19/17 at 13:52; Status DC Pharmacy Profile Note 0 ml @ 0 mls/hr UNSCH OTHER ; Start 12/16/17 at 16:00; Stop 12/25/17 at 14:15; Status DC Piperacillin Sod/ Tazobactam Sod 50 ml @ 100 mls/hr Q6H IV Last administered on 12/17/17at 05:21; Start 12/16/17 at 17:00; Stop 12/17/17 at 08:36; Status DC Vancomycin HCl 1500 mg/Sodium Chloride 515 ml @ 257.5 mls/ hr ONCE ONCE IV Last administered on 12/16/17at 16:53; Start 12/16/17 at 17:00; Stop 12/16/17 at 18:59; Status DC Albumin Human 500 ml @ 100 mls/hr ONCE ONCE IV Last administered on at 16:55; Start 12/16/17 at 17:00; Stop 12/16/17 at 21:59; Status DC Sodium Chloride 1,000 ml @ 50 mls/hr Q20H IV Last administered on 12/18/17at 04 :06; Start 12/17/17 at 06:00; Stop 12/18/17 at 06:36; Status DC Piperacillin Sod/ Tazobactam Sod 50 ml @ 100 mls/hr Q6H IV Last administered on 12/20/17at 09:52; Start 12/17/17 at 11:00; Stop 12/20/17 at 15:51; Status DC Vancomycin HCl 1250 mg/Sodium Chloride 262.5 ml @ 250 mls/hr Q24H IV Last administered on 12/21/17at 10:08; Start 12/17/17 at 10:00; Stop 12/22/17 at 11:17 ; Status DC Miscellaneous Information ([facility] Ordered Lab Info) SPECIFIC LAB TO BE DRAWN:VANCO TROUGH DATE TO... ONCE ONCE .XX ; Start 12/20/17 at 09:45; Stop at 09:45; Status DC Sodium Chloride 250 ml @ 15 mls/hr ONCE ONCE IV ; Start 12/17/17 at 09:45; Stop 12/18/17 at 02:24; Status DC Dextrose 1,000 ml @ 80 mls/hr [id number] IV Last administered on 12/21/17at 08:45 ; Start 12/18/17 at 06:45; Stop 12/21/17 at 09:45; Status DC Lactated Ringer's 500 ml @ 500 mls/hr BOLUS ONCE IV Last administered on 12/18at 10:00; Start 12/18/17 at 10:00; Stop 12/18/17 at 10:59; Status DC Lactated Ringer's 500 ml @ 500 mls/hr BOLUS ONCE IV Last administered on 12/18at 13:05; Start 12/18/17 at 14:00; Stop 12/18/17 at 14:59; Status DC Water (Free Water) 300 ml Q4H G-TUBE Last administered on 12/21/17at 05:47; Start 12/18/17 at 18:00; Stop 12/25/17 at 14:15; Status DC Lactated Ringer's 500 ml @ 0 mls/hr BOLUS ONCE IV Last administered on at 18:00; Start 12/18/17 at 18:00; Stop 12/18/17 at 18:01; Status DC Lactated Ringer's 1,000 ml @ 999 mls/hr BOLUS ONCE IV Last administered on at 19:15; Start 12/18/17 at 19:15; Stop 12/18/17 at 20:15; Status DC Desmopressin Acetate (Ddavp Inj) 2 mcg Q12HR IV PUSH Last administered on at 21:48; Start 12/18/17 at 21:00; Stop 12/21/17 at 09:22; Status DC Lactated Ringer's 1,000 ml @ 500 mls/hr BOLUS ONCE IV Last administered on at 07:30; Start 12/19/17 at 06:30; Stop 12/19/17 at 08:29; Status DC Digoxin (Lanoxin) 0.125 mg DAILY PO Last administered on 12/25/17at 09:14; Start 12/20/17 at 09:00; Stop 12/25/17 at 14:15; Status DC Amiodarone HCl (Cordarone Inj) 150 mg STK-MED ONCE .ROUTE Last administered on 12/19/17at 15:54; Start 12/19/17 at 15:54; Stop 12/19/17 at 15:55; Status DC Amiodarone HCl 150 mg/Dextrose 100 ml @ 600 mls/hr STAT ONCE IV Last administered on 12/19/17at 16:15; Start 12/19/17 at 16:15; Stop 12/19/17 at 16:24 ; Status DC Digoxin (Lanoxin Inj) 0.25 mg ONCE ONCE IV PUSH Last administered on at 17:00; Start 12/19/17 at 17:00; Stop 12/19/17 at 17:13; Status DC Miscellaneous Information ([facility] Ordered Lab Info) SPECIFIC LAB TO BE ... ONCE ONCE .XX Last administered on 12/22/17at 09:45; Start 12/22/17 at 09:45; Stop 12/22/17 at 09:46; Status DC Acetaminophen (Tylenol) 650 mg Q6H PRN PO temp > 101.5 Last administered on at 17:11; Start 12/20/17 at 09:30; Stop 12/25/17 at 14:15; Status DC Metoprolol Tartrate (Lopressor) 12.5 mg Q8HR PO Last administered on 12/24/17at 22:59; Start 12/20/17 at 14:00; Stop 12/25/17 at 14:15; Status DC Miscellaneous Medication (ASP Crit: Other exception documentation) 1 UNSCH X1 PRN .XX PHARMACY DOCUMENTATION; Start 12/20/17 at 16:00; Stop 12/21/17 at 15:59 ; Status DC Miscellaneous Medication ([facility] Information) 1 UNSCH X1 PRN XX PHARMACY DOCUMENTATION; Start 12/20/17 at 16:00; Stop 12/21/17 at 15:59; Status DC Meropenem 1000 mg/ Sodium Chloride 100 ml @ 200 mls/hr Q12H IV Last administered on 12/25/17at 05:55; Start 12/20/17 at 17:00; Stop 12/25/17 at 08:34 ; Status DC Miscellaneous Medication ([facility] Information) 1 UNSCH X1 PRN XX PHARMACY DOCUMENTATION; Start 12/20/17 at 16:00; Stop 12/21/17 at 15:59; Status DC Dextrose 1,000 ml @ 0 mls/hr Q0M ONCE IV Last administered on 12/20/17at 17:39 ; Start 12/20/17 at 17:45; Stop 12/20/17 at 17:46; Status DC Albumin Human 500 ml @ 0 mls/hr ONCE ONCE IV Last administered on 12/20/17at 17 :40; Start 12/20/17 at 17:45; Stop 12/20/17 at 17:46; Status DC Vasopressin (Pitressin Inj) 40 units STK-MED ONCE .ROUTE ; Start 12/20/17 at 18: 50; Stop 12/20/17 at 18:51; Status DC Vasopressin 40 units/Dextrose 100 ml @ 3 mls/hr Q24H IV Last administered on at 20:49; Start 12/20/17 at 19:00; Stop 12/22/17 at 14:14; Status DC Albumin Human 500 ml @ 250 mls/hr ONCE ONCE IV Last administered on at 10:08; Start 12/21/17 at 10:00; Stop 12/21/17 at 11:59; Status DC Sodium Bicarbonate (Sodium Bicarbonate 8.4% Inj) 50 meq ONCE ONCE IV PUSH Last administered on 12/21/17at 10:08; Start 12/21/17 at 09:45; Stop 12/21/17 at 09:50; Status DC Lactated Ringer's 1,000 ml @ 999 mls/hr BOLUS ONCE IV ; Start 12/21/17 at 09: 45; Stop 12/21/17 at 10:04; Status DC Sodium Chloride 1,000 ml @ 500 mls/hr BOLUS ONCE IV Last administered on 12/21at 09:45; Start 12/21/17 at 09:45; Stop 12/21/17 at 11:44; Status DC Sodium Chloride 1,000 ml @ 50 mls/hr Q20H IV Last administered on 12/21/17at 09 :45; Start 12/21/17 at 09:45; Stop 12/21/17 at 12:34; Status DC Dextrose/Sodium Chloride 500 ml @ 50 mls/hr CONTINUOUS IV ; Start 12/21/17 at 12:45; Stop 12/21/17 at 22:55; Status DC Dextrose/Sodium Chloride 1,000 ml @ 80 mls/hr CONTINUOUS IV Last administered on 12/25/17at 03:00; Start 12/21/17 at 23:00; Stop 12/25/17 at 14:15; Status DC Sodium Bicarbonate (Sodium Bicarbonate 8.4% Inj) 100 meq ONCE ONCE IV PUSH Last administered on 12/22/17at 11:04; Start 12/22/17 at 10:30; Stop 12/22/17 at 10:34; Status DC Vancomycin HCl 1500 mg/Sodium Chloride 515 ml @ 250 mls/hr Q36H IV Last administered on 12/24/17at 08:58; Start 12/22/17 at 22:00; Stop 12/25/17 at 14:15 ; Status DC Miscellaneous Information ([facility] Ordered Lab Info) SPECIFIC LAB TO BE DRAWN:VANCOMYCIN TROUGH DATE TO... ONCE ONCE .XX ; Start 12/27/17 at 09:45; Stop 12/27/17 at 09:45; Status DC Fentanyl Citrate 250 ml @ 0.5 mls/hr TITRATE PRN IV SEDATION Last administered on 12/22/17at 14:37; Start 12/22/17 at 14:15; Stop 12/25/17 at 14:26 ; Status DC Miscellaneous Information ([facility] Change Order) 1 ONCE ONCE XX Last administered on 12/22/17at 14:30; Start 12/22/17 at 14:30; Stop 12/22/17 at 14:31 ; Status DC Albumin Human 500 ml @ 250 mls/hr ONCE ONCE IV Last administered on at 17:10; Start 12/22/17 at 16:30; Stop 12/22/17 at 18:29; Status DC Sodium Bicarbonate (Sodium Bicarbonate 8.4% Inj) 50 meq ONCE ONCE IV PUSH Last administered on 12/22/17at 17:10; Start 12/22/17 at 16:30; Stop 12/22/17 at 16:31; Status DC Meropenem 500 mg/ Sodium Chloride 100 ml @ 200 mls/hr Q12H IV ; Start 12/25/17 at 17:00; Stop 12/25/17 at 17:00; Status DC Albumin Human 500 ml @ 250 mls/hr ONCE ONCE IV Last administered on at 10:00; Start 12/25/17 at 10:00; Stop 12/25/17 at 11:59; Status DC Hydromorphone HCl (Dilaudid Pf Inj) 2 mg ONCE ONCE IV PUSH Last administered on 12/25/17at 16:22; Start 12/25/17 at 14:30; Stop 12/25/17 at 14:42; Status DC Lorazepam (Ativan Inj) 4 mg ONCE ONCE IV PUSH Last administered on 12/25/17at 16:23; Start 12/25/17 at 14:30; Stop 12/25/17 at 14:42; Status DC Hyoscyamine Sulfate (Levsin Inj) 0.25 mg ONCE ONCE IV PUSH Last administered on 12/25/17at 14:30; Start 12/25/17 at 14:30; Stop 12/25/17 at 14:42; Status DC Hydromorphone HCl (Dilaudid Pf Inj) 1 mg ONCE ONCE IV PUSH Last administered on 12/25/17at 16:23; Start 12/25/17 at 14:45; Stop 12/25/17 at 14:46; Status DC Lorazepam (Ativan Inj) 2 mg ONCE ONCE IV PUSH Last administered on 12/25/17at 16:23; Start 12/25/17 at 14:45; Stop 12/25/17 at 14:46; Status DC Hydromorphone HCl (Dilaudid Pf Inj) 1 mg Q30M PRN IV PUSH SEE LABEL COMMENTS; Start 12/25/17 at 15:00; Stop 12/25/17 at 16:15; Status DC Hydromorphone HCl (Dilaudid Pf Inj) 2 mg Q30M PRN IV PUSH SEE LABEL COMMENTS; Start 12/25/17 at 15:00; Stop 12/25/17 at 16:15; Status DC Lorazepam (Ativan Inj) 2 mg Q4HR IV PUSH Last administered on 12/25/17at 16:23; Start 12/25/17 at 16:00 Lorazepam (Ativan Inj) 1 mg Q1H PRN IV PUSH SEE LABEL COMMENTS; Start 12/25/17 at 15:00 Lorazepam (Ativan Inj) 2 mg Q1H PRN IV PUSH SEE LABEL COMMENTS; Start 12/25/17 at 15:00 Lorazepam (Ativan Inj) 2 mg Q15M PRN IV PUSH SEIZURES; Start 12/25/17 at 15:00 Hyoscyamine Sulfate (Levsin Inj) 0.25 mg Q4H PRN IV PUSH SECRETIONS Last administered on 12/25/17at 16:24; Start 12/25/17 at 15:00 Furosemide (Lasix Inj) 20 mg Q6H PRN IV PUSH Pulmonary Congestion; Start at 15:00 Fentanyl Citrate 250 ml @ 5 mls/hr TITRATE PRN IV SEDATION; Start 12/25/17 at 14:30; Stop 12/25/17 at 16:14; Status DC Fentanyl Citrate 250 ml @ 35 mls/hr TITRATE PRN IV SEDATION; Start 12/25/17 at 16:15 Lorazepam (Ativan Inj) 10 mg ONCE STAT IV PUSH Last administered on 12/25/17at 16:38; Start 12/25/17 at 16:10; Stop 12/25/17 at 16:22; Status DC Hydromorphone HCl (Dilaudid Pf Inj) 2 mg Q30M PRN IV PUSH SEE LABEL COMMENTS Last administered on 12/25/17at 16:25; Start 12/25/17 at 16:30 Hydromorphone HCl (Dilaudid Pf Inj) 3 mg Q30M PRN IV PUSH SEE LABEL COMMENTS; Start 12/25/17 at 16:30 (Jones Richter MD) Medical Decision Making MDM Remarks 77-year-old female Comminuted type III C2 fracture with mild retropulsion without significant canal compromise, extends into the lateral mass. Acute mildly to moderately displaced oblique fracture through the T6 and T7 vertebral bodies with approximately 7 mm retropulsion of these superior versus inferior T7 vertebral body with mild to moderate canal compromise. Acute T11 inferior vertebral fracture without retropulsion. Previous T12 kyphoplasty. (Greta Bobby) Plan Plan Remarks continue current care, critical care management, patient will need halo and possible decompression and stabilization of thoracic fracture once medically more stable We will defer further neurosurgical management upon Dr. Vee's return next week (Greta Bobby) Attending Statement She has massive traumatic injuries Upon arrival in the ICU patient was obviously noted to be in severe hemorrhagic shock she was immediately intubated, right chest tube was placed and triple- lumen was inserted Neurologically on arrival she could move her toes and feet bilateral and was paraplegic. After intubation patient was only lightly sedated considering the persistent hypotension throughout Hemodynamically patient remained stable throughout the night She required large amount of fluids blood and blood products including about 14 units of PRBC 2 units of FFP 1 unit of cryoprecipitate and 2 units of single donor platelets In addition to hemorrhagic shock patient was acidotic hypocoagulable with disseminated intravascular coagulation-DIC Despite told that would continue resuscitation throughout the night and when the retroperitoneal space finally filled up with blood this broke out in the right upper quadrant around the liver were patient is a fair amount of blood Patient was unstable all night and I was at the bedside most of it. She continued to bleed into the right psoas and pelvic area in the face of the fracture of the ileal wing and acetabulum She Remains on AC mode ventilation 80% FiO2 and 5 of PEEP Bilateral breath sounds Right chest tube drainage about 700 cc since the insertion now becoming more serosanguineous in nature There is no more active bleeding in the chest Renal function is impaired and due to severe hypovolemic shock this patient will likely develop acute tubular necrosis-ATN a In the last 24 hours patient has been gradually stabilizing Remains intubated on the ventilator sedated with small dose of Versed in face of hemodynamic instability Hemodynamically patient is slowly stabilizing Hemoglobin stable Patient is breathing over the ventilator considering the resolving metabolic acidosis Still on small amount of bicarbonate drip considering the residual effects of the hemorrhagic shock Lactic acid is elevated At this point needless to say, patient is not a candidate for any type of neurosurgical or orthopedic procedure If her condition improves she will go for surgery with stabilization by Dr Vee next week The exam, history, and the medical decision-making described in the above note were completed with the assistance of the mid-level provider. I reviewed and agree with the findings presented. I attest that I had a [id number] encounter with the patient on the same day, and personally performed and documented my assessment and findings in the medical record. (Jones Richter MD) Greta Bobby Dec 21, 2017 15:05 Jones Richter MD Dec 25, 2017 17:56
--- NOTE | 2017-12-21 16:12 | HHI.HCPN ---
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 Dontfraid == Tracheostomy is canceled for now. == Some family members remain ambivalent regarding goals so we may be having another family meeting on Sunday. == Would continue aggressive therapies short of resuscitation for now. == Palliative care will continue to follow to assist with symptom management and to further clarify goals of medical treatment as the clinical course evolves. . Time Spent Total Floor Time (mins): 40 (Total time included chart review, pt exam, discussion with Dr. Rahman regarding prognosis, above referenced conversation with daughter. ) Face to Face Time (mins): 10 >50% Counseling/Coord of Care: Yes Attestation To help prompt me to consider important information that might be impacting today's encounter and assessment, information from prior notes written by myself or my colleagues may have been "brought forward" into today's note. My signature on this note, however, is an attestation that I personally performed the exam, history, and/or decision-making noted today, and, unless otherwise indicated, the interactions with patient, family, and staff as well as the review of records all occurred today. I also attest that the listed assessment and stated plan reflect my best clinical judgment today based on the combination of historical information, prior notes, and today's exam/ interactions. When time spent is documented, it refers only to time spent today by the signer, or if indicated, combined time spent today by collaborating physician/nurse practitioner. . Jorge Luis Vincent MD Dec 21, 2017 16:12
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
[2017-12-21 20:47] LABS: BICARBONATE 10.6 MEQ/L (21.0-32.0); CALCIUM 6.9 MG/DL (8.5-10.1); CREATININE 1.64 MG/DL (0.50-1.00)
[2017-12-21] MEDS: VASOPRESSIN 40 U/D5W 100 ML Shock/septic shock, do NOT titrate until taper off IV SCH ×2 (20:49)
[2017-12-21 21:30] LABS: CALCIUM-PROTEIN CORRECTED 8.9 MG/DL (8.5-10.1); TOTAL PROTEIN 3.6 GM/DL (6.4-8.2)
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
[2017-12-21] MEDS: DEXT 5%-NACL 0.45% 1000 ML INJ 1,000 ML IV SCH (22:58)
[2017-12-21] MEDS: MORPHINE SULFATE 4 MG/ML INJ IV PUSH PRN (23:25)
[2017-12-22] VITALS (18 sets, daily range): BP systolic 85–107; BP diastolic 48–56; PULSE 68–121; RESP 30–35; TEMP 97–97.7; O2SAT 94–97
[2017-12-22] MEDS: INSULIN ASPART SUPPLEMENTAL SCALE SQ SCH ×5 (01:00→23:19)
[2017-12-22 01:39] LABS: CALCIUM 7.3 MG/DL (8.5-10.1); CREATININE 1.62 MG/DL (0.50-1.00)
[2017-12-22 02:25] LABS: CALCIUM-PROTEIN CORRECTED 8.7 MG/DL (8.5-10.1); TOTAL PROTEIN 4.6 GM/DL (6.4-8.2)
[2017-12-22] MEDS: POTASSIUM CHLORIDE 25 MEQ EFFERVESCENT TAB PO PRN (02:52)
[2017-12-22] MEDS: CHLORHEXIDINE GLUCONATE 2 % 1 PACK (2 CLOTHS) TOP SCH (04:00)
[2017-12-22] MEDS: METOPROLOL TARTRATE 25 MG TAB PO SCH ×3 (05:24→19:32)
[2017-12-22] MEDS: MEROPENEM INJ 1,000 MG in SODIUM CHLORIDE 0.9% INJ 100 ML IV SCH ×2 (05:24→17:11)
--- NOTE | 2017-12-22 05:28 | RADRPT ---
EXAM DATE: 12/22/2017 4:56 AM EDT AGE/SEX: 77 years / Female INDICATIONS: Short of breath. CLINICAL DATA: This is the patient's subsequent encounter. Patient reports that signs and symptoms h ave been present for 1 week and indicates a pain score of Nonresponsive. MEDICAL/SURGICAL HISTORY: Non-responsive. Non-responsive. COMPARISON: [facility] [place], CHEST SINGLE AP, 12/21/2017. . FINDINGS: A single AP semierect portable view of the chest was obtained and again demonstrates an endotracheal tube in place with the tip 3 cm above the gigi. The nasogastric tube and right-sided chest tube rem ain in place with no pneumothorax. The study is mid inspiratory with mild hazy opacity and no conflue nt infiltrates. Left costophrenic angle is blunted. CONCLUSION: No significant change. Electronically signed by: Rommel Ordonez MD 12/22/2017 5:27 AM EDT
[2017-12-22 05:30] LABS: AUTOMATED NEUTROPHIL # 17.8 TH/MM3 (1.8-7.7); BASOPHIL % 0.2 % (0.0-2.0); EOSINOPHIL % 0.1 % (0.0-4.0); HEMATOCRIT 33.7 % (35.0-46.0); HEMOGLOBIN 11.4 GM/DL (11.6-15.3); LYMPH % 2.6 % (9.0-44.0); LYMPHOCYTE # 0.5 TH/MM3 (1.0-4.8); MEAN CELL VOLUME 89.3 FL (80.0-100.0); MEAN CORPUSCULAR HEMOGLOBIN 30.4 PG (27.0-34.0); MEAN PLATELET VOLUME 13.2 FL (7.0-11.0); MONO % 1.8 % (0.0-8.0); MONOCYTE # 0.3 TH/MM3 (0-0.9); NEUT % 95.3 % (16.0-70.0); PLATELET COUNT 43 TH/MM3 (150-450); RED BLOOD COUNT 3.77 MIL/MM3 (4.00-5.30); RED CELL DISTRIBUTION WIDTH 16.6 % (11.6-17.2); WHITE BLOOD COUNT 18.7 TH/MM3 (4.0-11.0)
[2017-12-22 06:01] LABS: ALBUMIN 1.9 GM/DL (3.4-5.0); BICARBONATE 10.9 MEQ/L (21.0-32.0); CALCIUM 7.2 MG/DL (8.5-10.1); CALCIUM-PROTEIN CORRECTED 8.6 MG/DL (8.5-10.1); CREATININE 1.7 MG/DL (0.50-1.00); MAGNESIUM 3.5 MG/DL (1.5-2.5); TOTAL BILIRUBIN ADULT 9.9 MG/DL (0.2-1.0); TOTAL PROTEIN 4.6 GM/DL (6.4-8.2)
[2017-12-22] MEDS: CHLORHEXIDINE 0.12% (ORAL KIT) 15 ML CUP MT SCH ×2 (08:00→20:12)
[2017-12-22] MEDS: DIGOXIN 0.125 MG TAB PO SCH (08:18)
[2017-12-22] MEDS: FAMOTIDINE 20 MG TAB PO SCH ×2 (08:18→20:13)
[2017-12-22] MEDS: AMIODARONE 200 MG TAB PO SCH ×2 (08:18→20:13)
[2017-12-22] MEDS: MAGNESIUM HYDROXIDE SUSP 30 ML CUP PO SCH ×2 (08:19→19:31)
[2017-12-22] MEDS: DOCUSATE SODIUM 50 MG/SENNA 8.6 MG TAB PO SCH ×2 (08:19→19:31)
[2017-12-22 09:32] LABS: ACANTHOCYTES 1+ (NORMAL); BANDS 14 % (0-6); CORRECTED NUCLEATED RBC 5 /100 WBC (0-0); LYMPHOCYTES 1 % (9-44); MONOCYTES 1 % (0-8); NEUTROPHIL # MANUAL DIFF 18.3 TH/MM3 (1.8-7.7); NUCLEATED RED BLOOD CELL 5 (0-0); POLYS (SEG NEUTROPHILS) 84 % (16-70); TOXIC GRANULATION 1+ (NORMAL); TOXIC VACUOLATION PRESENT (NONE SEEN)
[2017-12-22 09:33] LABS: OVALOCYTES 1+ (NORMAL)
[2017-12-22] MEDS ORDERED: PHARMACY ORDERED LAB ONE (09:45)
[2017-12-22] MEDS ORDERED: SODIUM BICARBONATE 8.4% INJ 50 MEQ/50 ML SYR IV PUSH ONE ×2 (10:30→16:30)
[2017-12-22 10:43] LABS: ALBUMIN 1.6 GM/DL (3.4-5.0); BICARBONATE 10.4 MEQ/L (21.0-32.0); CALCIUM 7.3 MG/DL (8.5-10.1); CREATININE 1.68 MG/DL (0.50-1.00); TOTAL BILIRUBIN ADULT 9.9 MG/DL (0.2-1.0); TOTAL PROTEIN 4.2 GM/DL (6.4-8.2)
[2017-12-22] MEDS: DEXT 5%-NACL 0.45% 1000 ML INJ 1,000 ML IV SCH (11:04)
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
[2017-12-22] MEDS ORDERED: fentaNYL DRIP 250 ML IV PRN (14:15)
[2017-12-22] MEDS ORDERED: RASS Change Order XX ONE (14:30)
[2017-12-22] MEDS ORDERED: ALBUMIN 5% INJ 500 ML IV ONE (16:30)
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
[2017-12-22] MEDS: VANCOMYCIN INJ 1,500 MG in SODIUM CHLORID 0.9% 500 ML INJ 500 ML IV SCH (20:13)
[2017-12-23] VITALS (18 sets, daily range): BP systolic 84–123; BP diastolic 46–59; PULSE 62–118; RESP 30–34; TEMP 96.6–99; O2SAT 94–97
[2017-12-23] MEDS: CHLORHEXIDINE GLUCONATE 2 % 1 PACK (2 CLOTHS) TOP SCH (02:58)
[2017-12-23] MEDS: METOPROLOL TARTRATE 25 MG TAB PO SCH ×3 (03:47→20:43)
--- NOTE | 2017-12-23 04:09 | RADRPT ---
EXAM DATE: 12/23/2017 4:04 AM EDT AGE/SEX: 77 years / Female INDICATIONS: Short of breath. CLINICAL DATA: This is the patient's subsequent encounter. Patient reports that signs and symptoms h ave been present for 1 week and indicates a pain score of Nonresponsive. MEDICAL/SURGICAL HISTORY: Non-responsive. Non-responsive. [place] [facility] [place]. . FINDINGS: A single AP semierect view of the chest was obtained and again demonstrates the endotracheal tube in place with the tip 3 cm above the iggi. The nasogastric tube and right-sided chest tube remain in p lace with no pneumothorax. There are old healed right-sided rib fractures. There has been interval im provement in the hazy opacity in both lungs with only mild residual. The heart size remains mildly en larged. CONCLUSION: 1. Start numbering interval improvement in bilateral hazy opacity with mild residual. 2. Right-sided chest tube remains in place with no pneumothorax. Electronically signed by: Rommel Ordonez MD 12/23/2017 4:07 AM EDT
[2017-12-23 04:55] LABS: AUTOMATED NEUTROPHIL # 15.1 TH/MM3 (1.8-7.7); BASOPHIL % 0.1 % (0.0-2.0); EOSINOPHIL % 0.1 % (0.0-4.0); HEMATOCRIT 27.7 % (35.0-46.0); HEMOGLOBIN 9.5 GM/DL (11.6-15.3); LYMPH % 3.1 % (9.0-44.0); LYMPHOCYTE # 0.5 TH/MM3 (1.0-4.8); MEAN CORPUSCULAR HGB CONC 34.5 % (32.0-36.0); MEAN PLATELET VOLUME 13.5 FL (7.0-11.0); MONOCYTE # 0.3 TH/MM3 (0-0.9); NEUT % 94.7 % (16.0-70.0); PLATELET COUNT 44 TH/MM3 (150-450); RED BLOOD COUNT 3.08 MIL/MM3 (4.00-5.30); RED CELL DISTRIBUTION WIDTH 16.4 % (11.6-17.2)
[2017-12-23] MEDS: DEXT 5%-NACL 0.45% 1000 ML INJ 1,000 ML IV SCH ×2 (05:02→20:48)
[2017-12-23] MEDS: MEROPENEM INJ 1,000 MG in SODIUM CHLORIDE 0.9% INJ 100 ML IV SCH ×2 (05:02→16:42)
[2017-12-23] MEDS: INSULIN ASPART SUPPLEMENTAL SCALE SQ SCH ×3 (05:14→18:00)
[2017-12-23 05:17] LABS: ALBUMIN 1.7 GM/DL (3.4-5.0); BICARBONATE 13.1 MEQ/L (21.0-32.0); CREATININE 1.75 MG/DL (0.50-1.00); MAGNESIUM 3.5 MG/DL (1.5-2.5)
[2017-12-23 05:21] LABS: CALCIUM-PROTEIN CORRECTED 8.8 MG/DL (8.5-10.1); TOTAL BILIRUBIN ADULT 13.2 MG/DL (0.2-1.0); TOTAL PROTEIN 3.9 GM/DL (6.4-8.2)
[2017-12-23] MEDS: DEXTROSE 50% IN WATER 50 ML SYRINGE IV PUSH PRN (05:51)
[2017-12-23] MEDS: POTASSIUM CHLORIDE 25 MEQ EFFERVESCENT TAB PO PRN (05:51)
[2017-12-23 05:58] LABS: ACANTHOCYTES OCC (NORMAL); BANDS 5 % (0-6); BURR CELLS 1+ (NORMAL); CORRECTED NUCLEATED RBC 12 /100 WBC (0-0); DOHLE BODIES PRESENT (NONE SEEN); LYMPHOCYTES 1 % (9-44); METAMYELOCYTES 1 % (0-1); MONOCYTES 1 % (0-8); NEUTROPHIL # MANUAL DIFF 15.7 TH/MM3 (1.8-7.7); NUCLEATED RED BLOOD CELL 12 (0-0); POLYS (SEG NEUTROPHILS) 92 % (16-70)
[2017-12-23 05:59] LABS: OVALOCYTES 1+ (NORMAL); TOXIC GRANULATION 1+ (NORMAL)
[2017-12-23] MEDS: MAGNESIUM HYDROXIDE SUSP 30 ML CUP PO SCH ×2 (07:53→21:00)
[2017-12-23] MEDS: AMIODARONE 200 MG TAB PO SCH ×2 (07:53→20:43)
[2017-12-23] MEDS: DIGOXIN 0.125 MG TAB PO SCH (07:53)
[2017-12-23] MEDS: FAMOTIDINE 20 MG TAB PO SCH ×2 (07:53→20:43)
[2017-12-23] MEDS: CHLORHEXIDINE 0.12% (ORAL KIT) 15 ML CUP MT SCH ×2 (07:53→20:43)
[2017-12-23] MEDS: DOCUSATE SODIUM 50 MG/SENNA 8.6 MG TAB PO SCH ×2 (07:53→20:43)
--- NOTE | 2017-12-23 11:17 | HHI.NSPN ---
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 10:58; Status DC Vasopressin 40 units/Dextrose 100 ml @ 1.5 mls/hr TITRATE PRN IV Blood Pressure Management Last administered on 12/17/17at 06:07; Start 12/14/17 at 12: 00; Stop 12/20/17 at 19:02; Status DC Amiodarone HCl 150 mg/Dextrose 100 ml @ 600 mls/hr NOW ONCE IV Last administered on 12/14/17at 12:18; Start 12/14/17 at 11:30; Stop 12/14/17 at 11:39 ; Status DC Sodium Bicarbonate (Sodium Bicarbonate 8.4% Inj) 50 meq STK-MED ONCE IV ; Start 12/12/17 at 15:59; Stop 12/14/17 at 16:00; Status DC Amiodarone HCl 450 mg/Sodium Chloride 250 ml @ 33.33 mls/ hr TITRATE PRN IV Per Protocol Last administered on 12/16/17at 13:48; Start 12/14/17 at 18:45; Stop 12/17/17 at 10:18; Status DC Esmolol HCl/ Sodium Chloride 250 ml @ 28.65 mls/ hr TITRATE PRN IV Blood Pressure Management; Start 12/14/17 at 20:30; Stop 12/15/17 at 09:41; Status DC Esmolol HCl (Brevibloc Bolus Inj) 96 mg BOLUS ONCE IV PUSH ; Start 12/14/17 at 20:30; Stop 12/15/17 at 09:41; Status DC Amiodarone HCl 150 mg/Dextrose 100 ml @ 600 mls/hr NOW ONCE IV Last administered on 12/14/17at 22:00; Start 12/14/17 at 21:45; Stop 12/14/17 at 21:54 ; Status DC Water (Free Water) 200 ml Q6HR G-TUBE Last administered on 12/18/17at 11:18; Start 12/15/17 at 12:00; Stop 12/18/17 at 17:51; Status DC Atenolol (Tenormin) 12.5 mg Q12HR PO Last administered on 12/15/17at 20:14; Start 12/15/17 at 21:00; Stop 12/16/17 at 08:58; Status DC Furosemide (Lasix Inj) 20 mg ONCE ONCE IV PUSH Last administered on 12/15/17at 10:19; Start 12/15/17 at 09:45; Stop 12/15/17 at 09:47; Status DC Potassium Bicarb/ Potassium Chloride (K-Lyte Cl Eff) 25 meq ONCE ONCE PO Last administered on 12/15/17at 10:18; Start 12/15/17 at 10:00; Stop 12/15/17 at 10:16; Status DC Atenolol (Tenormin) 12.5 mg Q12HR PO Last administered on 12/16/17at 09:02; Start 12/16/17 at 09:00; Stop 12/20/17 at 11:23; Status DC Miscellaneous (Pill Splitter) 1 ea UNSCH PRN OTHER SEE LABEL COMMENTS; Start at 09:00; Stop 12/25/17 at 14:15; Status DC Digoxin (Lanoxin Inj) 0.125 mg DAILY IV PUSH Last administered on 12/19/17at 07: 54; Start 12/17/17 at 09:00; Stop 12/19/17 at 13:52; Status DC Pharmacy Profile Note 0 ml @ 0 mls/hr UNSCH OTHER ; Start 12/16/17 at 16:00; Stop 12/25/17 at 14:15; Status DC Piperacillin Sod/ Tazobactam Sod 50 ml @ 100 mls/hr Q6H IV Last administered on 12/17/17at 05:21; Start 12/16/17 at 17:00; Stop 12/17/17 at 08:36; Status DC Vancomycin HCl 1500 mg/Sodium Chloride 515 ml @ 257.5 mls/ hr ONCE ONCE IV Last administered on 12/16/17at 16:53; Start 12/16/17 at 17:00; Stop 12/16/17 at 18:59; Status DC Albumin Human 500 ml @ 100 mls/hr ONCE ONCE IV Last administered on at 16:55; Start 12/16/17 at 17:00; Stop 12/16/17 at 21:59; Status DC Sodium Chloride 1,000 ml @ 50 mls/hr Q20H IV Last administered on 12/18/17at 04 :06; Start 12/17/17 at 06:00; Stop 12/18/17 at 06:36; Status DC Piperacillin Sod/ Tazobactam Sod 50 ml @ 100 mls/hr Q6H IV Last administered on 12/20/17at 09:52; Start 12/17/17 at 11:00; Stop 12/20/17 at 15:51; Status DC Vancomycin HCl 1250 mg/Sodium Chloride 262.5 ml @ 250 mls/hr Q24H IV Last administered on 12/21/17at 10:08; Start 12/17/17 at 10:00; Stop 12/22/17 at 11:17 ; Status DC Miscellaneous Information ([facility] Ordered Lab Info) SPECIFIC LAB TO BE DRAWN:VANCO TROUGH DATE TO... ONCE ONCE .XX ; Start 12/20/17 at 09:45; Stop at 09:45; Status DC Sodium Chloride 250 ml @ 15 mls/hr ONCE ONCE IV ; Start 12/17/17 at 09:45; Stop 12/18/17 at 02:24; Status DC Dextrose 1,000 ml @ 80 mls/hr [id number] IV Last administered on 12/21/17at 08:45 ; Start 12/18/17 at 06:45; Stop 12/21/17 at 09:45; Status DC Lactated Ringer's 500 ml @ 500 mls/hr BOLUS ONCE IV Last administered on 12/18at 10:00; Start 12/18/17 at 10:00; Stop 12/18/17 at 10:59; Status DC Lactated Ringer's 500 ml @ 500 mls/hr BOLUS ONCE IV Last administered on 12/18at 13:05; Start 12/18/17 at 14:00; Stop 12/18/17 at 14:59; Status DC Water (Free Water) 300 ml Q4H G-TUBE Last administered on 12/21/17at 05:47; Start 12/18/17 at 18:00; Stop 12/25/17 at 14:15; Status DC Lactated Ringer's 500 ml @ 0 mls/hr BOLUS ONCE IV Last administered on at 18:00; Start 12/18/17 at 18:00; Stop 12/18/17 at 18:01; Status DC Lactated Ringer's 1,000 ml @ 999 mls/hr BOLUS ONCE IV Last administered on at 19:15; Start 12/18/17 at 19:15; Stop 12/18/17 at 20:15; Status DC Desmopressin Acetate (Ddavp Inj) 2 mcg Q12HR IV PUSH Last administered on at 21:48; Start 12/18/17 at 21:00; Stop 12/21/17 at 09:22; Status DC Lactated Ringer's 1,000 ml @ 500 mls/hr BOLUS ONCE IV Last administered on at 07:30; Start 12/19/17 at 06:30; Stop 12/19/17 at 08:29; Status DC Digoxin (Lanoxin) 0.125 mg DAILY PO Last administered on 12/25/17at 09:14; Start 12/20/17 at 09:00; Stop 12/25/17 at 14:15; Status DC Amiodarone HCl (Cordarone Inj) 150 mg STK-MED ONCE .ROUTE Last administered on 12/19/17at 15:54; Start 12/19/17 at 15:54; Stop 12/19/17 at 15:55; Status DC Amiodarone HCl 150 mg/Dextrose 100 ml @ 600 mls/hr STAT ONCE IV Last administered on 12/19/17at 16:15; Start 12/19/17 at 16:15; Stop 12/19/17 at 16:24 ; Status DC Digoxin (Lanoxin Inj) 0.25 mg ONCE ONCE IV PUSH Last administered on at 17:00; Start 12/19/17 at 17:00; Stop 12/19/17 at 17:13; Status DC Miscellaneous Information ([facility] Ordered Lab Info) SPECIFIC LAB TO BE .. ONCE ONCE .XX Last administered on 12/22/17at 09:45; Start 12/22/17 at 09:45; Stop 12/22/17 at 09:46; Status DC Acetaminophen (Tylenol) 650 mg Q6H PRN PO temp > 101.5 Last administered on at 17:11; Start 12/20/17 at 09:30; Stop 12/25/17 at 14:15; Status DC Metoprolol Tartrate (Lopressor) 12.5 mg Q8HR PO Last administered on 12/24/17at 22:59; Start 12/20/17 at 14:00; Stop 12/25/17 at 14:15; Status DC Miscellaneous Medication (ASP Crit: Other exception documentation) 1 UNSCH X1 PRN .XX PHARMACY DOCUMENTATION; Start 12/20/17 at 16:00; Stop 12/21/17 at 15:59 ; Status DC Miscellaneous Medication ([facility] Information) 1 UNSCH X1 PRN XX PHARMACY DOCUMENTATION; Start 12/20/17 at 16:00; Stop 12/21/17 at 15:59; Status DC Meropenem 1000 mg/ Sodium Chloride 100 ml @ 200 mls/hr Q12H IV Last administered on 12/25/17at 05:55; Start 12/20/17 at 17:00; Stop 12/25/17 at 08:34 ; Status DC Miscellaneous Medication ([facility] Information) 1 UNSCH X1 PRN XX PHARMACY DOCUMENTATION; Start 12/20/17 at 16:00; Stop 12/21/17 at 15:59; Status DC Dextrose 1,000 ml @ 0 mls/hr Q0M ONCE IV Last administered on 12/20/17at 17:39 ; Start 12/20/17 at 17:45; Stop 12/20/17 at 17:46; Status DC Albumin Human 500 ml @ 0 mls/hr ONCE ONCE IV Last administered on 12/20/17at 17 :40; Start 12/20/17 at 17:45; Stop 12/20/17 at 17:46; Status DC Vasopressin (Pitressin Inj) 40 units STK-MED ONCE .ROUTE ; Start 12/20/17 at 18: 50; Stop 12/20/17 at 18:51; Status DC Vasopressin 40 units/Dextrose 100 ml @ 3 mls/hr Q24H IV Last administered on at 20:49; Start 12/20/17 at 19:00; Stop 12/22/17 at 14:14; Status DC Albumin Human 500 ml @ 250 mls/hr ONCE ONCE IV Last administered on at 10:08; Start 12/21/17 at 10:00; Stop 12/21/17 at 11:59; Status DC Sodium Bicarbonate (Sodium Bicarbonate 8.4% Inj) 50 meq ONCE ONCE IV PUSH Last administered on 12/21/17at 10:08; Start 12/21/17 at 09:45; Stop 12/21/17 at 09:50; Status DC Lactated Ringer's 1,000 ml @ 999 mls/hr BOLUS ONCE IV ; Start 12/21/17 at 09: 45; Stop 12/21/17 at 10:04; Status DC Sodium Chloride 1,000 ml @ 500 mls/hr BOLUS ONCE IV Last administered on 12/21at 09:45; Start 12/21/17 at 09:45; Stop 12/21/17 at 11:44; Status DC Sodium Chloride 1,000 ml @ 50 mls/hr Q20H IV Last administered on 12/21/17at 09 :45; Start 12/21/17 at 09:45; Stop 12/21/17 at 12:34; Status DC Dextrose/Sodium Chloride 500 ml @ 50 mls/hr CONTINUOUS IV ; Start 12/21/17 at 12:45; Stop 12/21/17 at 22:55; Status DC Dextrose/Sodium Chloride 1,000 ml @ 80 mls/hr CONTINUOUS IV Last administered on 12/25/17at 03:00; Start 12/21/17 at 23:00; Stop 12/25/17 at 14:15; Status DC Sodium Bicarbonate (Sodium Bicarbonate 8.4% Inj) 100 meq ONCE ONCE IV PUSH Last administered on 12/22/17at 11:04; Start 12/22/17 at 10:30; Stop 12/22/17 at 10:34; Status DC Vancomycin HCl 1500 mg/Sodium Chloride 515 ml @ 250 mls/hr Q36H IV Last administered on 12/24/17at 08:58; Start 12/22/17 at 22:00; Stop 12/25/17 at 14:15 ; Status DC Miscellaneous Information ([facility] Ordered Lab Info) SPECIFIC LAB TO BE DRAWN:VANCOMYCIN TROUGH DATE TO... ONCE ONCE .XX ; Start 12/27/17 at 09:45; Stop 12/27/17 at 09:45; Status DC Fentanyl Citrate 250 ml @ 0.5 mls/hr TITRATE PRN IV SEDATION Last administered on 12/22/17at 14:37; Start 12/22/17 at 14:15; Stop 12/25/17 at 14:26 ; Status DC Miscellaneous Information ([facility] Change Order) 1 ONCE ONCE XX Last administered on 12/22/17at 14:30; Start 12/22/17 at 14:30; Stop 12/22/17 at 14:31 ; Status DC Albumin Human 500 ml @ 250 mls/hr ONCE ONCE IV Last administered on at 17:10; Start 12/22/17 at 16:30; Stop 12/22/17 at 18:29; Status DC Sodium Bicarbonate (Sodium Bicarbonate 8.4% Inj) 50 meq ONCE ONCE IV PUSH Last administered on 12/22/17at 17:10; Start 12/22/17 at 16:30; Stop 12/22/17 at 16:31; Status DC Meropenem 500 mg/ Sodium Chloride 100 ml @ 200 mls/hr Q12H IV ; Start 12/25/17 at 17:00; Stop 12/25/17 at 17:00; Status DC Albumin Human 500 ml @ 250 mls/hr ONCE ONCE IV Last administered on at 10:00; Start 12/25/17 at 10:00; Stop 12/25/17 at 11:59; Status DC Hydromorphone HCl (Dilaudid Pf Inj) 2 mg ONCE ONCE IV PUSH Last administered on 12/25/17at 16:22; Start 12/25/17 at 14:30; Stop 12/25/17 at 14:42; Status DC Lorazepam (Ativan Inj) 4 mg ONCE ONCE IV PUSH Last administered on 12/25/17at 16:23; Start 12/25/17 at 14:30; Stop 12/25/17 at 14:42; Status DC Hyoscyamine Sulfate (Levsin Inj) 0.25 mg ONCE ONCE IV PUSH Last administered on 12/25/17at 14:30; Start 12/25/17 at 14:30; Stop 12/25/17 at 14:42; Status DC Hydromorphone HCl (Dilaudid Pf Inj) 1 mg ONCE ONCE IV PUSH Last administered on 12/25/17at 16:23; Start 12/25/17 at 14:45; Stop 12/25/17 at 14:46; Status DC Lorazepam (Ativan Inj) 2 mg ONCE ONCE IV PUSH Last administered on 12/25/17at 16:23; Start 12/25/17 at 14:45; Stop 12/25/17 at 14:46; Status DC Hydromorphone HCl (Dilaudid Pf Inj) 1 mg Q30M PRN IV PUSH SEE LABEL COMMENTS; Start 12/25/17 at 15:00; Stop 12/25/17 at 16:15; Status DC Hydromorphone HCl (Dilaudid Pf Inj) 2 mg Q30M PRN IV PUSH SEE LABEL COMMENTS; Start 12/25/17 at 15:00; Stop 12/25/17 at 16:15; Status DC Lorazepam (Ativan Inj) 2 mg Q4HR IV PUSH Last administered on 12/25/17at 16:23; Start 12/25/17 at 16:00 Lorazepam (Ativan Inj) 1 mg Q1H PRN IV PUSH SEE LABEL COMMENTS; Start 12/25/17 at 15:00 Lorazepam (Ativan Inj) 2 mg Q1H PRN IV PUSH SEE LABEL COMMENTS; Start 12/25/17 at 15:00 Lorazepam (Ativan Inj) 2 mg Q15M PRN IV PUSH SEIZURES; Start 12/25/17 at 15:00 Hyoscyamine Sulfate (Levsin Inj) 0.25 mg Q4H PRN IV PUSH SECRETIONS Last administered on 12/25/17at 16:24; Start 6/26/18 at 15:00 Furosemide (Lasix Inj) 20 mg Q6H PRN IV PUSH Pulmonary Congestion; Start at 15:00 Fentanyl Citrate 250 ml @ 5 mls/hr TITRATE PRN IV SEDATION; Start 12/25/17 at 14:30; Stop 12/25/17 at 16:14; Status DC Fentanyl Citrate 250 ml @ 35 mls/hr TITRATE PRN IV SEDATION; Start 12/25/17 at 16:15 Lorazepam (Ativan Inj) 10 mg ONCE STAT IV PUSH Last administered on 12/25/17at 16:38; Start 12/25/17 at 16:10; Stop 12/25/17 at 16:22; Status DC Hydromorphone HCl (Dilaudid Pf Inj) 2 mg Q30M PRN IV PUSH SEE LABEL COMMENTS Last administered on 12/25/17at 16:25; Start 12/25/17 at 16:30 Hydromorphone HCl (Dilaudid Pf Inj) 3 mg Q30M PRN IV PUSH SEE LABEL COMMENTS; Start 12/25/17 at 16:30 (Jones Richter MD) Medical Decision Making MDM Remarks 77-year-old female Comminuted type III C2 fracture with mild retropulsion without significant canal compromise, extends into the lateral mass. Acute mildly to moderately displaced oblique fracture through the T6 and T7 vertebral bodies with approximately 7 mm retropulsion of these superior versus inferior T7 vertebral body with mild to moderate canal compromise. Acute T11 inferior vertebral fracture without retropulsion. Previous T12 kyphoplasty. (Greta Bobby) Plan Plan Remarks continue current care, cont neuro checks maintain cervical collar critical care management per trauma team patient will need halo and possible decompression and stabilization of thoracic fracture once medically more stable We will defer further neurosurgical management upon Dr. Vee's return Sunday (Greta Bobby) Attending Statement Ms Brewster remains critically ill MOF liver,renal,cardiac,pulmonary,[employer] septicemia BD Very high compensating with overbreathing WBC left shift She remains on multiorgan failure GI renal cardiac and respiratory sustains failed Patient family wished partial DNR and does not wish to proceed with acceleration of the care-decision was reached after discussion with trauma surgery and palliative care His base deficit is -18 her CO2 is 18, she is clearly overbreathing the brand There is also high NG tube output Neurologically on arrival she could move her toes and feet bilateral and was paraplegic. After intubation patient was only lightly sedated considering the persistent hypotension throughout Hemodynamically patient remained stable throughout the night She required large amount of fluids blood and blood products including about 14 units of PRBC 2 units of FFP 1 unit of cryoprecipitate and 2 units of single donor platelets In addition to hemorrhagic shock patient was acidotic hypocoagulable with disseminated intravascular coagulation-DIC Despite told that would continue resuscitation throughout the night and when the retroperitoneal space finally filled up with blood this broke out in the right upper quadrant around the liver were patient is a fair amount of blood Patient was unstable all night and I was at the bedside most of it. She continued to bleed into the right psoas and pelvic area in the face of the fracture of the ileal wing and acetabulum She Remains on AC mode ventilation 80% FiO2 and 5 of PEEP Bilateral breath sounds Right chest tube drainage about 700 cc since the insertion now becoming more serosanguineous in nature There is no more active bleeding in the chest Renal function is impaired and due to severe hypovolemic shock this patient will likely develop acute tubular necrosis-ATN a In the last 24 hours patient has been gradually stabilizing Remains intubated on the ventilator sedated with small dose of Versed in face of hemodynamic instability Hemodynamically patient is slowly stabilizing Hemoglobin stable Patient is breathing over the ventilator considering the resolving metabolic acidosis Still on small amount of bicarbonate drip considering the residual effects of the hemorrhagic shock Lactic acid is elevated At this point needless to say, patient is not a candidate for any type of neurosurgical or orthopedic procedure If her condition improves she will go for surgery with stabilization by Dr Vee next week The exam, history, and the medical decision-making described in the above note were completed with the assistance of the mid-level provider. I reviewed and agree with the findings presented. I attest that I had a [id number] encounter with the patient on the same day, and personally performed and documented my assessment and findings in the medical record. (Jones Richter MD) Greta Bobby Dec 23, 2017 11:17 Jones Richter MD Dec 25, 2017 18:07
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
[2017-12-24] VITALS (15 sets, daily range): BP systolic 84–117; BP diastolic 39–58; PULSE 60–77; RESP 23–35; TEMP 97.2–97.7; O2SAT 93–97
[2017-12-24] MEDS: CHLORHEXIDINE GLUCONATE 2 % 1 PACK (2 CLOTHS) TOP SCH (04:00)
[2017-12-24] MEDS: MEROPENEM INJ 1,000 MG in SODIUM CHLORIDE 0.9% INJ 100 ML IV SCH ×2 (04:18→17:00)
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
[2017-12-24] MEDS: INSULIN ASPART SUPPLEMENTAL SCALE SQ SCH ×5 (06:00→23:44)
[2017-12-24] MEDS: METOPROLOL TARTRATE 25 MG TAB PO SCH ×3 (06:00→22:59)
[2017-12-24 06:25] LABS: AUTOMATED NEUTROPHIL # 11.4 TH/MM3 (1.8-7.7); BASOPHIL % 0.3 % (0.0-2.0); EOSINOPHIL % 0.1 % (0.0-4.0); HEMATOCRIT 29.3 % (35.0-46.0); HEMOGLOBIN 9.7 GM/DL (11.6-15.3); LYMPH % 5.3 % (9.0-44.0); LYMPHOCYTE # 0.7 TH/MM3 (1.0-4.8); MEAN CELL VOLUME 91.6 FL (80.0-100.0); MEAN CORPUSCULAR HEMOGLOBIN 30.2 PG (27.0-34.0); MEAN CORPUSCULAR HGB CONC 32.9 % (32.0-36.0); MONO % 2.3 % (0.0-8.0); MONOCYTE # 0.3 TH/MM3 (0-0.9); PLATELET COUNT 63 TH/MM3 (150-450); RED CELL DISTRIBUTION WIDTH 16.2 % (11.6-17.2); WHITE BLOOD COUNT 12.4 TH/MM3 (4.0-11.0)
[2017-12-24 06:38] LABS: ALBUMIN 1.5 GM/DL (3.4-5.0); BICARBONATE 11.7 MEQ/L (21.0-32.0); CALCIUM 7.2 MG/DL (8.5-10.1); CALCIUM-PROTEIN CORRECTED 8.8 MG/DL (8.5-10.1); CREATININE 1.85 MG/DL (0.50-1.00); MAGNESIUM 3.7 MG/DL (1.5-2.5); TOTAL PROTEIN 4.3 GM/DL (6.4-8.2)
[2017-12-24 06:45] LABS: TOTAL BILIRUBIN ADULT 20.9 MG/DL (0.2-1.0)
[2017-12-24] MEDS: CHLORHEXIDINE 0.12% (ORAL KIT) 15 ML CUP MT SCH ×2 (08:00→20:35)
[2017-12-24 08:15] LABS: BANDS 3 % (0-6); CORRECTED NUCLEATED RBC 22 /100 WBC (0-0); LYMPHOCYTES 4 % (9-44); MONOCYTES 2 % (0-8); NEUTROPHIL # MANUAL DIFF 11.7 TH/MM3 (1.8-7.7); NUCLEATED RED BLOOD CELL 22 (0-0); POLYS (SEG NEUTROPHILS) 91 % (16-70)
[2017-12-24 08:16] LABS: ACANTHOCYTES OCC (NORMAL)
[2017-12-24] MEDS: DIGOXIN 0.125 MG TAB PO SCH (08:57)
[2017-12-24] MEDS: FAMOTIDINE 20 MG TAB PO SCH ×2 (08:58→20:53)
[2017-12-24] MEDS: MAGNESIUM HYDROXIDE SUSP 30 ML CUP PO SCH ×2 (08:58→20:53)
[2017-12-24] MEDS: AMIODARONE 200 MG TAB PO SCH ×2 (08:58→20:53)
[2017-12-24] MEDS: DOCUSATE SODIUM 50 MG/SENNA 8.6 MG TAB PO SCH ×2 (08:58→20:53)
[2017-12-24] MEDS: VANCOMYCIN INJ 1,500 MG in SODIUM CHLORID 0.9% 500 ML INJ 500 ML IV SCH (08:58)
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
[2017-12-24] MEDS: POTASSIUM CHLOR 20 MEQ PREMIX 100 ML IV PRN ×2 (20:33→22:54)
[2017-12-25] VITALS (14 sets, daily range): BP systolic 90–109; BP diastolic 51–56; PULSE 60–77; RESP 18–30; TEMP 96.6–98.2; O2SAT 81–100
[2017-12-25] MEDS: DEXT 5%-NACL 0.45% 1000 ML INJ 1,000 ML IV SCH (03:00)
[2017-12-25] MEDS: CHLORHEXIDINE GLUCONATE 2 % 1 PACK (2 CLOTHS) TOP SCH (04:00)
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
[2017-12-25] MEDS: MEROPENEM INJ 1,000 MG in SODIUM CHLORIDE 0.9% INJ 100 ML IV SCH (05:55)
[2017-12-25] MEDS: METOPROLOL TARTRATE 25 MG TAB PO SCH ×3 (06:00→13:11)
[2017-12-25] MEDS: INSULIN ASPART SUPPLEMENTAL SCALE SQ SCH ×2 (06:00→12:00)
[2017-12-25 07:31] LABS: AUTOMATED NEUTROPHIL # 6.9 TH/MM3 (1.8-7.7); BASOPHIL % 0.1 % (0.0-2.0); EOSINOPHIL # 0.1 TH/MM3 (0-0.4); EOSINOPHIL % 0.7 % (0.0-4.0); HEMATOCRIT 27.5 % (35.0-46.0); HEMOGLOBIN 9.3 GM/DL (11.6-15.3); LYMPH % 5.2 % (9.0-44.0); LYMPHOCYTE # 0.4 TH/MM3 (1.0-4.8); MEAN CORPUSCULAR HEMOGLOBIN 31.4 PG (27.0-34.0); MEAN CORPUSCULAR HGB CONC 33.7 % (32.0-36.0); MEAN PLATELET VOLUME 12.7 FL (7.0-11.0); MONO % 1.6 % (0.0-8.0); MONOCYTE # 0.1 TH/MM3 (0-0.9); NEUT % 92.4 % (16.0-70.0); PLATELET COUNT 71 TH/MM3 (150-450); RED BLOOD COUNT 2.96 MIL/MM3 (4.00-5.30); RED CELL DISTRIBUTION WIDTH 16.4 % (11.6-17.2); WHITE BLOOD COUNT 7.4 TH/MM3 (4.0-11.0)
[2017-12-25 07:37] LABS: ALBUMIN 1.2 GM/DL (3.4-5.0); BICARBONATE 12.9 MEQ/L (21.0-32.0); CALCIUM 7.1 MG/DL (8.5-10.1); CALCIUM-PROTEIN CORRECTED 8.7 MG/DL (8.5-10.1); CREATININE 1.96 MG/DL (0.50-1.00); TOTAL BILIRUBIN ADULT 23.4 MG/DL (0.2-1.0); TOTAL PROTEIN 4.2 GM/DL (6.4-8.2)
[2017-12-25] MEDS: CHLORHEXIDINE 0.12% (ORAL KIT) 15 ML CUP MT SCH (08:00)
[2017-12-25] MEDS: DOCUSATE SODIUM 50 MG/SENNA 8.6 MG TAB PO SCH (09:00)
[2017-12-25] MEDS: MAGNESIUM HYDROXIDE SUSP 30 ML CUP PO SCH (09:00)
[2017-12-25] MEDS: DEXTROSE 50% IN WATER 50 ML SYRINGE IV PUSH PRN (09:13)
[2017-12-25] MEDS: DIGOXIN 0.125 MG TAB PO SCH (09:14)
[2017-12-25] MEDS: AMIODARONE 200 MG TAB PO SCH (09:14)
[2017-12-25] MEDS: FAMOTIDINE 20 MG TAB PO SCH (09:14)
[2017-12-25 09:16] LABS: BANDS 20 % (0-6); BASOPHILS 1 % (0-2); CORRECTED NUCLEATED RBC 69 /100 WBC (0-0); LYMPHOCYTES 3 % (9-44); METAMYELOCYTES 1 % (0-1); MONOCYTES 5 % (0-8); MYELOCYTES 1 % (0-0); NEUTROPHIL # MANUAL DIFF 6.7 TH/MM3 (1.8-7.7); NUCLEATED RED BLOOD CELL 69 (0-0); PLASMA CELLS 1 % (0-0); POLYS (SEG NEUTROPHILS) 68 % (16-70)
[2017-12-25 09:17] LABS: ACANTHOCYTES OCC (NORMAL)
[2017-12-25] MEDS ORDERED: ALBUMIN 5% INJ 500 ML IV ONE (10:00)
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
--- NOTE | 2017-12-25 14:01 | RADRPT ---
EXAM DATE: 12/25/2017 1:43 PM EDT AGE/SEX: 77 years / Female INDICATIONS: . Increasing LFTs. CLINICAL DATA: This is the patient's subsequent encounter. Patient reports that signs and symptoms h ave been present for 1 week and indicates a pain score of 0/10. MEDICAL/SURGICAL HISTORY: Carcinoma, uterine. Hysterectomy. spinal fusion, shoulder surgery, hi p replacement COMPARISON: [facility] – [place] ABDOMEN & PELVIS W/O CONTRAST, 12/25/2017. . TECHNIQUE: Multiplanar, multisequence images of the abdomen were obtained without contrast including dedicated cholangiographic images. FINDINGS: Liver: The liver measures 13.9 cm. Overall density is within normal limits and no focal lesion is anuja reciated. Common bile duct measures 3 mm without stone or distal obstructing process. There is no int rahepatic bile duct dilatation. Gallbladder: There are small stones in the gallbladder and the gallbladder is distended. No wall thic kening is appreciated. Spleen: Within normal limits. Pancreas: No pancreas abnormality is appreciated. Adrenals: Within normal limits. Kidneys: Symmetric size and enhancement. No hydronephrosis or mass. Other: Aorta is nonaneurysmal. No lymphadenopathy is visualized. The remaining surrounding structur es demonstrate no acute abnormality. There is bilateral lower lobe atelectasis versus airspace conso lidation. Chest tube is present on the right. Nasogastric tube is looped in the stomach. There is bryan e fluid in the abdomen around the liver and spleen. Severe subcutaneous edema is present bilaterally. The right retroperitoneal hematoma is partially visualized on this examination. CONCLUSION: 1. No abnormality is identified to explain the increasing LFTs. No bile duct obstruction is present. Liver is overall normal in size and signal intensity. 2. Moderate volume of free fluid in the upper abdomen from uncertain etiology. There is also anasarc a. 3. The right retroperitoneal hematoma is partially visualized and will be further described on abdom en and pelvis CT report. 4. There is bilateral lower lobe consolidation versus atelectasis with right chest tube in place. Electronically signed by: Carlo Patel MD 12/25/2017 1:59 PM EDT
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
[2017-12-25] MEDS ORDERED: HYOSCYAMINE 0.5 MG/ML AMP IV PUSH ONE (14:30)
[2017-12-25] MEDS ORDERED: fentaNYL DRIP 250 ML IV PRN ×2 (14:30→16:15)
[2017-12-25] MEDS ORDERED: HYDROmorphone HCL PF 2 MG/ML VIAL IV PUSH ONE ×2 (14:30→14:45)
[2017-12-25] MEDS ORDERED: LORazepam 2 MG/ML VIAL IV PUSH ONE ×2 (14:30→14:45)
--- NOTE | 2017-12-25 14:35 | RADRPT ---
EXAM DATE: 12/25/2017 1:53 PM EDT AGE/SEX: 77 years / Female INDICATIONS: Altered mental status. Patient not waking up post op over one week. CLINICAL DATA: This is the patient's subsequent encounter. Patient reports that signs and symptoms h ave been present for 1 week and indicates a pain score of Nonresponsive. MEDICAL/SURGICAL HISTORY: Carcinoma, uterine. Hysterectomy. RADIATION DOSE: 66.34 CTDI (mGy) COMPARISON: [facility] – [place], CT BRAIN W/O CONTRAST, 12/15/2017. . TECHNIQUE: CT of the head without contrast. Using automated exposure control and adjustment of the mA and/or kV according to patient size, radiation dose was kept as low as reasonably achievable to ob tain optimal diagnostic quality images. DICOM format image data is available electronically for revi ew and comparison. FINDINGS: Cerebrum: There is mild generalized atrophy and ventricles are normal given the degree of atrophy. M ild periventricular white matter change is present. There is a new area of low density in the left p arietal periventricular white matter. No midline shift, mass lesion, hemorrhage or acute infarction. No extraaxial fluid collections are seen. Posterior Fossa: The cerebellum and brainstem demonstrate no acute abnormality. The 4th ventricle is midline. The cerebellopontine angle is within normal limits. Extracranial: There is now fluid within the mastoid air cells bilaterally and opacification of the l eft frontal sinus. Mucoperiosteal thickening is present within the left sphenoid sinus. Skull: The calvaria is intact. No skull fracture. CONCLUSION: 1. There is a new well-defined area of low density in the left parietal periventricular white matter . This may represent an area of ischemia that has occurred or become radiographically apparent since the prior examination. 2. There is stable generalized atrophy and chronic periventricular white matter change. 3. There is new opacification of the mastoid air cells bilaterally and left frontal sinus. Electronically signed by: Carlo Patel MD 12/25/2017 2:33 PM EDT
--- NOTE | 2017-12-25 14:42 | RADRPT ---
EXAM DATE: 12/25/2017 1:55 PM EDT AGE/SEX: 77 years / Female INDICATIONS: Renal failure. Patient not waking up post op over one week. CLINICAL DATA: This is the patient's initial encounter. Patient reports that signs and symptoms have been present for 1 week and indicates a pain score of Nonresponsive. MEDICAL/SURGICAL HISTORY: Carcinoma, uterine. Hysterectomy. RADIATION DOSE: 19.33 CTDI (mGy) COMPARISON: [facility] – [place], CT ABDOMEN & PELVIS W/O CONTRAST, 12/12/2017. . TECHNIQUE: Multiple contiguous axial images were obtained through the abdomen. Images were obtained using multiple row detector helical technique. Using automated exposure control and adjustment of the mA and/or kV according to patient size, radiation dose was kept as low as reasonably achievable to o btain optimal diagnostic quality images. DICOM format image data is available electronically for rev iew and comparison. FINDINGS: Lower chest: There is bilateral lower lobe airspace consolidation versus atelectasis. Chest tube is p resent on the right. No pneumothorax is visualized. Hepatobiliary: Liver density is normal. No focal liver lesion is seen on this noncontrast examination . There are small high density stones in the gallbladder. Kidneys: No hydronephrosis, stone, or mass. Adrenal Glands: Within normal limits. Spleen: Within normal limits. Pancreas: No acute abnormality. Vascular: The aorta is nonaneurysmal. There is moderate atherosclerotic disease. Bowel/Mesentery: Nasogastric tube is looped in the stomach. Small bowel demonstrates no acute finding . No acute colon abnormality is visualized. There is free fluid within the abdomen and pelvis, most o f which is in a perihepatic and perisplenic location. The fluid in the pelvis demonstrates a hematocr it level. There is no free intraperitoneal air. Abdominal Wall: There is anasarca. Retroperitoneum: Extensive field there is a right side retroperitoneal hematoma measuring approximate ly 15.3 x 8.7 x 20.6 cm, not significantly changed from the prior examination. Bladder: Decompressed with a Mcqueen catheter in place. Reproductive: Uterus is absent. No adnexal abnormality is seen. Inguinal: No lymphadenopathy or hernia. Musculoskeletal: Right proximal femur hardware is present. There is bilateral hip joint osteoarthriti s. The displaced right iliac wing fracture remains visualized and there are fractures of the sacral a la bilaterally. The rib fractures and thoracic spine fractures are stable. There has been prior verte bral plasty at T12. Vertebral body fracture at T11 is stable. CONCLUSION: 1. The right retroperitoneal hematoma is stable in size. This is adjacent to the right iliac bone fr acture. 2. Small to moderate volume of free fluid in the abdomen and pelvis with hematocrit level in the flu id within the pelvis. Volume of fluid has not significantly changed. 3. Anasarca. 4. The fractures of the sacrum, thoracic spine, ribs, and pelvis have not significantly changed. 5. There is bilateral lower lobe atelectasis versus consolidation with right chest tube in place. Electronically signed by: Carlo Patel MD 12/25/2017 2:41 PM EDT
[2017-12-25] MEDS ORDERED: FUROSEMIDE 20 MG/2 ML VIAL IV PUSH PRN (15:00)
[2017-12-25] MEDS ORDERED: HYDROmorphone HCL PF 2 MG/ML VIAL IV PUSH PRN ×4 (15:00→16:30)
[2017-12-25] MEDS ORDERED: LORazepam 2 MG/ML VIAL IV PUSH PRN ×3 (15:00)
[2017-12-25] MEDS ORDERED: HYOSCYAMINE 0.5 MG/ML AMP IV PUSH PRN (15:00)
[2017-12-25] MEDS ORDERED: LORazepam 2 MG/ML VIAL IV PUSH SCH (16:00)
[2017-12-25] MEDS ORDERED: LORazepam 2 MG/ML VIAL IV PUSH STA (16:10)
[2017-12-25] MEDS ORDERED: MEROPENEM INJ 500 MG in SODIUM CHLORIDE 0.9% INJ 100 ML IV SCH (17:00)
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
[2017-12-27] MEDS ORDERED: PHARMACY ORDERED LAB ONE (09:45)
== END 2017-12-26 00:06 | disposition expired | DRG 963 ==
LOC: NEPC 12:42 → NEDA 13:57 → N03B 14:28
PROVIDERS: ADMIT Surgery; ATTEND Surgery
PROC: 5A1955Z Respiratory Ventilation, Greater than 96 Consecutive Hours (ICD-10-PCS; principal; 2017-12-11)
PROC: 0BH17EZ Insertion of Endotracheal Airway into Trachea, Via Natural or Artificial Opening (ICD-10-PCS; 2017-12-11)
PROC: 0W9930Z Drainage of Right Pleural Cavity with Drainage Device, Percutaneous Approach (ICD-10-PCS; 2017-12-11)
PROC: 05H533Z Insertion of Infusion Device into Right Subclavian Vein, Percutaneous Approach (ICD-10-PCS; 2017-12-11)
PROC: 30233K1 Transfusion of Nonautologous Frozen Plasma into Peripheral Vein, Percutaneous Approach (ICD-10-PCS; 2017-12-11)
PROC: 30233N1 Transfusion of Nonautologous Red Blood Cells into Peripheral Vein, Percutaneous Approach (ICD-10-PCS; 2017-12-11)
PROC: 30233M1 Transfusion of Nonautologous Plasma Cryoprecipitate into Peripheral Vein, Percutaneous Approach (ICD-10-PCS; 2017-12-11)
PROC: 6A551Z2 Pheresis of Platelets, Multiple (ICD-10-PCS; 2017-12-11)
PROC: 0DH67UZ Insertion of Feeding Device into Stomach, Via Natural or Artificial Opening (ICD-10-PCS; 2017-12-12)
PROC: 0T9B70Z Drainage of Bladder with Drainage Device, Via Natural or Artificial Opening (ICD-10-PCS; 2017-12-12)
DX: S22.43XA Multiple fractures of ribs, bilateral, initial encounter for closed fracture (principal); S32.491A Other specified fracture of right acetabulum, initial encounter for closed fracture; D65 Disseminated intravascular coagulation [defibrination syndrome]; S26.91XA Contusion of heart, unspecified with or without hemopericardium, initial encounter; I63.40 Cerebral infarction due to embolism of unspecified cerebral artery; K72.00 Acute and subacute hepatic failure without coma; J96.00 Acute respiratory failure, unspecified whether with hypoxia or hypercapnia; A41.9 Sepsis, unspecified organism; T79.4XXA Traumatic shock, initial encounter; R57.1 Hypovolemic shock; K66.1 Hemoperitoneum; N17.0 Acute kidney failure with tubular necrosis; S27.2XXA Traumatic hemopneumothorax, initial encounter; S27.1XXA Traumatic hemothorax, initial encounter; G93.41 Metabolic encephalopathy; S12.120A Other displaced dens fracture, initial encounter for closed fracture; R18.8 Other ascites; S12.500A Unspecified displaced fracture of sixth cervical vertebra, initial encounter for closed fracture; S32.119A Unspecified Zone I fracture of sacrum, initial encounter for closed fracture; S25.81 Laceration of other blood vessels of thorax; S22.068A Other fracture of T7-T8 thoracic vertebra, initial encounter for closed fracture; S32.391A Other fracture of right ilium, initial encounter for closed fracture; S22.088A Other fracture of T11-T12 vertebra, initial encounter for closed fracture; S12.590A Other displaced fracture of sixth cervical vertebra, initial encounter for closed fracture; S27.321A Contusion of lung, unilateral, initial encounter; N17.9 Acute kidney failure, unspecified; E23.2 Diabetes insipidus; Z99.11 Dependence on respirator [ventilator] status; G81.91 Hemiplegia, unspecified affecting right dominant side; E87.0 Hyperosmolality and hypernatremia; E87.4 Mixed disorder of acid-base balance; J90 Pleural effusion, not elsewhere classified; M32.9 Systemic lupus erythematosus, unspecified; V43.52XA Car driver injured in collision with other type car in traffic accident, initial encounter; Y92.410 Unspecified street and highway as the place of occurrence of the external cause; S20.211A Contusion of right front wall of thorax, initial encounter; Z96.649 Presence of unspecified artificial hip joint; M48.04 Spinal stenosis, thoracic region; M53.2X4 Spinal instabilities, thoracic region; M19.90 Unspecified osteoarthritis, unspecified site; Z51.5 Encounter for palliative care; I48.91 Unspecified atrial fibrillation; I08.8 Other rheumatic multiple valve diseases; F07.81 Postconcussional syndrome; R19.7 Diarrhea, unspecified; B95.2 Enterococcus as the cause of diseases classified elsewhere; Z87.01 Personal history of pneumonia (recurrent); Z78.1 Physical restraint status; Z98.1 Arthrodesis status; Z90.710 Acquired absence of both cervix and uterus; Z85.42 Personal history of malignant neoplasm of other parts of uterus; J44.9 Chronic obstructive pulmonary disease, unspecified; I10 Essential (primary) hypertension; E87.6 Hypokalemia; E83.51 Hypocalcemia; M25.511 Pain in right shoulder; D64.9 Anemia, unspecified; B95.62 Methicillin resistant Staphylococcus aureus infection as the cause of diseases classified elsewhere
CPT/HCPCS: 31500; 36430; 36600; 70450; 70551; 71045; 71250; 71260; 72125; 72128; 72129; 72132; 72141; 72146; 73564; 73610; 74176; 74177; 74181; 76377; 76937; 80048; 80053; 80162; 80202; 81003; 82140; 82565; 82607; 82805; 82948; 83605; 83735; 83935; 84100; 84132; 84155; 84295; 84443; 84484; 85007; 85014; 85018; 85025; 85027; 85610; 85730; 86403; 86850; 86900; 86901; 86920; 86927; 86965; 87040; 87070; 87077; 87086; 87147; 87186; 87205; 87493; 87641; 93005; 93306; 93970; 94002; 94003; 94640; 94664; 95819; 96361; 96374; J0282; J0610; J1160; J1170; J1815; J1940; J1980; J2060; J2185; J2250; J2270; J2370; J2543; J2597; J2765; J3010; J3370; J3475; J3480; J7030; J7040; J7050; J7060; J7070; J7120; P9016; P9017; P9035; P9045; Q9967